=== PATIENT | male | born 1970 | race Caucasian/White ===

== ENCOUNTER 2021-12-22 16:58 | Inpatient (IN) ==
[2021-12-22] MEDS ORDERED: NS 1,000 ML IV 1,000 ML ONE (19:04)
--- NOTE | 2021-12-22 19:04 | DR.GENAD ---
HPI Time Seen Time Seen by Provider: 12/22/21 18:56 PCP Primary Care Physician: DIONNE RAMOS HPI Comment HPI Comment: PATIENT IS 51YR OLD MALE WITH BELOW HISTORY. Complaint/Symptoms Chief Complaint Doctors Comments: IV DRUG USE WEDNESDAY IN LEFT FOREARM. ON WEDNESDAY, REDNESS, SWELLING AND PAIN LEFT HAND AND FOREARM. LOW GRADE FEVER. SEEN AT [facility] [[email or web address] TO DAY AND REFER TO ER. OBVIOUD NEEDLE TRACT NOTED BOTH UPPER EXTREMITIES. Chief Complaint:: PT INJECTED "BAD HEROIN" INTO VEINS ON WEDNESDAY AND HE WOKE UP WEDNESDAY AND LEFT ARM WAS SWOLLEN, RED AND PAINFUL TO TOUCH. PT STATES HE WAS RUNNING FEVER AT HOME, TOOK TYLENOL AT HOME. 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 Improves:: KEEPING HAND STILL. Associated Signs and Symptoms Associated Signs and Symptoms: MUSCLE PAIN. Other History Other History: DM, HTN, IV DRUG USE. PMH PMH Past Medical History: Yes Past Medical History: COPD, Diabetes and Hypertension Past Medical History Comment: IV DRUG USER, DIVERTICULITIS Past Surgical History: Yes Surgical History: Other Past Surgical History Comment: MRSA Family History History of Family Medical Conditions: Yes Family Medical History: Cancer and [place] Social History Does any household member use tobacco: No Alcohol Use: None Do you use any recreational Drugs:: Yes (HEROIN,METH) Lives With: Dad Lives Where: Home Travel Risk Coronavirus risk:travel/contact w/high risk person: No Has patient experienced Coronavirus symptoms: Yes Coronavirus symptoms experienced: Fever Infectious screening In the last 2 months have you had wt loss of >10#?: NO Have you had fever, night sweats or hemotysis?: No Have you traveled outside the country in the last 6 months?: No Isolation: Standard ROS Review of Systems Constitutional: See HPI and Fever; negative Weakness and Fatigue Eyes: No Symptoms Reported and See HPI ENTM: No Symptoms Reported and See HPI; negative Nose Discharge and Nose Congestion Respiratoy: No Symptoms Reported and See HPI; negative Moist Cough, Short of Breath and Wheezing Cardiovascular: No Symptoms Reported and See HPI; negative Chest Pain and Edema Gastrointestinal/Abdominal: No Symptoms Reported and See HPI; negative Abdominal Pain, Diarrhea and Vomiting Genitourinary: No Symptoms Reported and See HPI; negative Dysuria, Frequency and Hematuria Neurological: No Symptoms Reported and See HPI; negative Headache, Weakness and Dizziness Musculoskeletal: No Symptoms Reported, See HPI, Forearm (LEFT FOREARM PAIN, REDNESS AND SWELLING.) and Hand (LEFT HAND SWOLLEN AND RED.); negative Back Pain Integumentary: See HPI and Change in Color; negative Rash and Juandice Hematologic/Lymphatic: No Symptoms Reported and See HPI Endocrine: No Symptoms Reported and See HPI Psychiatric: No Symptoms Reported and See HPI All Other Systems: Reviewed and Negative PE Vital Signs Vitals: Temperature 99.5 F Pulse Rate 102 Respiratory Rate 20 Blood Pressure 130/77 O2 Sat by Pulse Oximetry 100 General Limitations: No Limitations General Appearance: Alert and In No Apparent Distress Head Head Exam: Normal Inspection Eyes Eye exam: Normal Appearance; negative Scleral Icterus and Conjunctival Injection ENT ENT Exam: Normal Exam, Normal Oropharynx, Normal External Ear Exam and TM's Normal Bilaterally External Ear Exam: Normal External Inspection; negative Mastoid Tenderness TM/Canal Exam: Bilateral: Normal Nose Exam: Normal Nose Exam Mouth Exam: Normal Inspection; negative Lip Swelling and Tongue Swelling Throat Exam: Normal Inspection; negative Tonsillar Erythema, Tonsillomegaly and Tonsillar Exudate Neck Neck Exam: Normal Inspection and Trachea Midline; negative Tenderness Chest Chest Inspection: Normal Inspection and Symmetric Chest Wall Rise; negative Tenderness Respiratory Respiratory Exam: Normal Lung Sounds Bilat; negative Accessory Muscle Use, Chest Wall Tenderness and Respiratory Distress Respiratory Exam: Bilateral: Clear to Auscultation Cardiovascular Cardiovascular Exam: Regular Rate, Normal Rhythm and Normal Heart Sounds; negative Systolic Murmur and Diastolic Murmur Abdominal Exam Abdominal Exam: Normal Inspection, Normal Bowel Sounds and Soft; negative Tenderness Extremities Extremities Exam: Tenderness (TENDERNESS LEFT HAND AND FOREARM WITH REDNESS AND SWELLING.) Back Back Exam: Normal Inspection Neurologic Neurological Exam: Alert and Oriented X3; negative Motor Sensory Deficit Psychiatric Psychiatric Exam: Normal Affect and Normal Mood Skin Skin Exam: Erythema (REDNESS, SWELLING AND TENDERNESS LT FOREARM AND HAND.) MDM Differential Diagnosis Differential Diagnosis: CELLULITIS LEFT FOREARM AND HAND. IV DRUG USE. COURSE Treatment Treatment: SEE ORDERS DONE WHILE PATIENT WAS IN ER. NS 1L IV BOLUS, TORADOL 30MG IV, MORPHIN 4MBG IV, INVANC 1GM IVPB, VANCOMYCIN 1GM IVPB WAS GIVEN PATIENT WHILE IN ER. LABS AND XRAY REPORT DISCUSSED WITH PATIENT. [facility]. Consultation Consultation Comments: DISCUSSED PATIENT WITH DR. IRELAND. HE WILL ADMIT PATIENT. Education/Counseling Education/Counseling: Patient Educated On: Diagnosis ROR Labs Reviewed Laboratory Results Reviewed?: Yes Result Diagrams: 12/25/21 06:20 12/25/21 06:20 Laboratory: 12/22/21 19:52 Blood Blood Culture - Preliminary 12/22/21 19:38 Blood Blood Culture - Preliminary WBC 10.2 X10^3/uL (3.6-10.0) H 12/22/21 19:38 RBC 4.30 X10^6/uL (4.7-6.0) L 12/22/21 19:38 Hgb 12.4 g/dL (13.5-18.0) L 12/22/21 19:38 Hct 35.6 % (42.0-54.0) L 12/22/21 19:38 MCV 82.9 fL (80.0-100.0) 12/22/21 19:38 MCH 28.8 pg (27.0-34.0) 12/22/21 19:38 MCHC 34.7 g/dL (33.0-35.0) 12/22/21 19:38 RDW 14.4 % (11.6-16.5) 12/22/21 19:38 Plt Count 122 X10^3/uL (150.0-450.0) L 12/22/21 19:38 MPV 8.7 fL (7.4-11.0) 12/22/21 19:38 Neut % (Auto) 74.0 % (42.0-75.0) 12/22/21 19:38 Lymph % (Auto) 12.4 % (21.0-51.0) L 12/22/21 19:38 [place] % (Auto) 12.9 % (0.0-13.0) 12/22/21 19:38 Eos % (Auto) 0.3 % (0.9-2.9) L 12/22/21 19:38 Baso % (Auto) 0.4 % (0.2-1.0) 12/22/21 19:38 Neut # (Auto) 7.5 x10^3/uL (2.2-4.8) H 12/22/21 19:38 Lymph # (Auto) 1.3 X10^3/uL (1.3-2.9) 12/22/21 19:38 [place] # (Auto) 1.3 x10^3/uL (0.3-0.8) H 12/22/21 19:38 Eos # (Auto) 0.0 x10^3/uL (0.0-0.2) 12/22/21 19:38 Baso # (Auto) 0.0 X10^3/uL (0.0-0.1) 12/22/21 19:38 Absolute Nucleated RBC 0.1 /100WBC 12/22/21 19:38 ESR 58 MM/HOUR (0-15) H 12/22/21 19:38 Sodium 125 mmol/L (136-145) L* 12/22/21 19:38 Corrected Sodium 130 mmol/L (136-145) L 12/22/21 19:38 Potassium 4.1 mmol/L (3.5-5.1) 12/22/21 19:38 Chloride 91 mmol/L (98-107) L 12/22/21 19:38 Carbon Dioxide 28.2 mmol/L (21-32) 12/22/21 19:38 BUN 6 mg/dL (7-18) L 12/22/21 19:38 Creatinine 0.57 mg/dL (0.70-1.30) L 12/22/21 19:38 Est GFR (MDRD) Af Amer > 60 (>60) 12/22/21 19:38 Est GFR (MDRD) Non-Af > 60 (>60) 12/22/21 19:38 Glucose 308 mg/dL (65-99) H 12/22/21 19:38 Calcium 8.5 mg/dL (8.5-10.1) 12/22/21 19:38 Corrected Calcium 9.3 mg/dL (8.5-10.1) 12/22/21 19:38 Total Bilirubin 0.30 mg/dL (0.2-1.0) 12/22/21 19:38 AST 17 Units/L (15-37) 12/22/21 19:38 ALT 26 Units/L (12-78) 12/22/21 19:38 Alkaline Phosphatase 147 Units/L (46-116) H 12/22/21 19:38 C-Reactive Protein 126.60 mg/L (0-3.0) H 12/22/21 19:38 Total Protein 7.2 g/dL (6.4-8.2) 12/22/21 19:38 Albumin 3.0 g/dL (3.4-5.0) L 12/22/21 19:38 Globulin 4.2 g/dL (2.5-4.5) 12/22/21 19:38 Albumin/Globulin Ratio 0.7 Ratio (1.1-2.1) L 12/22/21 19:38 Specimen Type Random urine 12/22/21 21:01 Urine Color Yellow (YELLOW) 12/22/21 21: Urine Appearance Clear (CLEAR) 12/22/21 21: Urine pH 8.0 (5.0 - 8.0) 12/22/21 21: Ur Specific [place] 1.015 (1.000-1.030) 12/22/21 21: Urine Protein Negative (NEGATIVE) 12/22/21 21: Urine Glucose (UA) 4+ (NEGATIVE) 12/22/21 21: Urine Ketones 1+ (NEGATIVE) 12/22/21 21:01 Urine Blood Negative (NEGATIVE) 12/22/21 21: Urine Nitrite Negative (NEGATIVE) 12/22/21 21: Urine Bilirubin Negative (NEGATIVE) 12/22/21 21: Urine Urobilinogen Normal (NORMAL) 12/22/21 21: Ur Leukocyte Esterase Negative (NEGATIVE) 12/22/21 21: Urine Opiates Screen Positive (NEG=<300) 12/22/21 21: Urine Methadone Screen Negative (NEG=<300) 12/22/21 21: Ur Barbiturates Screen Negative (NEG=<200) 12/22/21 21: Ur Phencyclidine Scrn Negative (NEG=<25) 12/22/21 21: Ur Amphetamines Screen Negative (NEG=<1000) 12/22/21 21: U Benzodiazepines Scrn Negative (NEG=<200) 12/22/21 21:01 Urine Cocaine Screen Negative (NEG=<300) 12/22/21 21:01 U Marijuana (THC) Screen Negative (NEG=<50) 12/22/21 21:01 XRAY XRAY Interpreted by: Radiologist (REPORT NOTED.) and Self Opioid Opioid Risk Tool Age (Shay box if 16-45): No History of Preadolescent Sexual Abuse: No Total: 0 Total Score Risk Category: Low Risk Copyright: Luca NEELY predicting aberrant behaviors Diagnosis Discharge Problem: Cellulitis of forearm, left, Cellulitis of left hand Instructions Forms: Precautions for COVID19 [facility] Social Distancing
[2021-12-22] MEDS: NS 1,000 ML IV 1,000 ML IV SCH (19:54)
[2021-12-22 20:01] LABS: BASOPHILS % (AUTO) 0.4 % (0.2-1.0); EOSINOPHILS % (AUTO) 0.3 % (0.9-2.9); HEMATOCRIT 35.6 % (42.0-54.0); HEMOGLOBIN 12.4 g/dL (13.5-18.0); LYMPHOCYTES # (AUTO) 1.3 X10^3/uL (1.3-2.9); LYMPHOCYTES % (AUTO) 12.4 % (21.0-51.0); MEAN CORPUSCULAR HEMOGLOBIN 28.8 pg (27.0-34.0); MEAN CORPUSCULAR HGB CONC 34.7 g/dL (33.0-35.0); MEAN CORPUSCULAR VOLUME 82.9 fL (80.0-100.0); MEAN PLATELET VOLUME 8.7 fL (7.4-11.0); MONOCYTES # (AUTO) 1.3 x10^3/uL (0.3-0.8); MONOCYTES % (AUTO) 12.9 % (0.0-13.0); NEUTROPHILS # (AUTO) 7.5 x10^3/uL (2.2-4.8); RED CELL DISTRIBUTION WIDTH 14.4 % (11.6-16.5); WHITE BLOOD COUNT 10.2 X10^3/uL (3.6-10.0)
[2021-12-22 20:12] LABS: ALANINE AMINOTRANSFERASE 26 Units/L (12-78); ALKALINE PHOSPHATASE 147 Units/L (46-116); ASPARTATE AMINO TRANSFERASE 17 Units/L (15-37); BLOOD UREA NITROGEN 6 mg/dL (7-18); CALCIUM 8.5 mg/dL (8.5-10.1); CARBON DIOXIDE 28.2 mmol/L (21-32); CHLORIDE 91 mmol/L (98-107); COR CA(FOR HYPOALB) 9.3 mg/dL (8.5-10.1); COR NA(FOR HYPERGLY) 130 mmol/L (136-145); CREATININE 0.57 mg/dL (0.70-1.30); TOTAL PROTEIN 7.2 g/dL (6.4-8.2); eGFR NON BLACK RACES > 60 (>60)
[2021-12-22 20:19] LABS: SODIUM 125 mmol/L (136-145)
[2021-12-22 21:21] LABS: BILIRUBIN,URINE NEGATIVE (NEGATIVE); BLOOD/HEMOGLOBIN,URINE NEGATIVE (NEGATIVE); GLUCOSE, URINE 4+ (NEGATIVE); KETONES,URINE 1+ (NEGATIVE); LEUKOCYTE ESTERASE ,URINE NEGATIVE (NEGATIVE); NITRITES,URINE NEGATIVE (NEGATIVE); PROTEIN,URINE NEGATIVE (NEGATIVE); UROBILINOGEN,URINE NORMAL (NORMAL)
[2021-12-22 21:24] LABS: APPEARANCE,URINE CLEAR (CLEAR); COLOR,URINE YELLOW (YELLOW)
[2021-12-22] MEDS ORDERED: TORADOL 30 MG VIAL IVP ONE (21:28)
[2021-12-22] MEDS ORDERED: TORADOL 30 MG VIAL ONE (21:30)
[2021-12-22] MEDS ORDERED: ZOFRAN INJ 4 MG VIAL IVP ONE (22:23)
[2021-12-22] MEDS ORDERED: MORPHINE SULFATE INJ 4 MG IVP ONE (22:23)
[2021-12-22] MEDS ORDERED: ZOFRAN INJ 4 MG VIAL ONE (22:24)
[2021-12-22] MEDS ORDERED: MORPHINE SULFATE INJ 4 MG ONE (22:24)
--- NOTE | 2021-12-22 23:38 | RAD ---
EXAM: LEFT HAND X-RAY SERIESHISTORY: Hand pain and tenderness.TECHNIQUE: 2 viewsCOMPARISON: None available.FINDINGS:There is no acute bony fracture, or joint subluxation or dislocation seen. No focal bone erosion or sclerosis is seen. No evidence for inflammatory or degenerative arthritis is seen. No soft tissue emphysema, radiodense soft tissue abnormality or foreign body is seen.IMPRESSION:1. No acute bony fracture, or joint subluxation or dislocation seen.2. No soft tissue emphysema, radiodense soft tissue abnormality or foreign body seen.3. Consider follow-up evaluation with MRI as clinically warranted or if symptoms persist or worsen.Electronically signed by: Carolina Rodríguez (Dec 22, 2021 23:38:10)
--- NOTE | 2021-12-22 23:48 | RAD ---
EXAM: LEFT FOREARM X-RAY SERIESHISTORY: Arm pain and swelling. Injected "bad heroin" on Wednesday.TECHNIQUE: 2 viewsCOMPARISON: None available.FINDINGS:There is no acute bony fracture, or joint subluxation or dislocation seen. No focal bone erosion or sclerosis is seen. No evidence for inflammatory or degenerative arthritis is seen. No soft tissue emphysema, radiodense soft tissue abnormality or foreign body is seen.IMPRESSION:1. No acute bony fracture, or joint subluxation or dislocation seen.2. No soft tissue emphysema, radiodense soft tissue abnormality or foreign body seen.Electronically signed by: Carolina Rodríguez (Dec 22, 2021 23:47:14)
[2021-12-23] MEDS ORDERED: INVanz INJ 1 GRAM VIAL 1 G in NS 100 ML IV 100 ML IV SCH (00:06)
[2021-12-23] MEDS ORDERED: INVanz INJ 1 GRAM VIAL ONE (00:29)
[2021-12-23] MEDS ORDERED: NS 100 ML IV 100 ML ONE (00:29)
[2021-12-23] MEDS ORDERED: ZOFRAN TAB 4 MG PO PRN (00:38)
[2021-12-23] MEDS ORDERED: MOTRIN TAB 600 MG PO PRN (00:38)
[2021-12-23] MEDS ORDERED: NS 1,000 ML IV 1,000 ML IV SCH (01:00)
[2021-12-23 01:47] VITALS: BMI 21.3
[2021-12-23] MEDS: PHARMACY CONSULT - VANCOMYCIN XX SCH (01:51)
[2021-12-23] MEDS: MORPHINE SULFATE INJ 2 MG INJ IVP PRN ×5 (02:39→21:08)
[2021-12-23] MEDS: NS 1,000 ML IV 1,000 ML IV SCH ×4 (03:10→19:49)
[2021-12-23 04:36] LABS: BASOPHILS # (AUTO) 0.1 X10^3/uL (0.0-0.1); BASOPHILS % (AUTO) 0.7 % (0.2-1.0); EOSINOPHILS # (AUTO) 0.1 x10^3/uL (0.0-0.2); EOSINOPHILS % (AUTO) 0.6 % (0.9-2.9); HEMATOCRIT 34.1 % (42.0-54.0); HEMOGLOBIN 11.7 g/dL (13.5-18.0); LYMPHOCYTES # (AUTO) 1.1 X10^3/uL (1.3-2.9); LYMPHOCYTES % (AUTO) 12.1 % (21.0-51.0); MEAN CORPUSCULAR HEMOGLOBIN 28.6 pg (27.0-34.0); MEAN CORPUSCULAR HGB CONC 34.4 g/dL (33.0-35.0); MEAN PLATELET VOLUME 8.8 fL (7.4-11.0); MONOCYTES % (AUTO) 10.3 % (0.0-13.0); NEUTROPHILS # (AUTO) 7.1 x10^3/uL (2.2-4.8); NEUTROPHILS % (AUTO) 76.3 % (42.0-75.0); RED BLOOD COUNT 4.11 X10^6/uL (4.7-6.0); RED CELL DISTRIBUTION WIDTH 14.2 % (11.6-16.5); WHITE BLOOD COUNT 9.3 X10^3/uL (3.6-10.0)
[2021-12-23 05:11] LABS: ALANINE AMINOTRANSFERASE 21 Units/L (12-78); ALBUMIN 2.6 g/dL (3.4-5.0); ALKALINE PHOSPHATASE 139 Units/L (46-116); ASPARTATE AMINO TRANSFERASE 16 Units/L (15-37); BLOOD UREA NITROGEN 8 mg/dL (7-18); CHLORIDE 95 mmol/L (98-107); COR CA(FOR HYPOALB) 9.1 mg/dL (8.5-10.1); COR NA(FOR HYPERGLY) 134 mmol/L (136-145); CREATININE 0.68 mg/dL (0.70-1.30); SODIUM 128 mmol/L (136-145); TOTAL PROTEIN 6.6 g/dL (6.4-8.2); eGFR NON BLACK RACES > 60 (>60)
[2021-12-23] MEDS: VANCOMYCIN IV *PREMIX 1 G/200 ML BAG 1 G/200 ML PIGGYBACK IV SCH ×2 (08:09→21:07)
[2021-12-23] MEDS: VSL#3 PO SCH (08:10)
[2021-12-23] MEDS: LOVENOX INJ 40 MG SYR SC SCH (08:29)
[2021-12-23] MEDS: TORADOL 30 MG VIAL IVP PRN ×2 (12:25→17:29)
[2021-12-23] MEDS ORDERED: HumaLOG SC PRN (12:26)
[2021-12-23] MEDS: PERCOCET TAB 5/325 MG PO PRN ×2 (13:18→19:15)
[2021-12-23] MEDS: NovoLIN R (or HumuLIN R) SC PRN ×2 (17:30→21:00)
--- NOTE | 2021-12-23 20:55 | DR.H&P ---
H&P - History & Physical for Day of: H&P Date: 12/22/21 - Chief Complaint Chief Complaint: Left arm pain and sweling. - History of Present Illness History of Present Illness: Patient is a 51 year old white male who is being admitted due to cellulitis left arm from IV drug use. 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 Patient has had cellulitis in the past due to IV drug use. History of MRSA. Patient reports severe pain to arm with swelling and fever. 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 PMH COPD, DM, HTN. Patient states he plans to get back on suboxone once discharged. - Past Medical History Past Medical History: Hypertension, Diabetes, COPD - Past Surgical History Surgical History: Other (Chest surgery due to cellulitis from IV drug use. ) - Family History Family Medical History: Diabetes Mellitus - Social History Does patient currently use any type of tobacco product: Yes Have you used tobacco products in the last 12 months: Yes Type of Tobacco Use: Cigarettes Does any household member use tobacco: No Alcohol Use: None Drug Use: Prescription Drugs, Cocaine, Methamphetamine, Marijuana - Medications Home Medications: Penicillins Allergy (Verified 12/22/21 17:12) CONTINUE taking the following medications alogliptin-metformin [Kazano] 1 tab PO BID 12/22/21 [History] dulaglutide [Trulicity] 0.75 mg SUBCUT QWEEK 12/22/21 [History] lisinopril 5 mg PO DAILY 12/22/21 [History] propranolol 2.5 mg PO BID 12/22/21 [History] - Review of Systems Constitutional: See HPI Eyes: See HPI ENT: See HPI Respiratory: See HPI Cardiovascular: See HPI Gastrointestinal: See HPI Genitourinary: See HPI Musculoskeletal: See HPI Skin: See HPI Neurological: See HPI - Physical Exam Vital Signs: Temperature 97.9 F Pulse Rate [Brachial] 78 Pulse Rate [Right Brachial] 88 Pulse Rate 102 Respiratory Rate 16 Blood Pressure [Left Arm] 108/58 Blood Pressure [Right Arm] 129/66 Blood Pressure 130/77 O2 Sat by Pulse Oximetry 100 Oriented: Normal, Time, Person, Place Eyes: Normal Ear: Normal Nose: Normal Throat: Normal Respiratory: Clear Throughout Cardiovascular: Normal : Normal Auscultation: Bowel Sounds: Normal Palpation: Normal Tenderness: Normal Skin: Red, Tender, Hot, Other (Left upper arm extensive cellulitis) Musculoskeletal: Normal Psychiatric: Anxiety Mood Description: Anxious Affect: Anxious Speech Pattern: Clear, Appropriate - Assessment/Plan (1) Cellulitis of left hand Status: Acute (2) Cellulitis of forearm, left Status: Acute Plan: Admit. IV antibiotics. Pain control. Repeat labs in am. Cultures pending (3) Left arm pain Status: Acute (4) Hypertension Status: Chronic (5) Diabetes Qualifiers: Diabetes mellitus type: type 2 Status: Chronic (6) COPD (chronic obstructive pulmonary disease) Status: Chronic - Allergies Allergies/Adverse Reactions: Allergies Allergy/AdvReac Type Severity Reaction Status Date / Time Penicillins Allergy Verified 12/22/21 17:12
--- NOTE | 2021-12-23 21:00 | PCM.PROG ---
Progress Note - Subjective Subjective: Patient is a 51 year old male who was admitted as per HPI. Patient continues to report pain. Minimal improvement in cellulitis of left arm. No new concerns or issues. - Past Medical Family Social History Past Med/Fam/Surg Hx: No changes since H&P Allergies: Allergies Penicillins Allergy (Verified 12/22/21 17:12) - Review of Systems ROS: No change since H&P - Vital Signs and I&O's Vital Signs: Temperature 97.9 F Pulse Rate [Brachial] 78 Pulse Rate [Right Brachial] 88 Pulse Rate 102 Respiratory Rate 16 Blood Pressure [Left Arm] 108/58 Blood Pressure [Right Arm] 129/66 Blood Pressure 130/77 O2 Sat by Pulse Oximetry 100 Intake and Output: Intake & Output 12/20/21 12/21/21 12/22/21 12/23/21 23:59 23:59 23:59 23:59 Intake Total 2957 / 2957 Output Total 2300 / 2300 Balance 657 / 657 - Physical Exam Oriented: Normal, Time, Person, Place Eyes: Normal Ear: Normal Nose: Normal Throat: Normal Respiratory: Normal Cardiovascular: Normal : Normal Auscultation: Bowel Sounds: Normal Palpation: Normal Tenderness: Normal Skin: Red, Tender, Hot, Other (Left upper arm extensive cellulitis) Musculoskeletal: Normal Psychiatric: Anxiety Mood Description: Anxious Affect: Anxious Speech Pattern: Clear, Appropriate - Laboratory and Diagnostics Result Diagrams: 12/23/21 03:50 12/23/21 03:50 Labs: Laboratory WBC 9.3 X10^3/uL (3.6-10.0) 12/23/21 03:50 RBC 4.11 X10^6/uL (4.7-6.0) L 12/23/21 03:50 Hgb 11.7 g/dL (13.5-18.0) L 12/23/21 03:50 Hct 34.1 % (42.0-54.0) L 12/23/21 03:50 MCV 83.0 fL (80.0-100.0) 12/23/21 03:50 MCH 28.6 pg (27.0-34.0) 12/23/21 03:50 MCHC 34.4 g/dL (33.0-35.0) 12/23/21 03:50 RDW 14.2 % (11.6-16.5) 12/23/21 03:50 Plt Count 133 X10^3/uL (150.0-450.0) L 12/23/21 03:50 MPV 8.8 fL (7.4-11.0) 12/23/21 03:50 Neut % (Auto) 76.3 % (42.0-75.0) H 12/23/21 03:50 Lymph % (Auto) 12.1 % (21.0-51.0) L 12/23/21 03:50 [place] % (Auto) 10.3 % (0.0-13.0) 12/23/21 03:50 Eos % (Auto) 0.6 % (0.9-2.9) L 12/23/21 03:50 Baso % (Auto) 0.7 % (0.2-1.0) 12/23/21 03:50 Neut # (Auto) 7.1 x10^3/uL (2.2-4.8) H 12/23/21 03:50 Lymph # (Auto) 1.1 X10^3/uL (1.3-2.9) L 12/23/21 03:50 [place] # (Auto) 1.0 x10^3/uL (0.3-0.8) H 12/23/21 03:50 Eos # (Auto) 0.1 x10^3/uL (0.0-0.2) 12/23/21 03:50 Baso # (Auto) 0.1 X10^3/uL (0.0-0.1) 12/23/21 03:50 Absolute Nucleated RBC 0.0 /100WBC 12/23/21 03:50 ESR 58 MM/HOUR (0-15) H 12/22/21 19:38 Sodium 128 mmol/L (136-145) L 12/23/21 03:50 Corrected Sodium 134 mmol/L (136-145) L 12/23/21 03:50 Potassium 3.5 mmol/L (3.5-5.1) 12/23/21 03:50 Chloride 95 mmol/L (98-107) L 12/23/21 03:50 Carbon Dioxide 25.0 mmol/L (21-32) 12/23/21 03:50 BUN 8 mg/dL (7-18) 12/23/21 03:50 Creatinine 0.68 mg/dL (0.70-1.30) L 12/23/21 03:50 Est GFR (MDRD) Af Amer > 60 (>60) 12/23/21 03:50 Est GFR (MDRD) Non-Af > 60 (>60) 12/23/21 03:50 Glucose 341 mg/dL (65-99) H 12/23/21 03:50 Calcium 8.0 mg/dL (8.5-10.1) L 12/23/21 03:50 Corrected Calcium 9.1 mg/dL (8.5-10.1) 12/23/21 03:50 Total Bilirubin 0.30 mg/dL (0.2-1.0) 12/23/21 03:50 AST 16 Units/L (15-37) 12/23/21 03:50 ALT 21 Units/L (12-78) 12/23/21 03:50 Alkaline Phosphatase 139 Units/L (46-116) H 12/23/21 03:50 C-Reactive Protein 126.60 mg/L (0-3.0) H 12/22/21 19:38 Total Protein 6.6 g/dL (6.4-8.2) 12/23/21 03:50 Albumin 2.6 g/dL (3.4-5.0) L 12/23/21 03:50 Globulin 4.0 g/dL (2.5-4.5) 12/23/21 03:50 Albumin/Globulin Ratio 0.7 Ratio (1.1-2.1) L 12/23/21 03:50 Specimen Type Random urine 12/22/21 21:01 Urine Color Yellow (YELLOW) 12/22/21 21:01 Urine Appearance Clear (CLEAR) 12/22/21 21:01 Urine pH 8.0 (5.0 - 8.0) 12/22/21 21:01 Ur Specific [place] 1.015 (1.000-1.030) 12/22/21 21:01 Urine Protein Negative (NEGATIVE) 12/22/21 21:01 Urine Glucose (UA) 4+ (NEGATIVE) 12/22/21 21: Urine Ketones 1+ (NEGATIVE) 12/22/21 21:01 Urine Blood Negative (NEGATIVE) 12/22/21 21: Urine Nitrite Negative (NEGATIVE) 12/22/21 21: Urine Bilirubin Negative (NEGATIVE) 12/22/21 21: Urine Urobilinogen Normal (NORMAL) 12/22/21 21: Ur Leukocyte Esterase Negative (NEGATIVE) 12/22/21 21: Urine Opiates Screen Positive (NEG=<300) 12/22/21 21: Urine Methadone Screen Negative (NEG=<300) 12/22/21 21: Ur Barbiturates Screen Negative (NEG=<200) 12/22/21 21: Ur Phencyclidine Scrn Negative (NEG=<25) 12/22/21 21: Ur Amphetamines Screen Negative (NEG=<1000) 12/22/21 21: U Benzodiazepines Scrn Negative (NEG=<200) 12/22/21 21: Urine Cocaine Screen Negative (NEG=<300) 12/22/21 21: U Marijuana (THC) Screen Negative (NEG=<50) 12/22/21 21:01 - Plan (1) Cellulitis of left hand Status: Acute (2) Cellulitis of forearm, left Status: Acute Plan: Admit. IV antibiotics. Pain control. Repeat labs in am. Cultures pending (3) Left arm pain Status: Acute (4) Hypertension Status: Chronic (5) Diabetes Status: Chronic Qualifiers: Diabetes mellitus type: type 2 (6) COPD (chronic obstructive pulmonary disease) Status: Chronic
[2021-12-23] MEDS: INVanz INJ 1 GRAM VIAL 1 G in NS 100 ML IV 100 ML IV SCH (21:06)
[2021-12-23] MEDS: INDERAL TAB 10 MG PO SCH (21:37)
[2021-12-23] MEDS: [UNRECOGNIZED DRUG - OTHER] PO SCH (21:38)
[2021-12-24] MEDS: PERCOCET TAB 5/325 MG PO PRN ×3 (02:21→15:47)
[2021-12-24] MEDS: NS 1,000 ML IV 1,000 ML IV SCH ×4 (04:18→21:04)
[2021-12-24] MEDS: MORPHINE SULFATE INJ 2 MG INJ IVP PRN ×6 (04:19→21:05)
[2021-12-24 04:37] LABS: BASOPHILS % (AUTO) 0.4 % (0.2-1.0); EOSINOPHILS # (AUTO) 0.1 x10^3/uL (0.0-0.2); EOSINOPHILS % (AUTO) 1.5 % (0.9-2.9); HEMATOCRIT 36.9 % (42.0-54.0); HEMOGLOBIN 12.8 g/dL (13.5-18.0); LYMPHOCYTES # (AUTO) 1.5 X10^3/uL (1.3-2.9); LYMPHOCYTES % (AUTO) 19.9 % (21.0-51.0); MEAN CORPUSCULAR HEMOGLOBIN 28.6 pg (27.0-34.0); MEAN CORPUSCULAR HGB CONC 34.6 g/dL (33.0-35.0); MEAN CORPUSCULAR VOLUME 82.5 fL (80.0-100.0); MEAN PLATELET VOLUME 8.2 fL (7.4-11.0); MONOCYTES # (AUTO) 0.6 x10^3/uL (0.3-0.8); MONOCYTES % (AUTO) 8.7 % (0.0-13.0); NEUTROPHILS # (AUTO) 5.1 x10^3/uL (2.2-4.8); NEUTROPHILS % (AUTO) 69.5 % (42.0-75.0); RED BLOOD COUNT 4.48 X10^6/uL (4.7-6.0); RED CELL DISTRIBUTION WIDTH 14.3 % (11.6-16.5); WHITE BLOOD COUNT 7.4 X10^3/uL (3.6-10.0)
[2021-12-24 04:44] LABS: ALANINE AMINOTRANSFERASE 20 Units/L (12-78); ALBUMIN 2.7 g/dL (3.4-5.0); ALKALINE PHOSPHATASE 128 Units/L (46-116); ASPARTATE AMINO TRANSFERASE 14 Units/L (15-37); BLOOD UREA NITROGEN 9 mg/dL (7-18); CALCIUM 8.6 mg/dL (8.5-10.1); CARBON DIOXIDE 27.2 mmol/L (21-32); CHLORIDE 98 mmol/L (98-107); COR CA(FOR HYPOALB) 9.6 mg/dL (8.5-10.1); COR NA(FOR HYPERGLY) 134 mmol/L (136-145); CREATININE 0.52 mg/dL (0.70-1.30); MAGNESIUM 1.6 mg/dL (1.7-2.9); SODIUM 132 mmol/L (136-145); TOTAL PROTEIN 6.8 g/dL (6.4-8.2); eGFR NON BLACK RACES > 60 (>60)
[2021-12-24] MEDS: PHARMACY CONSULT - VANCOMYCIN XX SCH (05:15)
[2021-12-24] MEDS: TORADOL 30 MG VIAL IVP PRN ×2 (07:35→13:50)
[2021-12-24] MEDS: VANCOMYCIN IV *PREMIX 1 G/200 ML BAG 1 G/200 ML PIGGYBACK IV SCH ×2 (09:00→22:17)
[2021-12-24] MEDS: VSL#3 PO SCH (09:00)
[2021-12-24] MEDS ORDERED: DULAGLUTIDE 0.75 MG/0.5 ML SUBCUT SCH (09:00)
[2021-12-24] MEDS: [UNRECOGNIZED DRUG - OTHER] PO SCH ×2 (09:25→21:03)
[2021-12-24] MEDS: ZESTRIL TAB 5 MG PO SCH (09:26)
[2021-12-24] MEDS: INDERAL TAB 10 MG PO SCH ×2 (09:26→21:03)
[2021-12-24] MEDS: LOVENOX INJ 40 MG SYR SC SCH (09:48)
[2021-12-24] MEDS: NovoLIN R (or HumuLIN R) SC PRN ×2 (12:20→21:13)
[2021-12-24] MEDS ORDERED: POTASSIUM CHLORIDE LIQ 20 MEQ UDC PO PRN (15:18)
[2021-12-24] MEDS ORDERED: KLOR-CON PO PRN (15:18)
[2021-12-24] MEDS ORDERED: MICRO K EXTEN CAP 10 MEQ PO PRN (15:18)
[2021-12-24] MEDS ORDERED: POTASSIUM CHL 40 MEQ/NS 0.45% 500 ML IV PRN (15:18)
[2021-12-24] MEDS ORDERED: POTASSIUM CHL 60 MEQ/NS 0.45% 500 ML IV PRN (15:18)
[2021-12-24] MEDS ORDERED: K-DUR TAB 20 MEQ PO PRN (15:18)
[2021-12-24] MEDS ORDERED: K-RIDER 10 MEQ/NS 100 ML 10 MEQ/100 ML BAG IV PRN (15:18)
[2021-12-24] MEDS: MAGNESIUM SULFATE 1 GRAM/100 mL PREMIX 1 G/100 ML BAG IV PRN ×2 (15:46→17:41)
[2021-12-24] MEDS ORDERED: PHARMACY COMMENT IV NR (20:30)
[2021-12-24 21:02] LABS: CREATININE 0.45 mg/dL (0.70-1.30); VANCOMYCIN,TROUGH 4.5 ug/mL (15-20)
[2021-12-24] MEDS: INVanz INJ 1 GRAM VIAL 1 G in NS 100 ML IV 100 ML IV SCH (21:02)
[2021-12-25] MEDS: MORPHINE SULFATE INJ 2 MG INJ IVP PRN ×4 (01:15→19:42)
[2021-12-25] MEDS: PERCOCET TAB 5/325 MG PO PRN ×4 (02:55→21:55)
[2021-12-25] MEDS: NS 1,000 ML IV 1,000 ML IV SCH ×3 (03:12→19:04)
[2021-12-25] MEDS: TORADOL 30 MG VIAL IVP PRN ×3 (05:10→18:12)
[2021-12-25 06:30] LABS: BASOPHILS # (AUTO) 0.1 X10^3/uL (0.0-0.1); BASOPHILS % (AUTO) 0.7 % (0.2-1.0); EOSINOPHILS # (AUTO) 0.2 x10^3/uL (0.0-0.2); EOSINOPHILS % (AUTO) 2.1 % (0.9-2.9); HEMATOCRIT 35.4 % (42.0-54.0); HEMOGLOBIN 12.3 g/dL (13.5-18.0); LYMPHOCYTES # (AUTO) 1.8 X10^3/uL (1.3-2.9); LYMPHOCYTES % (AUTO) 21.8 % (21.0-51.0); MEAN CORPUSCULAR HEMOGLOBIN 28.5 pg (27.0-34.0); MEAN CORPUSCULAR HGB CONC 34.9 g/dL (33.0-35.0); MEAN CORPUSCULAR VOLUME 81.7 fL (80.0-100.0); MEAN PLATELET VOLUME 7.2 fL (7.4-11.0); MONOCYTES # (AUTO) 0.9 x10^3/uL (0.3-0.8); MONOCYTES % (AUTO) 10.7 % (0.0-13.0); NEUTROPHILS # (AUTO) 5.2 x10^3/uL (2.2-4.8); NEUTROPHILS % (AUTO) 64.7 % (42.0-75.0); RED BLOOD COUNT 4.33 X10^6/uL (4.7-6.0); RED CELL DISTRIBUTION WIDTH 14.8 % (11.6-16.5); WHITE BLOOD COUNT 8.1 X10^3/uL (3.6-10.0)
[2021-12-25 06:44] LABS: ALANINE AMINOTRANSFERASE 14 Units/L (12-78); ALBUMIN 2.3 g/dL (3.4-5.0); ALKALINE PHOSPHATASE 107 Units/L (46-116); ASPARTATE AMINO TRANSFERASE 12 Units/L (15-37); BLOOD UREA NITROGEN 7 mg/dL (7-18); CALCIUM 8.2 mg/dL (8.5-10.1); CARBON DIOXIDE 24.8 mmol/L (21-32); CHLORIDE 101 mmol/L (98-107); COR CA(FOR HYPOALB) 9.6 mg/dL (8.5-10.1); COR NA(FOR HYPERGLY) 133 mmol/L (136-145); MAGNESIUM 1.8 mg/dL (1.7-2.9); SODIUM 131 mmol/L (136-145); eGFR NON BLACK RACES > 60 (>60)
[2021-12-25] MEDS: NovoLIN R (or HumuLIN R) SC PRN ×3 (06:54→21:13)
[2021-12-25] MEDS: VANCOMYCIN IV *PREMIX 1 G/200 ML BAG 1 G/200 ML PIGGYBACK IV SCH ×3 (09:00→21:53)
[2021-12-25] MEDS: [UNRECOGNIZED DRUG - OTHER] PO SCH (09:31)
[2021-12-25] MEDS: ZESTRIL TAB 5 MG PO SCH (10:00)
[2021-12-25] MEDS: VSL#3 PO SCH (10:00)
[2021-12-25] MEDS: LOVENOX INJ 40 MG SYR SC SCH (10:00)
[2021-12-25] MEDS: INDERAL TAB 10 MG PO SCH ×2 (10:28→21:53)
[2021-12-25] MEDS: INVanz INJ 1 GRAM VIAL 1 G in NS 100 ML IV 100 ML IV SCH (19:56)
[2021-12-26] MEDS: MORPHINE SULFATE INJ 2 MG INJ IVP PRN ×2 (00:12→09:40)
[2021-12-26] MEDS: TORADOL 30 MG VIAL IVP PRN ×2 (02:19→11:31)
[2021-12-26] MEDS: NS 1,000 ML IV 1,000 ML IV SCH ×2 (03:00→11:11)
[2021-12-26] MEDS ORDERED: PHARMACY COMMENT IV ONE (05:30)
[2021-12-26 06:21] LABS: BASOPHILS # (AUTO) 0.1 X10^3/uL (0.0-0.1); EOSINOPHILS # (AUTO) 0.2 x10^3/uL (0.0-0.2); HEMATOCRIT 34.6 % (42.0-54.0); HEMOGLOBIN 12.2 g/dL (13.5-18.0); LYMPHOCYTES % (AUTO) 21.6 % (21.0-51.0); MEAN CORPUSCULAR HEMOGLOBIN 28.9 pg (27.0-34.0); MEAN CORPUSCULAR HGB CONC 35.2 g/dL (33.0-35.0); MEAN CORPUSCULAR VOLUME 82.1 fL (80.0-100.0); MEAN PLATELET VOLUME 7.3 fL (7.4-11.0); MONOCYTES % (AUTO) 10.3 % (0.0-13.0); NEUTROPHILS # (AUTO) 6.1 x10^3/uL (2.2-4.8); NEUTROPHILS % (AUTO) 65.1 % (42.0-75.0); RED BLOOD COUNT 4.22 X10^6/uL (4.7-6.0); WHITE BLOOD COUNT 9.4 X10^3/uL (3.6-10.0)
[2021-12-26 06:30] LABS: ALANINE AMINOTRANSFERASE 19 Units/L (12-78); ALBUMIN 2.4 g/dL (3.4-5.0); ALKALINE PHOSPHATASE 113 Units/L (46-116); ASPARTATE AMINO TRANSFERASE 17 Units/L (15-37); BLOOD UREA NITROGEN 9 mg/dL (7-18); CALCIUM 8.2 mg/dL (8.5-10.1); CARBON DIOXIDE 24.7 mmol/L (21-32); CHLORIDE 102 mmol/L (98-107); COR CA(FOR HYPOALB) 9.5 mg/dL (8.5-10.1); COR NA(FOR HYPERGLY) 134 mmol/L (136-145); CREATININE 0.49 mg/dL (0.70-1.30); SODIUM 132 mmol/L (136-145); TOTAL PROTEIN 6.2 g/dL (6.4-8.2); eGFR NON BLACK RACES > 60 (>60)
[2021-12-26 06:38] LABS: CREATININE 0.49 mg/dL (0.70-1.30); VANCOMYCIN,TROUGH 10.1 ug/mL (15-20)
[2021-12-26] MEDS: PERCOCET TAB 5/325 MG PO PRN (06:39)
[2021-12-26] MEDS: VANCOMYCIN IV *PREMIX 1 G/200 ML BAG 1 G/200 ML PIGGYBACK IV SCH (07:00)
[2021-12-26] MEDS: VSL#3 PO SCH (09:39)
[2021-12-26] MEDS: INDERAL TAB 10 MG PO SCH (09:39)
[2021-12-26] MEDS: LOVENOX INJ 40 MG SYR SC SCH (09:40)
[2021-12-26] MEDS: ZESTRIL TAB 5 MG PO SCH (09:40)
[2021-12-26] MEDS: NovoLIN R (or HumuLIN R) SC PRN (11:51)
[2021-12-26 12:34] VITALS: BP 130/80
--- NOTE | 2022-02-04 22:13 | PCM.DCPLAN ---
Discharge Plan - Discharge Plan Hospital Course: Admit date 12/22/21 Discharge date 12/26/21 DOS 12/26/21 Admit diagnosis(1) Cellulitis of left hand (2) Cellulitis of forearm, left (3) Left arm pain (4) Hypertension (5) Diabetes (6) COPD (chronic obstructive pulmonary disease) Discharge diagnosis Same Hospital Course Patient is a 51 year old white male who was admitted due to cellulitis left forearm from IV drug use. 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 Patient states he is a retirement IV drug user. Patient has had cellulitis in the past due to IV drug use. History of MRSA. Patient reports severe pain to arm with swelling and fever. 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 PMH COPD, DM, HTN. Patient states he plans to get back on suboxone once discharged. Patient was treated with IV abx. Area improved as well as patient symptoms over the course of hospitalization. Blood cultures were negative. Patient was discharged home on po antibiotics and instructed to follow up with pcp in 1 week.See imaging and labs, and EMAR for details. Discharge time spent >35 mins. Disposition: 01 HOME, SELF-CARE Condition: Stable Health Concerns: Post Hospitalization: new medications and changes needed to prevent readmission or further decline. Pt educated and given instructions on all concerns. Care Plan Goals: Problem: Infection Goal: Temperature within normal limits. Resolved infection. Instructions: Follow provided instructions. Follow up with primary physician as directed. Contact primary care physician or report to the closest Emergency Room if condition worsens. Plan of Treatment: Continue with present treatment and follow up plan. Pt is to keep follow up appointment as instructed and take medications as ordered. Prescriptions: Continued alogliptin-metformin [Kazano] 12.5-500 mg Tablet 1 tab PO BID lisinopril 5 mg Tablet 5 mg PO DAILY propranolol 10 mg Tablet 2.5 mg PO BID Trulicity 0.75 mg/0.5 mL Pen Injector 0.75 mg SUBCUT QWEEK - Follow ups/Referrals Follow ups/Referrals: Sandra Vines [Primary Care Provider] - 1 WEEK - Instructions Instructions: Chronic Obstructive Pulmonary Disease, Feed-qe-Roal, Type 2 Diabetes Mellitus, Self-Care, Adult, [id number], Cellulitis, Adult, [id number], Hypertension, Adult, [id number], Hyponatremia, [id number], Finding Treatment for Addiction Forms: Precautions for COVID19, [facility], Patient Portal, Social Distancing Print Language: ARGENTINE
--- NOTE | 2022-02-04 22:20 | PCM.PROG ---
Progress Note - Progress Note for Day of Date of Exam: 12/24/21 - Subjective Subjective: Patient is a 51 year old male who was admitted as per HPI. Patient continues to report pain to forearm. Minimal improvement in cellulitis of left arm. No open areas, no drainage. Erythema, warmth, and swelling noted. No new concerns or issues. - Past Medical Family Social History Past Med/Fam/Surg Hx: No changes since H&P Allergies: Allergies Penicillins Allergy (Verified 12/22/21 17:12) - Review of Systems ROS: No change since H&P - Vital Signs and I&O's Vital Signs: Temperature 98.5 F Pulse Rate [Brachial] 77 Pulse Rate [Right Brachial] 88 Pulse Rate 102 Respiratory Rate 20 Blood Pressure [Left Arm] 130/80 Blood Pressure [Right Arm] 133/78 Blood Pressure 130/77 O2 Sat by Pulse Oximetry 98 - Physical Exam Oriented: Normal, Time, Person, Place Eyes: Normal Ear: Normal Nose: Normal Throat: Normal Respiratory: Normal Cardiovascular: Normal : Normal Auscultation: Bowel Sounds: Normal Palpation: Normal Tenderness: Normal Skin: Red, Tender, Hot, Other (Left upper arm extensive cellulitis) Musculoskeletal: Normal Psychiatric: Anxiety Mood Description: Anxious Affect: Anxious Speech Pattern: Clear, Appropriate - Laboratory and Diagnostics Result Diagrams: 12/26/21 05:42 12/26/21 05:42 Labs: 12/22/21 19:52 Blood Blood Culture - Final 12/22/21 19:38 Blood Blood Culture - Final Laboratory WBC 9.4 X10^3/uL (3.6-10.0) 12/26/21 05:42 RBC 4.22 X10^6/uL (4.7-6.0) L 12/26/21 05:42 Hgb 12.2 g/dL (13.5-18.0) L 12/26/21 05:42 Hct 34.6 % (42.0-54.0) L 12/26/21 05:42 MCV 82.1 fL (80.0-100.0) 12/26/21 05:42 MCH 28.9 pg (27.0-34.0) 12/26/21 05:42 MCHC 35.2 g/dL (33.0-35.0) H 12/26/21 05:42 RDW 15.0 % (11.6-16.5) 12/26/21 05:42 Plt Count 331 X10^3/uL (150.0-450.0) 12/26/21 05:42 MPV 7.3 fL (7.4-11.0) L 12/26/21 05:42 Neut % (Auto) 65.1 % (42.0-75.0) 12/26/21 05:42 Lymph % (Auto) 21.6 % (21.0-51.0) 12/26/21 05:42 [place] % (Auto) 10.3 % (0.0-13.0) 12/26/21 05:42 Eos % (Auto) 2.0 % (0.9-2.9) 12/26/21 05:42 Baso % (Auto) 1.0 % (0.2-1.0) 12/26/21 05:42 Neut # (Auto) 6.1 x10^3/uL (2.2-4.8) H 12/26/21 05:42 Lymph # (Auto) 2.0 X10^3/uL (1.3-2.9) 12/26/21 05:42 [place] # (Auto) 1.0 x10^3/uL (0.3-0.8) H 12/26/21 05:42 Eos # (Auto) 0.2 x10^3/uL (0.0-0.2) 12/26/21 05:42 Baso # (Auto) 0.1 X10^3/uL (0.0-0.1) 12/26/21 05:42 Absolute Nucleated RBC 0.0 /100WBC 12/26/21 05:42 ESR 58 MM/HOUR (0-15) H 12/22/21 19:38 Sodium 132 mmol/L (136-145) L 12/26/21 05:42 Corrected Sodium 134 mmol/L (136-145) L 12/26/21 05:42 Potassium 3.7 mmol/L (3.5-5.1) 12/26/21 05:42 Chloride 102 mmol/L (98-107) 12/26/21 05:42 Carbon Dioxide 24.7 mmol/L (21-32) 12/26/21 05:42 BUN 9 mg/dL (7-18) 12/26/21 05:42 Creatinine 0.49 mg/dL (0.70-1.30) L 12/26/21 05:42 Creatinine 0.49 mg/dL (0.70-1.30) L 12/26/21 05:42 Est GFR (MDRD) Af Amer > 60 (>60) 12/26/21 05:42 Est GFR (MDRD) Non-Af > 60 (>60) 12/26/21 05:42 Glucose 170 mg/dL (65-99) H 12/26/21 05:42 Calcium 8.2 mg/dL (8.5-10.1) L 12/26/21 05:42 Corrected Calcium 9.5 mg/dL (8.5-10.1) 12/26/21 05:42 Magnesium 1.8 mg/dL (1.7-2.9) 12/25/21 06:20 Total Bilirubin 0.20 mg/dL (0.2-1.0) 12/26/21 05:42 AST 17 Units/L (15-37) 12/26/21 05:42 ALT 19 Units/L (12-78) 12/26/21 05:42 Alkaline Phosphatase 113 Units/L (46-116) 12/26/21 05:42 C-Reactive Protein 126.60 mg/L (0-3.0) H 12/22/21 19:38 Total Protein 6.2 g/dL (6.4-8.2) L 12/26/21 05:42 Albumin 2.4 g/dL (3.4-5.0) L 12/26/21 05:42 Globulin 3.8 g/dL (2.5-4.5) 12/26/21 05:42 Albumin/Globulin Ratio 0.6 Ratio (1.1-2.1) L 12/26/21 05:42 Specimen Type Random urine 12/22/21 21:01 Urine Color Yellow (YELLOW) 12/22/21 21:01 Urine Appearance Clear (CLEAR) 12/22/21 21:01 Urine pH 8.0 (5.0 - 8.0) 12/22/21 21:01 Ur Specific [place] 1.015 (1.000-1.030) 12/22/21 21:01 Urine Protein Negative (NEGATIVE) 12/22/21 21:01 Urine Glucose (UA) 4+ (NEGATIVE) 12/22/21 21: Urine Ketones 1+ (NEGATIVE) 12/22/21 21: Urine Blood Negative (NEGATIVE) 12/22/21 21: Urine Nitrite Negative (NEGATIVE) 12/22/21 21: Urine Bilirubin Negative (NEGATIVE) 12/22/21 21:01 Urine Urobilinogen Normal (NORMAL) 12/22/21 21:01 Ur Leukocyte Esterase Negative (NEGATIVE) 12/22/21 21: Vancomycin Trough 10.1 ug/mL (15-20) L 12/26/21 05:42 Urine Opiates Screen Positive (NEG=<300) 12/22/21 21: Urine Methadone Screen Negative (NEG=<300) 12/22/21 21: Ur Barbiturates Screen Negative (NEG=<200) 12/22/21 21:01 Ur Phencyclidine Scrn Negative (NEG=<25) 12/22/21 21: Ur Amphetamines Screen Negative (NEG=<1000) 12/22/21 21: U Benzodiazepines Scrn Negative (NEG=<200) 12/22/21 21: Urine Cocaine Screen Negative (NEG=<300) 12/22/21 21: U Marijuana (THC) Screen Negative (NEG=<50) 12/22/21 21:01 - Plan (1) Cellulitis of left hand Status: Acute (2) Cellulitis of forearm, left Status: Acute Plan: IV antibiotics. Pain control. Repeat labs in am. Cultures pending (3) Left arm pain Status: Acute (4) Hypertension Status: Chronic (5) Diabetes Status: Chronic Qualifiers: Diabetes mellitus type: type 2 (6) COPD (chronic obstructive pulmonary disease) Status: Chronic
== END 2021-12-26 13:30 | disposition home or self-care (01) | DRG 603 ==
LOC: ER 16:58 → MED/SURG 16:58 → OBSVTOIN 12-23 00:13 → MED/SURG 12-23 00:45
PROVIDERS: ADMIT Internal Medicine; ATTEND Internal Medicine

== ENCOUNTER 2021-12-27 18:49 | Inpatient (IN) ==
--- NOTE | 2021-12-27 19:21 | DR.EXTPAIN ---
HPI Time seen Time Seen by Provider: 12/27/21 19:19 PCP Primary Care Physician: JUN Complaint/Symptoms Chief Complaint Doctor Comments: 51 y/o male, presents with left arm cellulitis. Was d/c'd from the hospital yesterday. Now having worsening swelling, redness of the left arm today. Running low grade temp, had some chills. Denies recent injury. No nausea, vomiting or diarrhea. Went to fill antibiotic today, pharmacist told him to return to the ER. Pain is constant, dull, does not radiate. Worse with movement, palpation. Nothing makes it better. Chief Complaint:: PT AMBULATORY IN ED WITH C/O CELLULITIS TO LEFT ARM. PT DISCHARGED FROM HOSPITAL YESTERDAY ON PO ANTIBIOTICS. PT STATES ARM WAS BETTER WHEN HE WAS DISCHARGED BUT HAS GOTTEN WORSE SINCE THEN. COVID-19 Coronavirus risk:travel/contact w/high risk person: No Has patient experienced Coronavirus symptoms: No Nurses notes reviewed Nurses Notes Review: Yes Source History Provided: Patient Mode of arrival Mode of Arrival: Ambulatory Timing Onset of Chief Complaint: 12/21/21 PMH PMH Past Medical History: Yes Past Medical History: COPD, Diabetes and Hypertension Past Medical History Comment: IV DRUG USER Past Surgical History: Yes Surgical History: Other Past Surgical History Comment: MRSA Family History History of Family Medical Conditions: Yes Family Medical History: Diabetes Mellitus Social History Have you used tobacco products in the last 12 months: Yes Type of Tobacco Use: Cigarettes Does any household member use tobacco: No Alcohol Use: None Do you use any recreational Drugs:: Yes (HEROIN AND METH) Lives With: Dad Lives Where: Home Travel Risk Coronavirus risk:travel/contact w/high risk person: No Has patient experienced Coronavirus symptoms: No Infectious screening In the last 2 months have you had wt loss of >10#?: NO Have you had fever, night sweats or hemotysis?: No Have you traveled outside the country in the last 6 months?: No Isolation: Standard ROS Review of Systems Constitutional: Chills, Fever and Weakness Eyes: No Symptoms Reported ENTM: No Symptoms Reported Respiratoy: No Symptoms Reported Cardiovascular: No Symptoms Reported Gastrointestinal/Abdominal: No Symptoms Reported Genitourinary: No Symptoms Reported Neurological: No Symptoms Reported Musculoskeletal: Left and Forearm Integumentary: Rash (left forearm erythema) Hematologic/Lymphatic: No Symptoms Reported Psychiatric: No Symptoms Reported All Other Systems: Reviewed and Negative PE Vital Signs Vitals: Temperature 99.0 F Pulse Rate 112 Respiratory Rate 20 Blood Pressure [Left Arm] 130/80 Blood Pressure 139/86 O2 Sat by Pulse Oximetry 100 General Limitations: No Limitations General Appearance: Alert and In No Apparent Distress Eyes Eye exam: PERRL and EOMI ENT ENT Exam: Normal Exam and Mucous Membranes Moist Neck Neck Exam: Normal Inspection and Full ROM Chest Chest Inspection: Normal Inspection Respiratory Respiratory Exam: Normal Lung Sounds Bilat; negative Accessory Muscle Use and Respiratory Distress Respiratory Exam: Bilateral: Clear to Auscultation Cardiovascular Cardiovascular Exam: Regular Rate, Normal Rhythm, Tachycardia and Normal Heart Sounds Abdominal Exam Abdominal Exam: Normal Inspection and Soft; negative Tenderness Upper Extremities Forearm Exam: Swelling (left forearm, with erythema, tenderness, induration. Distal NV intact. ) Neurological Neurological Exam: Alert, Oriented X3 and CN II-XII Intact; negative Motor Sensory Deficit Psychiatric Psychiatric Exam: Normal Affect Skin Skin Exam: Warm and Dry MDM Differential Diagnosis Differential Diagnosis: Other (cellulitis, abscess) COURSE Treatment Treatment: 51 y/o male, d/c'd form [facility] yesterday, presents with worsening left forearm cellulitis. W/u initiated. Given IV fluids, IV clindamycin and oral doxycycline. 2104 - labs show elevated glucose, 456. Pt given regular insulin, 8 U IV x 1. No gas formation on x-ray. Will re admit pt for IV/PO antibiotic treatment of his worsening left forearm cellulitis. Discussed with covering MD, Dr Lozada, accepts the admission. ROR Labs Reviewed Laboratory Results Reviewed?: Yes Result Diagrams: 12/27/21 19:48 12/27/21 19:48 Laboratory: WBC 12.9 X10^3/uL (3.6-10.0) H 12/27/21 19:48 RBC 4.45 X10^6/uL (4.7-6.0) L 12/27/21 19:48 Hgb 12.8 g/dL (13.5-18.0) L 12/27/21 19:48 Hct 37.7 % (42.0-54.0) L 12/27/21 19:48 MCV 84.8 fL (80.0-100.0) 12/27/21 19:48 MCH 28.8 pg (27.0-34.0) 12/27/21 19:48 MCHC 33.9 g/dL (33.0-35.0) 12/27/21 19:48 RDW 14.8 % (11.6-16.5) 12/27/21 19:48 Plt Count 411 X10^3/uL (150.0-450.0) 12/27/21 19:48 MPV 7.0 fL (7.4-11.0) L 12/27/21 19:48 Neut % (Auto) 82.3 % (42.0-75.0) H 12/27/21 19:48 Lymph % (Auto) 7.8 % (21.0-51.0) L 12/27/21 19:48 [place] % (Auto) 6.2 % (0.0-13.0) 12/27/21 19:48 Eos % (Auto) 0.6 % (0.9-2.9) L 12/27/21 19:48 Baso % (Auto) 3.1 % (0.2-1.0) H 12/27/21 19:48 Neut # (Auto) 10.6 x10^3/uL (2.2-4.8) H 12/27/21 19:48 Lymph # (Auto) 1.0 X10^3/uL (1.3-2.9) L 12/27/21 19:48 [place] # (Auto) 0.8 x10^3/uL (0.3-0.8) 12/27/21 19:48 Eos # (Auto) 0.1 x10^3/uL (0.0-0.2) 12/27/21 19:48 Baso # (Auto) 0.4 X10^3/uL (0.0-0.1) H 12/27/21 19:48 Absolute Nucleated RBC 0.0 /100WBC 12/27/21 19:48 Sodium 124 mmol/L (136-145) L* 12/27/21 19:48 Corrected Sodium 133 mmol/L (136-145) L 12/27/21 19:48 Potassium 4.1 mmol/L (3.5-5.1) 12/27/21 19:48 Chloride 91 mmol/L (98-107) L 12/27/21 19:48 Carbon Dioxide 26.7 mmol/L (21-32) 12/27/21 19:48 BUN 14 mg/dL (7-18) 12/27/21 19:48 Creatinine 0.81 mg/dL (0.70-1.30) 12/27/21 19:48 Est GFR (MDRD) Af Amer > 60 (>60) 12/27/21 19:48 Est GFR (MDRD) Non-Af > 60 (>60) 12/27/21 19:48 Glucose 456 mg/dL (65-99) H 12/27/21 19:48 Lactic Acid 2.3 mmol/L (0.4-2.0) H 12/27/21 19:48 Calcium 9.2 mg/dL (8.5-10.1) 12/27/21 19:48 Corrected Calcium 10.1 mg/dL (8.5-10.1) 12/27/21 19:48 Total Bilirubin 0.30 mg/dL (0.2-1.0) 12/27/21 19:48 AST 14 Units/L (15-37) L 12/27/21 19:48 ALT 21 Units/L (12-78) 12/27/21 19:48 Alkaline Phosphatase 142 Units/L (46-116) H 12/27/21 19:48 Total Protein 7.5 g/dL (6.4-8.2) 12/27/21 19:48 Albumin 2.9 g/dL (3.4-5.0) L 12/27/21 19:48 Globulin 4.6 g/dL (2.5-4.5) H 12/27/21 19:48 Albumin/Globulin Ratio 0.6 Ratio (1.1-2.1) L 12/27/21 19:48 Specimen Type Random urine 12/27/21 20:33 Urine Color Pale yellow (YELLOW) 12/27/21 20:33 Urine Appearance Clear (CLEAR) 12/27/21 20:33 Urine pH 6.0 (5.0 - 8.0) 12/27/21 20:33 Ur Specific [place] 1.015 (1.000-1.030) 12/27/21 20:33 Urine Protein Negative (NEGATIVE) 12/27/21 20:33 Urine Glucose (UA) 4+ (NEGATIVE) 12/27/21 20:33 Urine Ketones Negative (NEGATIVE) 12/27/21 20:33 Urine Blood Negative (NEGATIVE) 12/27/21 20:33 Urine Nitrite Negative (NEGATIVE) 12/27/21 20: Urine Bilirubin Negative (NEGATIVE) 12/27/21 20:33 Urine Urobilinogen Normal (NORMAL) 12/27/21 20:33 Ur Leukocyte Esterase Negative (NEGATIVE) 12/27/21 20:33 Urine Opiates Screen Positive (NEG=<300) 12/27/21 20: Urine Methadone Screen Negative (NEG=<300) 12/27/21 20:33 Ur Barbiturates Screen Negative (NEG=<200) 12/27/21 20: Ur Phencyclidine Scrn Negative (NEG=<25) 12/27/21 20: Ur Amphetamines Screen Negative (NEG=<1000) 12/27/21 20: U Benzodiazepines Scrn Negative (NEG=<200) 12/27/21 20: Urine Cocaine Screen Negative (NEG=<300) 12/27/21 20: U Marijuana (THC) Screen Negative (NEG=<50) 12/27/21 20:33 Other Results Comments: Elevated glucose, with compensatory low sodium XRAY XRAY Interpreted by: Self X-ray Results: Forearm - no gas formation, no obvious FB. Opioid Opioid Risk Tool Age (Shay box if 16-45): No History of Preadolescent Sexual Abuse: No Total: 0 Total Score Risk Category: Low Risk Copyright: Luca NEELY predicting aberrant behaviors Diagnosis Discharge Problem: Cellulitis of forearm, left
[2021-12-27] MEDS ORDERED: NS 1,000 ML IV 1,000 ML IV ONE (19:24)
[2021-12-27] MEDS ORDERED: CLEOCIN 600 MG IV PREMIX 600 MG/50 ML BAG IV ONE ×2 (19:30→19:51)
[2021-12-27] MEDS ORDERED: VIBRAMYCIN PO ONE ×2 (19:30→19:51)
[2021-12-27] MEDS ORDERED: NS 1,000 ML IV 1,000 ML ONE (19:51)
[2021-12-27 20:25] LABS: BASOPHILS # (AUTO) 0.4 X10^3/uL (0.0-0.1); BASOPHILS % (AUTO) 3.1 % (0.2-1.0); EOSINOPHILS # (AUTO) 0.1 x10^3/uL (0.0-0.2); EOSINOPHILS % (AUTO) 0.6 % (0.9-2.9); HEMATOCRIT 37.7 % (42.0-54.0); HEMOGLOBIN 12.8 g/dL (13.5-18.0); LYMPHOCYTES % (AUTO) 7.8 % (21.0-51.0); MEAN CORPUSCULAR HEMOGLOBIN 28.8 pg (27.0-34.0); MEAN CORPUSCULAR HGB CONC 33.9 g/dL (33.0-35.0); MEAN CORPUSCULAR VOLUME 84.8 fL (80.0-100.0); MONOCYTES # (AUTO) 0.8 x10^3/uL (0.3-0.8); MONOCYTES % (AUTO) 6.2 % (0.0-13.0); NEUTROPHILS # (AUTO) 10.6 x10^3/uL (2.2-4.8); NEUTROPHILS % (AUTO) 82.3 % (42.0-75.0); RED BLOOD COUNT 4.45 X10^6/uL (4.7-6.0); RED CELL DISTRIBUTION WIDTH 14.8 % (11.6-16.5); WHITE BLOOD COUNT 12.9 X10^3/uL (3.6-10.0)
[2021-12-27 20:34] LABS: ALANINE AMINOTRANSFERASE 21 Units/L (12-78); ALBUMIN 2.9 g/dL (3.4-5.0); ALKALINE PHOSPHATASE 142 Units/L (46-116); ASPARTATE AMINO TRANSFERASE 14 Units/L (15-37); BLOOD UREA NITROGEN 14 mg/dL (7-18); CALCIUM 9.2 mg/dL (8.5-10.1); CARBON DIOXIDE 26.7 mmol/L (21-32); CHLORIDE 91 mmol/L (98-107); COR CA(FOR HYPOALB) 10.1 mg/dL (8.5-10.1); COR NA(FOR HYPERGLY) 133 mmol/L (136-145); CREATININE 0.81 mg/dL (0.70-1.30); TOTAL PROTEIN 7.5 g/dL (6.4-8.2); eGFR NON BLACK RACES > 60 (>60)
[2021-12-27 20:36] LABS: SODIUM 124 mmol/L (136-145)
[2021-12-27] MEDS ORDERED: NovoLIN R (or HumuLIN R) IV ONE (20:38)
[2021-12-27 20:41] LABS: LACTIC ACID 2.3 mmol/L (0.4-2.0)
[2021-12-27 20:47] LABS: BILIRUBIN,URINE NEGATIVE (NEGATIVE); BLOOD/HEMOGLOBIN,URINE NEGATIVE (NEGATIVE); GLUCOSE, URINE 4+ (NEGATIVE); KETONES,URINE NEGATIVE (NEGATIVE); LEUKOCYTE ESTERASE ,URINE NEGATIVE (NEGATIVE); NITRITES,URINE NEGATIVE (NEGATIVE); PROTEIN,URINE NEGATIVE (NEGATIVE); UROBILINOGEN,URINE NORMAL (NORMAL)
[2021-12-27] MEDS ORDERED: NovoLIN R (or HumuLIN R) ONE (21:00)
[2021-12-27 21:01] LABS: APPEARANCE,URINE CLEAR (CLEAR); COLOR,URINE PALE YELLOW (YELLOW)
--- NOTE | 2021-12-27 21:28 | RAD ---
STUDY: FOREARM, LEFTCOMPARISON: NoneHISTORY: + CELLULITIS, R/O GAS FORMATIONFINDINGS:There is no evidence of fracture or joint dislocation.There is no evidence of an embedded radiopaque foreign body.IMPRESSION:There is no evidence of fracture or joint dislocation.Electronically signed by: Travis Allen (Dec 27, 2021 21:28:02)
[2021-12-27 22:01] VITALS: BMI 22.8
[2021-12-27] MEDS: NS 1,000 ML IV 1,000 ML IV SCH (23:14)
[2021-12-27] MEDS: MORPHINE SULFATE INJ 4 MG IVP PRN (23:14)
[2021-12-27] MEDS: CLEOCIN 600 MG IV PREMIX 600 MG/50 ML BAG IV SCH (23:44)
[2021-12-28] MEDS: TORADOL 30 MG VIAL IVP PRN ×4 (01:19→23:06)
[2021-12-28] MEDS: NS 1,000 ML IV 1,000 ML IV SCH ×5 (05:37→20:59)
[2021-12-28] MEDS: CLEOCIN 600 MG IV PREMIX 600 MG/50 ML BAG IV SCH ×3 (05:54→20:59)
[2021-12-28] MEDS: NovoLIN R (or HumuLIN R) SC PRN ×4 (05:55→20:47)
[2021-12-28] MEDS: MORPHINE SULFATE INJ 4 MG IVP PRN ×5 (05:56→23:45)
[2021-12-28 06:50] LABS: ALANINE AMINOTRANSFERASE 21 Units/L (12-78); ALBUMIN 2.4 g/dL (3.4-5.0); ALKALINE PHOSPHATASE 104 Units/L (46-116); ASPARTATE AMINO TRANSFERASE 25 Units/L (15-37); BLOOD UREA NITROGEN 11 mg/dL (7-18); CALCIUM 8.4 mg/dL (8.5-10.1); CARBON DIOXIDE 22.6 mmol/L (21-32); CHLORIDE 98 mmol/L (98-107); COR CA(FOR HYPOALB) 9.7 mg/dL (8.5-10.1); COR NA(FOR HYPERGLY) 134 mmol/L (136-145); CREATININE 0.53 mg/dL (0.70-1.30); SODIUM 130 mmol/L (136-145); TOTAL PROTEIN 6.5 g/dL (6.4-8.2); eGFR NON BLACK RACES > 60 (>60)
[2021-12-28 06:52] LABS: BASOPHILS # (AUTO) 0.2 X10^3/uL (0.0-0.1); BASOPHILS % (AUTO) 1.3 % (0.2-1.0); EOSINOPHILS # (AUTO) 0.1 x10^3/uL (0.0-0.2); EOSINOPHILS % (AUTO) 1.2 % (0.9-2.9); HEMATOCRIT 34.4 % (42.0-54.0); HEMOGLOBIN 11.8 g/dL (13.5-18.0); LYMPHOCYTES # (AUTO) 2.2 X10^3/uL (1.3-2.9); LYMPHOCYTES % (AUTO) 18.2 % (21.0-51.0); MEAN CORPUSCULAR HEMOGLOBIN 28.8 pg (27.0-34.0); MEAN CORPUSCULAR HGB CONC 34.4 g/dL (33.0-35.0); MEAN CORPUSCULAR VOLUME 83.7 fL (80.0-100.0); MONOCYTES # (AUTO) 1.4 x10^3/uL (0.3-0.8); MONOCYTES % (AUTO) 11.4 % (0.0-13.0); NEUTROPHILS # (AUTO) 8.3 x10^3/uL (2.2-4.8); NEUTROPHILS % (AUTO) 67.9 % (42.0-75.0); RED BLOOD COUNT 4.12 X10^6/uL (4.7-6.0); WHITE BLOOD COUNT 12.2 X10^3/uL (3.6-10.0)
[2021-12-28] MEDS: INDERAL TAB 10 MG PO SCH ×2 (09:31→20:57)
[2021-12-28] MEDS: VIBRAMYCIN PO SCH ×2 (09:31→20:58)
[2021-12-28] MEDS: ZESTRIL TAB 5 MG PO SCH (09:31)
[2021-12-28] MEDS ORDERED: ZOFRAN INJ 4 MG VIAL IVP PRN (10:22)
[2021-12-28] MEDS ORDERED: XYLOCAINE 1 % (PLAIN) ONE (10:41)
[2021-12-28] MEDS: SNACK - Diabetic Appropriate PO SCH (20:46)
--- NOTE | 2021-12-28 21:25 | DR.H&P ---
H&P History & Physical for Day of: H&P Date: 12/28/21 Chief Complaint Chief Complaint: Left distal forearm swelling, pain and infection. Allergies Allergies Allergy/AdvReac Type Severity Reaction Status Date / Time Penicillins Allergy Verified 12/22/21 17:12 History of Present Illness History of Present Illness: This is a 51-year-old white male who presented to [facility] emergency department one day after being discharged from the hospital for inpatient treatment of left distal forearm cellulitis. He went to [facility] his antibiotics on Wednesday but the pharmacist told him the way it looked he needed to come back to the emergency department for further medical treatment. He reports that he is pain is worse with moving his wrist and arm. He reports having some fever and elevated blood sugars as well. The infection started some time last week. Past Medical History Past Medical History: COPD, Diabetes and Hypertension Past Surgical History Surgical History: Other Family History Family Medical History: Diabetes Mellitus, Cancer, [place] and Hypertension Social History Does patient currently use any type of tobacco product: Yes Have you used tobacco products in the last 12 months: Yes Type of Tobacco Use: Cigarettes How many years tobacco product used: 30 Does any household member use tobacco: No Alcohol Use: None Drug Use: Other Medications Home Medications: Penicillins Allergy (Verified 12/22/21 17:12) Labs Result Diagrams: 12/28/21 05:49 12/28/21 05:49 Labs: 12/28/21 10:59 Arm - Abscess Wound Gram Stain - Final Laboratory WBC 12.2 X10^3/uL (3.6-10.0) H 12/28/21 05:49 RBC 4.12 X10^6/uL (4.7-6.0) L 12/28/21 05:49 Hgb 11.8 g/dL (13.5-18.0) L 12/28/21 05:49 Hct 34.4 % (42.0-54.0) L 12/28/21 05:49 MCV 83.7 fL (80.0-100.0) 12/28/21 05:49 MCH 28.8 pg (27.0-34.0) 12/28/21 05:49 MCHC 34.4 g/dL (33.0-35.0) 12/28/21 05:49 RDW 15.0 % (11.6-16.5) 12/28/21 05:49 Plt Count 226 X10^3/uL (150.0-450.0) 12/28/21 05:49 MPV 8.0 fL (7.4-11.0) 12/28/21 05:49 Neut % (Auto) 67.9 % (42.0-75.0) 12/28/21 05:49 Lymph % (Auto) 18.2 % (21.0-51.0) L 12/28/21 05:49 [place] % (Auto) 11.4 % (0.0-13.0) 12/28/21 05:49 Eos % (Auto) 1.2 % (0.9-2.9) 12/28/21 05:49 Baso % (Auto) 1.3 % (0.2-1.0) H 12/28/21 05:49 Neut # (Auto) 8.3 x10^3/uL (2.2-4.8) H 12/28/21 05:49 Lymph # (Auto) 2.2 X10^3/uL (1.3-2.9) 12/28/21 05:49 [place] # (Auto) 1.4 x10^3/uL (0.3-0.8) H 12/28/21 05:49 Eos # (Auto) 0.1 x10^3/uL (0.0-0.2) 12/28/21 05:49 Baso # (Auto) 0.2 X10^3/uL (0.0-0.1) H 12/28/21 05:49 Absolute Nucleated RBC 0.0 /100WBC 12/28/21 05:49 Sodium 130 mmol/L (136-145) L 12/28/21 05:49 Corrected Sodium 134 mmol/L (136-145) L 12/28/21 05:49 Potassium 4.2 mmol/L (3.5-5.1) 12/28/21 05:49 Chloride 98 mmol/L (98-107) 12/28/21 05:49 Carbon Dioxide 22.6 mmol/L (21-32) 12/28/21 05:49 BUN 11 mg/dL (7-18) 12/28/21 05:49 Creatinine 0.53 mg/dL (0.70-1.30) L 12/28/21 05:49 Est GFR (MDRD) Af Amer > 60 (>60) 12/28/21 05:49 Est GFR (MDRD) Non-Af > 60 (>60) 12/28/21 05:49 Glucose 286 mg/dL (65-99) H 12/28/21 05:49 Lactic Acid 2.3 mmol/L (0.4-2.0) H 12/27/21 19:48 Calcium 8.4 mg/dL (8.5-10.1) L 12/28/21 05:49 Corrected Calcium 9.7 mg/dL (8.5-10.1) 12/28/21 05:49 Total Bilirubin 0.50 mg/dL (0.2-1.0) 12/28/21 05:49 AST 25 Units/L (15-37) 12/28/21 05:49 ALT 21 Units/L (12-78) 12/28/21 05:49 Alkaline Phosphatase 104 Units/L (46-116) 12/28/21 05:49 Total Protein 6.5 g/dL (6.4-8.2) 12/28/21 05:49 Albumin 2.4 g/dL (3.4-5.0) L 12/28/21 05:49 Globulin 4.1 g/dL (2.5-4.5) 12/28/21 05:49 Albumin/Globulin Ratio 0.6 Ratio (1.1-2.1) L 12/28/21 05:49 Specimen Type Random urine 12/27/21 20:33 Urine Color Pale yellow (YELLOW) 12/27/21 20:33 Urine Appearance Clear (CLEAR) 12/27/21 20:33 Urine pH 6.0 (5.0 - 8.0) 12/27/21 20:33 Ur Specific [place] 1.015 (1.000-1.030) 12/27/21 20:33 Urine Protein Negative (NEGATIVE) 12/27/21 20:33 Urine Glucose (UA) 4+ (NEGATIVE) 12/27/21 20:33 Urine Ketones Negative (NEGATIVE) 12/27/21 20:33 Urine Blood Negative (NEGATIVE) 12/27/21 20: Urine Nitrite Negative (NEGATIVE) 12/27/21 20:33 Urine Bilirubin Negative (NEGATIVE) 12/27/21 20:33 Urine Urobilinogen Normal (NORMAL) 12/27/21 20:33 Ur Leukocyte Esterase Negative (NEGATIVE) 12/27/21 20:33 Urine Opiates Screen Positive (NEG=<300) 12/27/21 20:33 Urine Methadone Screen Negative (NEG=<300) 12/27/21 20:33 Ur Barbiturates Screen Negative (NEG=<200) 12/27/21 20:33 Ur Phencyclidine Scrn Negative (NEG=<25) 12/27/21 20:33 Ur Amphetamines Screen Negative (NEG=<1000) 12/27/21 20:33 U Benzodiazepines Scrn Negative (NEG=<200) 12/27/21 20:33 Urine Cocaine Screen Negative (NEG=<300) 12/27/21 20:33 U Marijuana (THC) Screen Negative (NEG=<50) 12/27/21 20:33 SARS-CoV-2 (PCR) Negative (NEGATIVE) 12/27/21 20:57 Review of Systems Constitutional: Fever Eyes: No Symptoms Reported ENT: No Symptoms Reported Respiratory: No Symptoms Reported Cardiovascular: No Symptoms Reported Gastrointestinal: No Symptoms Reported Genitourinary: No Symptoms Reported Musculoskeletal: Arm Pain Skin: Wound Neurological: No Symptoms Reported Physical Exam Vital Signs: Temperature 98.5 F Pulse Rate [Right Brachial] 99 Pulse Rate 112 Respiratory Rate 20 Blood Pressure [Right Arm] 126/65 Blood Pressure [Left Arm] 122/67 Blood Pressure 139/86 O2 Sat by Pulse Oximetry 97 Oriented: Normal, Person and Place Eyes: Normal Ear: Normal Nose: Normal Throat: Normal Respiratory: Clear Throughout Cardiovascular: Normal : Normal Auscultation: Bowel Sounds: Normal Palpation: Normal Tenderness: Normal Skin: Hot and Other (Swelling of the left distal forearm which is warm to touch and tender on palpation. There is a small it is fluctuant on the distal left lateral side of the swelling.) Musculoskeletal: Left and Forearm Psychiatric: Normal Mood Description: Calm Affect: Normal Speech Pattern: Clear and Appropriate Assessment/Plan (1) Cellulitis of forearm, left: Status: Acute Plan: IV clindamycin at 600 mg IV every 6 hours. I will also put in a consult for general surgery Dr. Winn to see if he can I&D the lesion on his left distal forearm and hand. (2) Cellulitis of left hand: Status: Acute Plan: IV clindamycin at 600 mg IV every 6 hours (3) Left arm pain: Status: Acute Plan: Patient has morphine sulfate ordered for pain control. (4) Hypertension: Status: Chronic Plan: Resume home blood pressure medications and monitor blood pressure. (5) Diabetes: Qualifiers: Diabetes mellitus type: type 2 Status: Chronic Plan: Cover the patient with a sliding scale regular insulin. (6) Hyponatremia: Status: Acute Plan: Saline IV fluid hydration. Review H&P Reviewed: Yes Patient was examined?: Yes
[2021-12-29] MEDS: NS 1,000 ML IV 1,000 ML IV SCH ×2 (03:22→05:02)
[2021-12-29] MEDS: MORPHINE SULFATE INJ 4 MG IVP PRN ×5 (03:46→21:51)
[2021-12-29] MEDS: TORADOL 30 MG VIAL IVP PRN ×3 (05:11→20:50)
[2021-12-29] MEDS: CLEOCIN 600 MG IV PREMIX 600 MG/50 ML BAG IV SCH ×3 (05:58→22:56)
[2021-12-29 06:21] LABS: BASOPHILS # (AUTO) 0.1 X10^3/uL (0.0-0.1); BASOPHILS % (AUTO) 0.7 % (0.2-1.0); EOSINOPHILS # (AUTO) 0.2 x10^3/uL (0.0-0.2); EOSINOPHILS % (AUTO) 2.3 % (0.9-2.9); HEMATOCRIT 32.4 % (42.0-54.0); HEMOGLOBIN 11.1 g/dL (13.5-18.0); LYMPHOCYTES % (AUTO) 26.8 % (21.0-51.0); MEAN CORPUSCULAR HEMOGLOBIN 28.7 pg (27.0-34.0); MEAN CORPUSCULAR HGB CONC 34.2 g/dL (33.0-35.0); MEAN PLATELET VOLUME 6.8 fL (7.4-11.0); MONOCYTES # (AUTO) 0.7 x10^3/uL (0.3-0.8); MONOCYTES % (AUTO) 9.1 % (0.0-13.0); NEUTROPHILS # (AUTO) 4.6 x10^3/uL (2.2-4.8); NEUTROPHILS % (AUTO) 61.1 % (42.0-75.0); RED BLOOD COUNT 3.86 X10^6/uL (4.7-6.0); RED CELL DISTRIBUTION WIDTH 14.9 % (11.6-16.5); WHITE BLOOD COUNT 7.6 X10^3/uL (3.6-10.0)
[2021-12-29 06:34] LABS: ALANINE AMINOTRANSFERASE 19 Units/L (12-78); ALBUMIN 2.3 g/dL (3.4-5.0); ALKALINE PHOSPHATASE 123 Units/L (46-116); ASPARTATE AMINO TRANSFERASE 12 Units/L (15-37); BLOOD UREA NITROGEN 11 mg/dL (7-18); CALCIUM 8.1 mg/dL (8.5-10.1); CARBON DIOXIDE 25.8 mmol/L (21-32); CHLORIDE 102 mmol/L (98-107); COR CA(FOR HYPOALB) 9.5 mg/dL (8.5-10.1); COR NA(FOR HYPERGLY) 140 mmol/L (136-145); CREATININE 0.51 mg/dL (0.70-1.30); SODIUM 135 mmol/L (136-145); TOTAL PROTEIN 6.3 g/dL (6.4-8.2); eGFR NON BLACK RACES > 60 (>60)
[2021-12-29] MEDS: NovoLIN R (or HumuLIN R) SC PRN ×4 (06:42→21:47)
[2021-12-29] MEDS: INDERAL TAB 10 MG PO SCH ×2 (08:07→20:50)
[2021-12-29] MEDS: VIBRAMYCIN PO SCH ×2 (08:07→20:50)
[2021-12-29] MEDS: ZESTRIL TAB 5 MG PO SCH (08:07)
[2021-12-29] MEDS: SNACK - Diabetic Appropriate PO SCH (20:55)
[2021-12-30] MEDS: MORPHINE SULFATE INJ 4 MG IVP PRN ×2 (04:12→09:30)
[2021-12-30 05:54] LABS: ALANINE AMINOTRANSFERASE 15 Units/L (12-78); ALBUMIN 2.3 g/dL (3.4-5.0); ALKALINE PHOSPHATASE 97 Units/L (46-116); ASPARTATE AMINO TRANSFERASE 20 Units/L (15-37); BLOOD UREA NITROGEN 14 mg/dL (7-18); CALCIUM 8.5 mg/dL (8.5-10.1); CARBON DIOXIDE 25.1 mmol/L (21-32); CHLORIDE 101 mmol/L (98-107); COR CA(FOR HYPOALB) 9.9 mg/dL (8.5-10.1); COR NA(FOR HYPERGLY) 138 mmol/L (136-145); CREATININE 0.47 mg/dL (0.70-1.30); SODIUM 134 mmol/L (136-145); TOTAL PROTEIN 6.5 g/dL (6.4-8.2); eGFR NON BLACK RACES > 60 (>60)
[2021-12-30] MEDS: CLEOCIN 600 MG IV PREMIX 600 MG/50 ML BAG IV SCH (05:58)
[2021-12-30] MEDS: NovoLIN R (or HumuLIN R) SC PRN ×2 (06:03→12:10)
[2021-12-30] MEDS: TORADOL 30 MG VIAL IVP PRN (06:14)
[2021-12-30 06:33] LABS: BASOPHILS # (AUTO) 0.1 X10^3/uL (0.0-0.1); BASOPHILS % (AUTO) 1.2 % (0.2-1.0); EOSINOPHILS # (AUTO) 0.2 x10^3/uL (0.0-0.2); EOSINOPHILS % (AUTO) 2.8 % (0.9-2.9); HEMOGLOBIN 11.5 g/dL (13.5-18.0); LYMPHOCYTES # (AUTO) 1.9 X10^3/uL (1.3-2.9); LYMPHOCYTES % (AUTO) 31.4 % (21.0-51.0); MEAN CORPUSCULAR HGB CONC 33.8 g/dL (33.0-35.0); MEAN CORPUSCULAR VOLUME 82.9 fL (80.0-100.0); MEAN PLATELET VOLUME 6.7 fL (7.4-11.0); MONOCYTES # (AUTO) 0.5 x10^3/uL (0.3-0.8); MONOCYTES % (AUTO) 7.6 % (0.0-13.0); NEUTROPHILS # (AUTO) 3.5 x10^3/uL (2.2-4.8); RED CELL DISTRIBUTION WIDTH 14.8 % (11.6-16.5); WHITE BLOOD COUNT 6.1 X10^3/uL (3.6-10.0)
[2021-12-30] MEDS: ZESTRIL TAB 5 MG PO SCH (09:28)
[2021-12-30] MEDS: VIBRAMYCIN PO SCH (09:28)
[2021-12-30] MEDS: INDERAL TAB 10 MG PO SCH (09:28)
[2021-12-30 12:14] VITALS: BP 121/73
--- NOTE | 2022-02-05 12:05 | PCM.DCPLAN ---
Discharge Plan - Discharge Plan Hospital Course: Admit date 12/27/21 Discharge date 12/30/21 DOS 12/30/21 Admit diagnosis(1) Cellulitis of left hand (2) Cellulitis of forearm, left; with abscess formation (3) Left arm pain (4) Hypertension (5) Diabetes (6) Hyponatremia Discharge diagnosis Same Hospital Course Patient is a 51 year old white male who was admitted due to cellulitis left forearm from IV drug use. 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 Patient states he is a [facility]ci IV drug user. Patient has had cellulitis in the past due to IV drug use. History of MRSA. Patient reports severe pain to arm with swelling and fever. 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 PMH COPD, DM, HTN. Patient states he plans to get back on suboxone once discharged. Patient was admitted and treated with IV abx recently and discharged home with po abx. Area improved as well as patient symptoms over the course of hospitalization. Blood cultures were negative. Patient was discharged home on po antibiotics and instructed to follow up with pcp in 1 week. See imaging and labs, and EMAR for details Patient was re- admitted and taken to OR by Dr. Laws and underwent debridement. Patient was discharged home on po antibiotics and instructed to follow up with general surgery and pcp in as instructed. Discharge time spent >35 mins. Disposition: 01 HOME, SELF-CARE Condition: Stable Health Concerns: Post Hospitalization: new medications and changes needed to prevent readmission or further decline. Pt educated and given instructions on all concerns. Care Plan Goals: Problem: Infection Goal: Temperature within normal limits. Resolved infection. Instructions: Follow provided instructions. Follow up with primary physician as directed. Contact primary care physician or report to the closest Emergency Room if condition worsens. Plan of Treatment: Continue with present treatment and follow up plan. Pt is to keep follow up appointment as instructed and take medications as ordered. Prescriptions: Continued alogliptin-metformin [Kazano] 12.5-500 mg Tablet 1 tab PO BID lisinopril 5 mg Tablet 5 mg PO DAILY propranolol 10 mg Tablet 2.5 mg PO BID Trulicity 0.75 mg/0.5 mL Pen Injector 0.75 mg SUBCUT QWEEK Discontinued clindamycin HCl [Cleocin HCl] 150 mg Capsule 150 mg PO QID 7 Days Qty: 28 RF: 0 - Follow ups/Referrals Follow ups/Referrals: ESTELLA WALDEN [STAFF PHYSICIAN] - 01/08/22 1:00 pm - Instructions Instructions: Incision and Drainage, Care After, Steps to Quit Smoking, [id number], Type 2 Diabetes Mellitus, Self-Care, Adult, [id number], Cellulitis, Adult, [id number], Hypertension, Adult, [id number], Hyponatremia, [id number], Incision Care, Adult, [id number] Forms: Precautions for COVID19, [facility], Patient Portal, Social Distancing Print Language: FRENCH
--- NOTE | 2022-02-05 12:27 | PCM.PROG ---
Progress Note - Progress Note for Day of Date of Exam: 12/29/21 - Subjective Subjective: Patient is a 51 year old male who was admitted as per HPI. Patient continues to report pain to forearm. Patient underwent I and D of left forearm by Dr. Cobb Plan for dc in am. No new concerns or issues. - Past Medical Family Social History Past Med/Fam/Surg Hx: No changes since H&P Allergies: Allergies Penicillins Allergy (Verified 12/22/21 17:12) - Review of Systems ROS: No change since H&P - Vital Signs and I&O's Vital Signs: Temperature 98.2 F Pulse Rate [Right Brachial] 71 Pulse Rate 112 Respiratory Rate 20 Blood Pressure [Right Arm] 121/73 Blood Pressure [Left Arm] 119/70 Blood Pressure 139/86 O2 Sat by Pulse Oximetry 96 - Physical Exam Oriented: Normal, Person, Place Eyes: Normal Ear: Normal Nose: Normal Throat: Normal Respiratory: Normal Cardiovascular: Normal : Normal Auscultation: Bowel Sounds: Normal Palpation: Normal Tenderness: Normal Skin: Hot, Other (Swelling of the left distal forearm which is warm to touch and tender on palpation. There is a small it is fluctuant on the distal left lateral side of the swelling.) Musculoskeletal: Left, Forearm Psychiatric: Normal Mood Description: Calm Affect: Normal Speech Pattern: Clear, Appropriate - Laboratory and Diagnostics Result Diagrams: 12/30/21 06:20 12/30/21 06:20 Labs: 12/28/21 10:59 Arm - Abscess Wound Gram Stain - Final 12/28/21 10:59 Arm - Abscess Wound Culture - Final 12/27/21 19:48 Blood Blood Culture - Final 12/27/21 20:06 Blood Blood Culture - Final Laboratory WBC 6.1 X10^3/uL (3.6-10.0) 12/30/21 06:20 RBC 4.10 X10^6/uL (4.7-6.0) L 12/30/21 06:20 Hgb 11.5 g/dL (13.5-18.0) L 12/30/21 06:20 Hct 34.0 % (42.0-54.0) L 12/30/21 06:20 MCV 82.9 fL (80.0-100.0) 12/30/21 06:20 MCH 28.0 pg (27.0-34.0) 12/30/21 06:20 MCHC 33.8 g/dL (33.0-35.0) 12/30/21 06:20 RDW 14.8 % (11.6-16.5) 12/30/21 06:20 Plt Count 435 X10^3/uL (150.0-450.0) 12/30/21 06:20 MPV 6.7 fL (7.4-11.0) L 12/30/21 06:20 Neut % (Auto) 57.0 % (42.0-75.0) 12/30/21 06:20 Lymph % (Auto) 31.4 % (21.0-51.0) 12/30/21 06:20 [place] % (Auto) 7.6 % (0.0-13.0) 12/30/21 06:20 Eos % (Auto) 2.8 % (0.9-2.9) 12/30/21 06:20 Baso % (Auto) 1.2 % (0.2-1.0) H 12/30/21 06:20 Neut # (Auto) 3.5 x10^3/uL (2.2-4.8) 12/30/21 06:20 Lymph # (Auto) 1.9 X10^3/uL (1.3-2.9) 12/30/21 06:20 [place] # (Auto) 0.5 x10^3/uL (0.3-0.8) 12/30/21 06:20 Eos # (Auto) 0.2 x10^3/uL (0.0-0.2) 12/30/21 06:20 Baso # (Auto) 0.1 X10^3/uL (0.0-0.1) 12/30/21 06:20 Absolute Nucleated RBC 0.1 /100WBC 12/30/21 06:20 Sodium 134 mmol/L (136-145) L 12/30/21 06:20 Corrected Sodium 138 mmol/L (136-145) 12/30/21 06:20 Potassium 4.6 mmol/L (3.5-5.1) 12/30/21 06:20 Chloride 101 mmol/L (98-107) 12/30/21 06:20 Carbon Dioxide 25.1 mmol/L (21-32) 12/30/21 06:20 BUN 14 mg/dL (7-18) 12/30/21 06:20 Creatinine 0.47 mg/dL (0.70-1.30) L 12/30/21 06:20 Est GFR (MDRD) Af Amer > 60 (>60) 12/30/21 06:20 Est GFR (MDRD) Non-Af > 60 (>60) 12/30/21 06:20 Glucose 259 mg/dL (65-99) H 12/30/21 06:20 Lactic Acid 2.3 mmol/L (0.4-2.0) H 12/27/21 19:48 Calcium 8.5 mg/dL (8.5-10.1) 12/30/21 06:20 Corrected Calcium 9.9 mg/dL (8.5-10.1) 12/30/21 06:20 Total Bilirubin 0.40 mg/dL (0.2-1.0) 12/30/21 06:20 AST 20 Units/L (15-37) 12/30/21 06:20 ALT 15 Units/L (12-78) 12/30/21 06:20 Alkaline Phosphatase 97 Units/L (46-116) 12/30/21 06:20 Total Protein 6.5 g/dL (6.4-8.2) 12/30/21 06:20 Albumin 2.3 g/dL (3.4-5.0) L 12/30/21 06:20 Globulin 4.2 g/dL (2.5-4.5) 12/30/21 06:20 Albumin/Globulin Ratio 0.5 Ratio (1.1-2.1) L 12/30/21 06:20 Specimen Type Random urine 12/27/21 20:33 Urine Color Pale yellow (YELLOW) 12/27/21 20:33 Urine Appearance Clear (CLEAR) 12/27/21 20:33 Urine pH 6.0 (5.0 - 8.0) 12/27/21 20:33 Ur Specific [place] 1.015 (1.000-1.030) 12/27/21 20:33 Urine Protein Negative (NEGATIVE) 12/27/21 20:33 Urine Glucose (UA) 4+ (NEGATIVE) 12/27/21 20:33 Urine Ketones Negative (NEGATIVE) 12/27/21 20:33 Urine Blood Negative (NEGATIVE) 12/27/21 20:33 Urine Nitrite Negative (NEGATIVE) 12/27/21 20:33 Urine Bilirubin Negative (NEGATIVE) 12/27/21 20:33 Urine Urobilinogen Normal (NORMAL) 12/27/21 20:33 Ur Leukocyte Esterase Negative (NEGATIVE) 12/27/21 20:33 Urine Opiates Screen Positive (NEG=<300) 12/27/21 20:33 Urine Methadone Screen Negative (NEG=<300) 12/27/21 20:33 Ur Barbiturates Screen Negative (NEG=<200) 12/27/21 20:33 Ur Phencyclidine Scrn Negative (NEG=<25) 12/27/21 20:33 Ur Amphetamines Screen Negative (NEG=<1000) 12/27/21 20:33 U Benzodiazepines Scrn Negative (NEG=<200) 12/27/21 20:33 Urine Cocaine Screen Negative (NEG=<300) 12/27/21 20:33 U Marijuana (THC) Screen Negative (NEG=<50) 12/27/21 20:33 SARS-CoV-2 (PCR) Negative (NEGATIVE) 12/27/21 20:57 - Plan (1) Cellulitis of forearm, left Status: Acute Plan: IV abx. S/P I and D. Cultures pending (2) Hyponatremia Status: Acute Plan: Saline IV fluid hydration. (3) Left arm pain Status: Acute Plan: Patient has morphine sulfate ordered for pain control. (4) Diabetes Status: Chronic Qualifiers: Diabetes mellitus type: type 2 Plan: Cover the patient with a sliding scale regular insulin. (5) Hypertension Status: Chronic Plan: Resume home blood pressure medications and monitor blood pressure.
== END 2021-12-30 13:54 | disposition home or self-care (01) | DRG 603 ==
LOC: ER 18:49 → MED/SURG 21:11
PROVIDERS: ADMIT Family Medicine; ATTEND Internal Medicine
DX: L02.414 Cutaneous abscess of left upper limb; E11.65 Type 2 diabetes mellitus with hyperglycemia; L03.114 Cellulitis of left upper limb; B96.89 Other specified bacterial agents as the cause of diseases classified elsewhere; J44.9 Chronic obstructive pulmonary disease, unspecified; M79.602 Pain in left arm; F19.20 Other psychoactive substance dependence, uncomplicated; E87.1 Hypo-osmolality and hyponatremia; Z86.14 Personal history of Methicillin resistant Staphylococcus aureus infection; I10 Essential (primary) hypertension

== ENCOUNTER 2023-02-02 16:41 | Inpatient (IN) ==
--- NOTE | 2023-02-02 17:14 | DR.EXTPAIN ---
HPI Time seen Time Seen by Provider: 02/02/23 17:12 PCP Primary Care Physician: Chanelle Medical Complaint/Symptoms Chief Complaint Doctor Comments: 52 y/o male presents for evaluation. Fell in his house 5 days ago, suffered a small cut of the palm, does not know from what. Left hand started swelling the next day, has steadily worsened. Having pain, swelling, erythema of the left hand, spreading to the left wrist, forearm. + constant pain, worse with palpation or movement. Nothing makes it better. Denies fever, chills, URI symptoms, bowel or bladder issues. Has a lot of cats in his house. Started taking left over doxycycline, cipro, without good effect. Chief Complaint:: fell a couple of days ago with an intial small abrasion left palm and now has severe edema to hand wrist and arm. Self Treatment fo Chief Complaint: Took left over Cipro 500 mg BID from another Rx COVID-19 Coronavirus risk:travel/contact w/high risk person: No Has patient experienced Coronavirus symptoms: No Nurses notes reviewed Nurses Notes Review: Yes Source History Provided: Patient Mode of arrival Mode of Arrival: Ambulatory Timing Onset of Chief Complaint: 01/29/23 PMH PMH Past Medical History: Yes Past Medical History: Arthritis, COPD, Diabetes and Hypertension Past Surgical History: Yes Surgical History: Other Family History History of Family Medical Conditions: Yes Family Medical History: Diabetes Mellitus, Cancer, MD and Hypertension Social History Does patient currently use any type of tobacco product: No Have you used tobacco products in the last 12 months: No Type of Tobacco Use: None Does any household member use tobacco: No Alcohol Use: None Do you use any recreational Drugs:: No Lives With: Dad Lives Where: Home Travel Risk Coronavirus risk:travel/contact w/high risk person: No Has patient experienced Coronavirus symptoms: No Infectious screening In the last 2 months have you had wt loss of >10#?: NO Have you had fever, night sweats or hemotysis?: No Have you traveled outside the country in the last 6 months?: No Isolation: Standard ROS Review of Systems Constitutional: No Symptoms Reported Eyes: No Symptoms Reported ENTM: No Symptoms Reported Respiratoy: No Symptoms Reported Cardiovascular: No Symptoms Reported Gastrointestinal/Abdominal: No Symptoms Reported Genitourinary: No Symptoms Reported Neurological: No Symptoms Reported Musculoskeletal: See HPI Integumentary: No Symptoms Reported All Other Systems: Reviewed and Negative PE Vital Signs Vitals: Temperature 99.4 F Pulse Rate 120 Respiratory Rate 20 Blood Pressure [Right Arm] 121/73 Blood Pressure 142/73 O2 Sat by Pulse Oximetry 96 General General Appearance: Alert and In No Apparent Distress Eyes Eye exam: PERRL and EOMI ENT ENT Exam: Normal Exam and Mucous Membranes Moist Neck Neck Exam: Normal Inspection Respiratory Respiratory Exam: Normal Lung Sounds Bilat; negative Accessory Muscle Use or Respiratory Distress Cardiovascular Cardiovascular Exam: Regular Rate, Normal Rhythm and Normal Heart Sounds Abdominal Exam Abdominal Exam: Normal Bowel Sounds and Soft; negative Tenderness Neurological Neurological Exam: Alert, Oriented X3 and CN II-XII Intact; negative Motor Sensory Deficit Skin Skin Exam: Warm and Dry Other Exam Other Exam: L hand - closed puncture wound of palm. + marked diffuse swelling, erythema of the left hand, with dorsal erythema. + tenderness to light palpation. + decreased ROM of fingers due to swelling, can flex. + distal sensation intact. COURSE Treatment Treatment: 52 y/o male with rapidly worsening left hand cellulitis. W/u initiated. Pt given IV fluids. 1925 -Xrays do not show obvious FB, osteo, or gas formation, + significant soft tissue edema. WBC elevated to 16K, glucose up to 548. Is compliant with his DM meds. Given IV regular insulin here, 8 U. UDS + for amphetamine, denies usage/denies injecting. Discussed with Dr Lozada, covering, will admit. Will treat with IV clindamycin/cipro. ROR Labs Reviewed Laboratory Results Reviewed?: Yes Result Diagrams: 02/02/23 17:30 02/02/23 17:37 Laboratory: WBC 16.4 X10^3/uL (3.6-10.0) H 02/02/23 17:30 RBC 3.93 X10^6/uL (4.7-6.0) L 02/02/23 17:30 Hgb 10.9 g/dL (13.5-18.0) L 02/02/23 17:30 Hct 32.5 % (42.0-54.0) L 02/02/23 17:30 MCV 82.7 fL (80.0-100.0) 02/02/23 17:30 MCH 27.8 pg (27.0-34.0) 02/02/23 17:30 MCHC 33.6 g/dL (33.0-35.0) 02/02/23 17:30 RDW 14.5 % (11.6-16.5) 02/02/23 17:30 Plt Count 319 X10^3/uL (150.0-450.0) 02/02/23 17:30 MPV 7.5 fL (7.4-11.0) 02/02/23 17:30 Neut % (Auto) 83.9 % (42.0-75.0) H 02/02/23 17:30 Lymph % (Auto) 8.4 % (21.0-51.0) L 02/02/23 17:30 [place] % (Auto) 6.9 % (0.0-13.0) 02/02/23 17:30 Eos % (Auto) 0.4 % (0.9-2.9) L 02/02/23 17:30 Baso % (Auto) 0.4 % (0.2-1.0) 02/02/23 17:30 Neut # (Auto) 13.7 x10^3/uL (2.2-4.8) H 02/02/23 17:30 Lymph # (Auto) 1.4 X10^3/uL (1.3-2.9) 02/02/23 17:30 [place] # (Auto) 1.1 x10^3/uL (0.3-0.8) H 02/02/23 17:30 Eos # (Auto) 0.1 x10^3/uL (0.0-0.2) 02/02/23 17:30 Baso # (Auto) 0.1 X10^3/uL (0.0-0.1) 02/02/23 17:30 Absolute Nucleated RBC 0.0 /100WBC 02/02/23 17:30 Sodium 129 mmol/L (136-145) L 02/02/23 17:37 Corrected Sodium 140 mmol/L (136-145) 02/02/23 17:37 Potassium 3.5 mmol/L (3.5-5.1) 02/02/23 17:37 Chloride 93 mmol/L (98-107) L 02/02/23 17:37 Carbon Dioxide 28.2 mmol/L (21-32) 02/02/23 17:37 BUN 11 mg/dL (7-18) 02/02/23 17:37 Creatinine 0.82 mg/dL (0.70-1.30) 02/02/23 17:37 Est GFR (MDRD) Af Amer > 60 (>60) 02/02/23 17:37 Est GFR (MDRD) Non-Af > 60 (>60) 02/02/23 17:37 Glucose 548 mg/dL (65-99) H* 02/02/23 17:37 Lactic Acid 1.2 mmol/L (0.4-2.0) 02/02/23 17:37 Calcium 8.4 mg/dL (8.5-10.1) L 02/02/23 17:37 Corrected Calcium 9.6 mg/dL (8.5-10.1) 02/02/23 17:37 Total Bilirubin 0.30 mg/dL (0.2-1.0) 02/02/23 17:37 AST 9 Units/L (15-37) L 02/02/23 17:37 ALT 15 Units/L (12-78) 02/02/23 17:37 Alkaline Phosphatase 114 Units/L (46-116) 02/02/23 17:37 Total Protein 7.1 g/dL (6.4-8.2) 02/02/23 17:37 Albumin 2.5 g/dL (3.4-5.0) L 02/02/23 17:37 Globulin 4.6 g/dL (2.5-4.5) H 02/02/23 17:37 Albumin/Globulin Ratio 0.5 Ratio (1.1-2.1) L 02/02/23 17:37 Specimen Type Clean catch urine 02/02/23 18:20 Urine Color Straw (YELLOW) 02/02/23 18:20 Urine Appearance Clear (CLEAR) 02/02/23 18:20 Urine pH 6.0 (5.0 - 8.0) 02/02/23 18:20 Ur Specific [place] 1.010 (1.000-1.030) 02/02/23 18:20 Urine Protein Negative (NEGATIVE) 02/02/23 18:20 Urine Glucose (UA) 4+ (NEGATIVE) 02/02/23 18:20 Urine Ketones Negative (NEGATIVE) 02/02/23 18:20 Urine Blood Negative (NEGATIVE) 02/02/23 18:20 Urine Nitrite Negative (NEGATIVE) 02/02/23 18:20 Urine Bilirubin Negative (NEGATIVE) 02/02/23 18:20 Urine Urobilinogen Normal (NORMAL) 02/02/23 18:20 Ur Leukocyte Esterase Negative (NEGATIVE) 02/02/23 18:20 Urine Opiates Screen Negative (NEG=<300) 02/02/23 18:20 Urine Methadone Screen Negative (NEG=<300) 02/02/23 18:20 Ur Barbiturates Screen Negative (NEG=<200) 02/02/23 18:20 Ur Phencyclidine Scrn Negative (NEG=<25) 02/02/23 18:20 Ur Amphetamines Screen Positive (NEG=<1000) 02/02/23 18:20 U Benzodiazepines Scrn Negative (NEG=<200) 02/02/23 18:20 Urine Cocaine Screen Negative (NEG=<300) 02/02/23 18:20 U Marijuana (THC) Screen Negative (NEG=<50) 02/02/23 18:20 see comments under "Course" XRAY XRAY Interpreted by: Self X-ray Results: + soft tissue swelling, no obvious FB, no significant gas formation. Opioid Opioid Risk Tool Age (Shay box if 16-45): No History of Preadolescent Sexual Abuse: No Total: 0 Total Score Risk Category: Low Risk Copyright: Luca NEELY predicting aberrant behaviors Discharge Plan Diagnosis Discharge Problem: Cellulitis of hand, left Discharge Plan Patient Disposition: 09 ADMITTED INPATIENT Condition: Stable Orders to Discharge Patient Discharge Orders: Transfer (Routine); Ordered 02/02/23 Ordered By: Chris Galvan
[2023-02-02] MEDS ORDERED: NS 1,000 ML IV 1,000 ML IV ONE (17:22)
[2023-02-02] MEDS ORDERED: NS 1,000 ML IV 1,000 ML ONE (17:32)
[2023-02-02 17:55] LABS: BASOPHILS # (AUTO) 0.1 X10^3/uL (0.0-0.1); BASOPHILS % (AUTO) 0.4 % (0.2-1.0); EOSINOPHILS # (AUTO) 0.1 x10^3/uL (0.0-0.2); EOSINOPHILS % (AUTO) 0.4 % (0.9-2.9); HEMATOCRIT 32.5 % (42.0-54.0); HEMOGLOBIN 10.9 g/dL (13.5-18.0); LYMPHOCYTES # (AUTO) 1.4 X10^3/uL (1.3-2.9); LYMPHOCYTES % (AUTO) 8.4 % (21.0-51.0); MEAN CORPUSCULAR HEMOGLOBIN 27.8 pg (27.0-34.0); MEAN CORPUSCULAR HGB CONC 33.6 g/dL (33.0-35.0); MEAN CORPUSCULAR VOLUME 82.7 fL (80.0-100.0); MEAN PLATELET VOLUME 7.5 fL (7.4-11.0); MONOCYTES # (AUTO) 1.1 x10^3/uL (0.3-0.8); MONOCYTES % (AUTO) 6.9 % (0.0-13.0); NEUTROPHILS # (AUTO) 13.7 x10^3/uL (2.2-4.8); NEUTROPHILS % (AUTO) 83.9 % (42.0-75.0); PLATELET COUNT 319 X10^3/uL (150.0-450.0); RED BLOOD COUNT 3.93 X10^6/uL (4.7-6.0); RED CELL DISTRIBUTION WIDTH 14.5 % (11.6-16.5); WHITE BLOOD COUNT 16.4 X10^3/uL (3.6-10.0)
[2023-02-02 18:07] LABS: ALANINE AMINOTRANSFERASE 15 Units/L (12-78); ALBUMIN 2.5 g/dL (3.4-5.0); ALKALINE PHOSPHATASE 114 Units/L (46-116); ASPARTATE AMINO TRANSFERASE 9 Units/L (15-37); BLOOD UREA NITROGEN 11 mg/dL (7-18); CALCIUM 8.4 mg/dL (8.5-10.1); CARBON DIOXIDE 28.2 mmol/L (21-32); CHLORIDE 93 mmol/L (98-107); COR CA(FOR HYPOALB) 9.6 mg/dL (8.5-10.1); CREATININE 0.82 mg/dL (0.70-1.30); POTASSIUM 3.5 mmol/L (3.5-5.1); SODIUM 129 mmol/L (136-145); TOTAL PROTEIN 7.1 g/dL (6.4-8.2); eGFR NON BLACK RACES > 60 (>60)
[2023-02-02 18:11] LABS: LACTIC ACID 1.2 mmol/L (0.4-2.0)
[2023-02-02 18:20] LABS: COR NA(FOR HYPERGLY) 140 mmol/L (136-145)
[2023-02-02 18:21] LABS: GLUCOSE 548 mg/dL (65-99)
[2023-02-02] MEDS ORDERED: NovoLIN R (or HumuLIN R) IV ONE (18:24)
[2023-02-02 18:31] LABS: BILIRUBIN,URINE NEGATIVE (NEGATIVE); BLOOD/HEMOGLOBIN,URINE NEGATIVE (NEGATIVE); GLUCOSE, URINE 4+ (NEGATIVE); KETONES,URINE NEGATIVE (NEGATIVE); LEUKOCYTE ESTERASE ,URINE NEGATIVE (NEGATIVE); NITRITES,URINE NEGATIVE (NEGATIVE); PROTEIN,URINE NEGATIVE (NEGATIVE); UROBILINOGEN,URINE NORMAL (NORMAL)
[2023-02-02 18:37] LABS: APPEARANCE,URINE CLEAR (CLEAR); COLOR,URINE STRAW (YELLOW)
[2023-02-02] MEDS ORDERED: NovoLIN R (or HumuLIN R) ONE ×2 (18:39→18:44)
[2023-02-02] MEDS ORDERED: CIPRO IV 400 MG PREMIX* 400 MG/200 ML IV.SOLN. IV ONE (19:34)
[2023-02-02] MEDS: CIPRO IV 400 MG PREMIX* 400 MG/200 ML IV.SOLN. IV SCH ×2 (19:46→21:22)
[2023-02-02] MEDS ORDERED: ZOFRAN INJ 4 MG VIAL IVP PRN (20:45)
[2023-02-02] MEDS: INDERAL TAB 10 MG PO SCH (21:02)
[2023-02-02] MEDS: NEURONTIN CAP 400 MG PO SCH (21:02)
[2023-02-02] MEDS: SNACK - Diabetic Appropriate PO SCH (21:02)
[2023-02-02] MEDS: CLEOCIN 300 MG IV PREMIX 300 MG/50 ML BAG IV SCH ×2 (21:03→21:22)
[2023-02-02] MEDS: MORPHINE SULFATE INJ 4 MG IVP PRN (21:05)
[2023-02-02] MEDS: [UNRECOGNIZED DRUG - OTHER] PO SCH (21:51)
[2023-02-02] MEDS ORDERED: MICRO K EXTEN CAP 10 MEQ PO PRN (22:29)
[2023-02-03] MEDS: CLEOCIN 300 MG IV PREMIX 300 MG/50 ML BAG IV SCH ×3 (05:32→22:12)
[2023-02-03 05:35] LABS: BASOPHILS # (AUTO) 0.1 X10^3/uL (0.0-0.1); BASOPHILS % (AUTO) 0.8 % (0.2-1.0); EOSINOPHILS # (AUTO) 0.1 x10^3/uL (0.0-0.2); EOSINOPHILS % (AUTO) 0.7 % (0.9-2.9); HEMATOCRIT 33.3 % (42.0-54.0); HEMOGLOBIN 11.3 g/dL (13.5-18.0); LYMPHOCYTES # (AUTO) 1.9 X10^3/uL (1.3-2.9); LYMPHOCYTES % (AUTO) 12.2 % (21.0-51.0); MEAN CORPUSCULAR HEMOGLOBIN 27.8 pg (27.0-34.0); MEAN CORPUSCULAR VOLUME 81.7 fL (80.0-100.0); MEAN PLATELET VOLUME 7.7 fL (7.4-11.0); MONOCYTES # (AUTO) 1.1 x10^3/uL (0.3-0.8); NEUTROPHILS # (AUTO) 12.2 x10^3/uL (2.2-4.8); NEUTROPHILS % (AUTO) 79.3 % (42.0-75.0); PLATELET COUNT 301 X10^3/uL (150.0-450.0); RED BLOOD COUNT 4.08 X10^6/uL (4.7-6.0); RED CELL DISTRIBUTION WIDTH 14.5 % (11.6-16.5); WHITE BLOOD COUNT 15.4 X10^3/uL (3.6-10.0)
--- NOTE | 2023-02-03 05:43 | RAD ---
HISTORYfell a couple of days ago with an intial small abrasion left palm and now has severe edema to hand wrist and arm. Relevant Clinical InformationSTUDYHAND, LEFTCOMPARISONNoneFINDINGSNo acute cortical disruption or dislocation is identified. Soft tissue swelling overlying the dorsum of the hand.. No radiopaque foreign bodies. The carpal bones appear aligned without evidence for fracture.IMPRESSIONSoft tissue swelling dorsum of the hand.No acute bony abnormalityElectronically signed by: Jose Armando Mayorga (February 03, 2023 05:41:26)
[2023-02-03 05:52] LABS: ALANINE AMINOTRANSFERASE 14 Units/L (12-78); ALBUMIN 2.2 g/dL (3.4-5.0); ALKALINE PHOSPHATASE 93 Units/L (46-116); ASPARTATE AMINO TRANSFERASE 13 Units/L (15-37); BLOOD UREA NITROGEN 5 mg/dL (7-18); CALCIUM 8.3 mg/dL (8.5-10.1); CARBON DIOXIDE 28.3 mmol/L (21-32); CHLORIDE 95 mmol/L (98-107); COR CA(FOR HYPOALB) 9.7 mg/dL (8.5-10.1); COR NA(FOR HYPERGLY) 135 mmol/L (136-145); CREATININE 0.48 mg/dL (0.70-1.30); GLUCOSE 229 mg/dL (65-99); MAGNESIUM 1.5 mg/dL (2.0-2.9); POTASSIUM 3.2 mmol/L (3.5-5.1); SODIUM 132 mmol/L (136-145); TOTAL PROTEIN 6.7 g/dL (6.4-8.2); eGFR NON BLACK RACES > 60 (>60)
[2023-02-03] MEDS: K-DUR TAB 20 MEQ PO PRN ×2 (06:17→20:45)
[2023-02-03] MEDS: MAGNESIUM SULFATE 1 GRAM/100 mL PREMIX 1 G/100 ML BAG IV PRN ×2 (06:18→09:02)
[2023-02-03] MEDS: NovoLIN R (or HumuLIN R) SUBCUT PRN ×4 (06:18→20:55)
[2023-02-03] MEDS: ZESTRIL TAB 5 MG PO SCH (08:49)
[2023-02-03] MEDS: INDERAL TAB 10 MG PO SCH ×2 (08:49→20:44)
[2023-02-03] MEDS ORDERED: DULAGLUTIDE 0.75 MG/0.5 ML SUBCUT SCH (09:00)
[2023-02-03] MEDS: [UNRECOGNIZED DRUG - OTHER] PO SCH ×2 (09:02→21:24)
[2023-02-03] MEDS: MORPHINE SULFATE INJ 4 MG IVP PRN ×4 (09:02→20:11)
[2023-02-03] MEDS: CIPRO IV 400 MG PREMIX* 400 MG/200 ML IV.SOLN. IV SCH ×2 (09:15→20:45)
--- NOTE | 2023-02-03 09:32 | DR.H&P ---
H&P History & Physical for Day of: H&P Date: 02/03/23 Chief Complaint Chief Complaint: Infected left hand Allergies Allergies Allergy/AdvReac Type Severity Reaction Status Date / Time Penicillins Allergy Verified 12/22/21 17:12 History of Present Illness History of Present Illness: This is a pleasant 52-year-old white male well-known to me. He comes into the emergency department yesterday after falling 6 days ago and cutting his left palm. He does not know what he cut his palm on with the day after he cut it he had swollen up and started turning red. Infection progressed to his left wrist and left forearm over the next several days. He reports is hurting very bad and nothing he can do is helping that. He started taking some leftover doxycycline and ciprofloxacin that he had prior to coming to the emergency department. Work-up in the emergency department revealed he had a leukocytosis over 16,000. He was positive for amphetamines but does not have amphetamines on his home medications. He has a history of type 2 diabetes mellitus, diabetic peripheral neuropathy, hypertension and osteoarthritis. Patient does report that he has a lot of cats inside his home as well. Blood cultures x2 were drawn yesterday in the emergency department and they are already starting to see something grow out. Past Medical History Past Medical History: Arthritis, COPD, Diabetes and Hypertension Past Surgical History Surgical History: Other Family History Family Medical History: Diabetes Mellitus, Cancer and [place] Social History Does patient currently use any type of tobacco product: No Have you used tobacco products in the last 12 months: No Type of Tobacco Use: None Does any household member use tobacco: No Alcohol Use: None Drug Use: None Medications Home Medications: Home Medications Medication Instructions Recorded Confirmed Type alogliptin 12.5 mg-metformin 500 1 tab PO BID 12/22/21 02/02/23 History mg tablet (Kazano) dulaglutide 0.75 mg/0.5 mL 0.75 mg subcut QWEEK 12/22/21 02/02/23 History subcutaneous pen injector (Donnie) lisinopril 5 mg tablet 5 mg PO DAILY 12/22/21 02/02/23 History propranolol 10 mg tablet 2.5 mg PO BID 12/22/21 02/02/23 History diclofenac sodium 50 mg 1 tab PO PRN PRN 02/02/23 02/02/23 History tablet,delayed release gabapentin 800 mg tablet 800 mg PO HS 02/02/23 02/02/23 History (Neurontin) Labs Result Diagrams: 02/03/23 05:04 02/03/23 08:29 Labs: 02/02/23 17:37 Blood Blood Culture - Preliminary Laboratory WBC 15.4 X10^3/uL (3.6-10.0) H 02/03/23 05:04 RBC 4.08 X10^6/uL (4.7-6.0) L 02/03/23 05:04 Hgb 11.3 g/dL (13.5-18.0) L 02/03/23 05:04 Hct 33.3 % (42.0-54.0) L 02/03/23 05:04 MCV 81.7 fL (80.0-100.0) 02/03/23 05:04 MCH 27.8 pg (27.0-34.0) 02/03/23 05:04 MCHC 34.0 g/dL (33.0-35.0) 02/03/23 05:04 RDW 14.5 % (11.6-16.5) 02/03/23 05:04 Plt Count 301 X10^3/uL (150.0-450.0) 02/03/23 05:04 MPV 7.7 fL (7.4-11.0) 02/03/23 05:04 Neut % (Auto) 79.3 % (42.0-75.0) H 02/03/23 05:04 Lymph % (Auto) 12.2 % (21.0-51.0) L 02/03/23 05:04 [place] % (Auto) 7.0 % (0.0-13.0) 02/03/23 05:04 Eos % (Auto) 0.7 % (0.9-2.9) L 02/03/23 05:04 Baso % (Auto) 0.8 % (0.2-1.0) 02/03/23 05:04 Neut # (Auto) 12.2 x10^3/uL (2.2-4.8) H 02/03/23 05:04 Lymph # (Auto) 1.9 X10^3/uL (1.3-2.9) 02/03/23 05:04 [place] # (Auto) 1.1 x10^3/uL (0.3-0.8) H 02/03/23 05:04 Eos # (Auto) 0.1 x10^3/uL (0.0-0.2) 02/03/23 05:04 Baso # (Auto) 0.1 X10^3/uL (0.0-0.1) 02/03/23 05:04 Absolute Nucleated RBC 0.0 /100WBC 02/03/23 05:04 ESR 109 MM/HOUR (0-15) H 02/03/23 05:04 Sodium 132 mmol/L (136-145) L 02/03/23 05:04 Corrected Sodium 135 mmol/L (136-145) L 02/03/23 05:04 Potassium 3.8 mmol/L (3.5-5.1) 02/03/23 08:29 Chloride 95 mmol/L (98-107) L 02/03/23 05:04 Carbon Dioxide 28.3 mmol/L (21-32) 02/03/23 05:04 BUN 5 mg/dL (7-18) L 02/03/23 05:04 Creatinine 0.48 mg/dL (0.70-1.30) L 02/03/23 05:04 Est GFR (MDRD) Af Amer > 60 (>60) 02/03/23 05:04 Est GFR (MDRD) Non-Af > 60 (>60) 02/03/23 05:04 Glucose 229 mg/dL (65-99) H 02/03/23 05:04 POC Glucose (mg/dL) 272 mg/dL (65-99) H 02/03/23 05:29 Lactic Acid 1.2 mmol/L (0.4-2.0) 02/02/23 17:37 Calcium 8.3 mg/dL (8.5-10.1) L 02/03/23 05:04 Corrected Calcium 9.7 mg/dL (8.5-10.1) 02/03/23 05:04 Magnesium 1.5 mg/dL (2.0-2.9) L 02/03/23 05:04 Total Bilirubin 0.60 mg/dL (0.2-1.0) 02/03/23 05:04 AST 13 Units/L (15-37) L 02/03/23 05:04 ALT 14 Units/L (12-78) 02/03/23 05:04 Alkaline Phosphatase 93 Units/L (46-116) 02/03/23 05:04 C-Reactive Protein 210.70 mg/L (0-3.0) H 02/03/23 05:04 Total Protein 6.7 g/dL (6.4-8.2) 02/03/23 05:04 Albumin 2.2 g/dL (3.4-5.0) L 02/03/23 05:04 Globulin 4.5 g/dL (2.5-4.5) 02/03/23 05:04 Albumin/Globulin Ratio 0.5 Ratio (1.1-2.1) L 02/03/23 05:04 Specimen Type Clean catch urine 02/02/23 18:20 Urine Color Straw (YELLOW) 02/02/23 18:20 Urine Appearance Clear (CLEAR) 02/02/23 18:20 Urine pH 6.0 (5.0 - 8.0) 02/02/23 18:20 Ur Specific [place] 1.010 (1.000-1.030) 02/02/23 18:20 Urine Protein Negative (NEGATIVE) 02/02/23 18:20 Urine Glucose (UA) 4+ (NEGATIVE) 02/02/23 18:20 Urine Ketones Negative (NEGATIVE) 02/02/23 18:20 Urine Blood Negative (NEGATIVE) 02/02/23 18:20 Urine Nitrite Negative (NEGATIVE) 02/02/23 18:20 Urine Bilirubin Negative (NEGATIVE) 02/02/23 18:20 Urine Urobilinogen Normal (NORMAL) 02/02/23 18:20 Ur Leukocyte Esterase Negative (NEGATIVE) 02/02/23 18:20 Urine Opiates Screen Negative (NEG=<300) 02/02/23 18:20 Urine Methadone Screen Negative (NEG=<300) 02/02/23 18:20 Ur Barbiturates Screen Negative (NEG=<200) 02/02/23 18:20 Ur Phencyclidine Scrn Negative (NEG=<25) 02/02/23 18:20 Ur Amphetamines Screen Positive (NEG=<1000) 02/02/23 18:20 U Benzodiazepines Scrn Negative (NEG=<200) 02/02/23 18:20 Urine Cocaine Screen Negative (NEG=<300) 02/02/23 18:20 U Marijuana (THC) Screen Negative (NEG=<50) 02/02/23 18:20 Review of Systems Constitutional: Fever, Chills, Sweats and Malaise Eyes: No Symptoms Reported ENT: No Symptoms Reported Respiratory: No Symptoms Reported Cardiovascular: No Symptoms Reported Gastrointestinal: No Symptoms Reported Genitourinary: No Symptoms Reported Musculoskeletal: Arm Pain and Hand Pain Skin: No Symptoms Reported Neurological: No Symptoms Reported Physical Exam Vital Signs: Temperature 98.6 F Temperature 99.4 F Pulse Rate [Brachial] 103 Pulse Rate 120 Respiratory Rate 18 Respiratory Rate 20 Blood Pressure [Left Arm] 128/60 Blood Pressure [Right Arm] 121/73 Blood Pressure 142/73 O2 Sat by Pulse Oximetry 96 O2 Sat by Pulse Oximetry 96 Oriented: Normal, Time, Person and Place Eyes: Normal Ear: Normal Nose: Normal Throat: Normal Respiratory: Clear Throughout Cardiovascular: Normal Auscultation: Bowel Sounds: Normal Palpation: Normal Tenderness: Normal Skin: Red, Tender and Hot Musculoskeletal: Normal Psychiatric: Normal Mood Description: Calm Affect: Normal Speech Pattern: Clear and Appropriate Assessment/Plan (1) Cellulitis of hand, left: Status: Acute Plan: IV clindamycin and Bactrim. Check ESR and CRP today. There is no abscess seen to do I&D on this time. (2) Cellulitis of forearm, left: Status: Acute Plan: Continue IV clindamycin and Bactrim. (3) Left arm pain: Status: Acute Plan: Pain control. Check daily ESR and CRP's. (4) Hypertension: Status: Chronic Plan: Continue patient's lisinopril 5 mg daily and propanolol 2.5 mg twice daily. (5) COPD (chronic obstructive pulmonary disease): Status: Chronic Plan: I will discuss with patient with started him on treatment for this since he is not currently taking anything. (6) Type 2 diabetes mellitus: Status: Acute Plan: Sliding scale regular insulin per protocol. (7) Hypokalemia: Status: Acute Plan: Potassium/magnesium replacement protocol. (8) Hypomagnesemia: Status: Acute Plan: Potassium/magnesium replacement protocol. (9) Diabetic peripheral neuropathy associated with type 2 diabetes mellitus: Status: Acute Plan: Resume patient's gabapentin 800 mg at bedtime. Review H&P Reviewed: Yes Patient was examined?: Yes
[2023-02-03] MEDS ORDERED: NS 1,000 ML IV 1,000 ML ONE (13:36)
[2023-02-03] MEDS: SNACK - Diabetic Appropriate PO SCH (20:30)
[2023-02-03] MEDS: NEURONTIN CAP 400 MG PO SCH (20:44)
[2023-02-04] MEDS: TYLENOL 325 MG TAB PO PRN (00:10)
[2023-02-04] MEDS: MORPHINE SULFATE INJ 4 MG IVP PRN ×3 (01:36→09:03)
[2023-02-04] MEDS: CLEOCIN 300 MG IV PREMIX 300 MG/50 ML BAG IV SCH ×3 (05:37→22:36)
[2023-02-04 06:03] LABS: BASOPHILS # (AUTO) 0.1 X10^3/uL (0.0-0.1); BASOPHILS % (AUTO) 0.4 % (0.2-1.0); EOSINOPHILS # (AUTO) 0.1 x10^3/uL (0.0-0.2); EOSINOPHILS % (AUTO) 0.8 % (0.9-2.9); HEMATOCRIT 33.1 % (42.0-54.0); HEMOGLOBIN 11.3 g/dL (13.5-18.0); LYMPHOCYTES # (AUTO) 1.6 X10^3/uL (1.3-2.9); LYMPHOCYTES % (AUTO) 13.4 % (21.0-51.0); MEAN CORPUSCULAR HEMOGLOBIN 28.1 pg (27.0-34.0); MEAN CORPUSCULAR HGB CONC 34.2 g/dL (33.0-35.0); MEAN CORPUSCULAR VOLUME 81.9 fL (80.0-100.0); MEAN PLATELET VOLUME 7.6 fL (7.4-11.0); MONOCYTES # (AUTO) 0.9 x10^3/uL (0.3-0.8); MONOCYTES % (AUTO) 7.2 % (0.0-13.0); NEUTROPHILS # (AUTO) 9.4 x10^3/uL (2.2-4.8); NEUTROPHILS % (AUTO) 78.2 % (42.0-75.0); PLATELET COUNT 351 X10^3/uL (150.0-450.0); RED BLOOD COUNT 4.04 X10^6/uL (4.7-6.0); RED CELL DISTRIBUTION WIDTH 14.4 % (11.6-16.5)
[2023-02-04 06:07] LABS: ERYTHROCYTE SEDIMENTATION RATE 96 MM/HOUR (0-15)
[2023-02-04 06:21] LABS: ALANINE AMINOTRANSFERASE 17 Units/L (12-78); ALBUMIN 2.2 g/dL (3.4-5.0); ALKALINE PHOSPHATASE 97 Units/L (46-116); ASPARTATE AMINO TRANSFERASE 15 Units/L (15-37); BLOOD UREA NITROGEN 6 mg/dL (7-18); CALCIUM 8.4 mg/dL (8.5-10.1); CARBON DIOXIDE 27.4 mmol/L (21-32); CHLORIDE 97 mmol/L (98-107); COR CA(FOR HYPOALB) 9.8 mg/dL (8.5-10.1); COR NA(FOR HYPERGLY) 136 mmol/L (136-145); CREATININE 0.49 mg/dL (0.70-1.30); GLUCOSE 228 mg/dL (65-99); MAGNESIUM 1.8 mg/dL (2.0-2.9); POTASSIUM 3.5 mmol/L (3.5-5.1); SODIUM 133 mmol/L (136-145); TOTAL PROTEIN 6.9 g/dL (6.4-8.2); eGFR NON BLACK RACES > 60 (>60)
[2023-02-04] MEDS: NovoLIN R (or HumuLIN R) SUBCUT PRN ×3 (06:23→17:38)
[2023-02-04] MEDS: MAGNESIUM SULFATE 1 GRAM/100 mL PREMIX 1 G/100 ML BAG IV PRN ×2 (06:39→09:46)
[2023-02-04] MEDS: ZESTRIL TAB 5 MG PO SCH (09:44)
[2023-02-04] MEDS: K-DUR TAB 20 MEQ PO PRN (09:44)
[2023-02-04] MEDS: INDERAL TAB 10 MG PO SCH ×2 (09:45→20:11)
[2023-02-04] MEDS: CIPRO IV 400 MG PREMIX* 400 MG/200 ML IV.SOLN. IV SCH ×3 (09:47→21:29)
[2023-02-04] MEDS: LEVEMIR SC SCH ×2 (09:54→20:21)
[2023-02-04] MEDS: DILAUDID INJ IVP PRN ×5 (11:25→22:20)
--- NOTE | 2023-02-04 13:57 | PCM.PROG ---
Progress Note Progress Note for Day of Date of Exam: 02/04/23 Subjective Subjective: Patient is doing about the same this morning he says. His left hand and arm look less erythematous and I see that his ESR and CRP have trended down since yesterday. Last night the nurses found a syringe with needle on an old pair of socks that he had. When I asked him about it he said it was an old needle and syringe that he put there a long time ago. He reports that he is not taking any illegal medications however his urine drug screen did show that he was positive for amphetamines. I cautioned him about the risk of using needles he says he understands this and is currently not using any illegal substances. I did inform him that I will be getting a surgical consultation with Dr. Velarde today to see if there is anything he can do regarding the infection. The patient does have coagulase positive staph in both that were collected for blood cultures. He currently is receiving IV clindamycin and IV Bactrim. Past Medical Family Social History Allergies: Allergies Penicillins Allergy (Verified 12/22/21 17:12) Review of Systems ROS: No change since H&P Vital Signs and I&O's Vital Signs: Temperature 98.5 F Temperature 99.4 F Pulse Rate [Brachial] 82 Pulse Rate 120 Respiratory Rate 18 Respiratory Rate 20 Blood Pressure [Left Arm] 135/66 Blood Pressure [Right Arm] 121/59 Blood Pressure 142/73 O2 Sat by Pulse Oximetry 96 O2 Sat by Pulse Oximetry 96 Intake and Output: Intake & Output 02/02/23 02/03/23 02/04/23 02/05/23 11:59 11:59 11:59 11:59 Intake Total 2655 / 2655 3229 / 3229 Output Total 1400 / 1400 Balance 2655 / 2655 1829 / 1829 Physical Exam Oriented: Normal, Time, Person and Place Eyes: Normal Ear: Normal Nose: Normal Throat: Normal Respiratory: Normal Cardiovascular: Normal Auscultation: Bowel Sounds: Normal Tenderness: Normal Skin: Red, Tender and Hot Musculoskeletal: Normal Psychiatric: Normal Mood Description: Calm Affect: Normal Speech Pattern: Clear and Appropriate Laboratory and Diagnostics Result Diagrams: 02/04/23 05:23 02/04/23 12:00 Labs: 02/02/23 17:30 Blood Blood Culture - Preliminary 02/02/23 17:37 Blood Blood Culture - Preliminary Laboratory WBC 12.0 X10^3/uL (3.6-10.0) H 02/04/23 05:23 RBC 4.04 X10^6/uL (4.7-6.0) L 02/04/23 05:23 Hgb 11.3 g/dL (13.5-18.0) L 02/04/23 05:23 Hct 33.1 % (42.0-54.0) L 02/04/23 05:23 MCV 81.9 fL (80.0-100.0) 02/04/23 05:23 MCH 28.1 pg (27.0-34.0) 02/04/23 05:23 MCHC 34.2 g/dL (33.0-35.0) 02/04/23 05:23 RDW 14.4 % (11.6-16.5) 02/04/23 05:23 Plt Count 351 X10^3/uL (150.0-450.0) 02/04/23 05:23 MPV 7.6 fL (7.4-11.0) 02/04/23 05:23 Neut % (Auto) 78.2 % (42.0-75.0) H 02/04/23 05:23 Lymph % (Auto) 13.4 % (21.0-51.0) L 02/04/23 05:23 [place] % (Auto) 7.2 % (0.0-13.0) 02/04/23 05:23 Eos % (Auto) 0.8 % (0.9-2.9) L 02/04/23 05:23 Baso % (Auto) 0.4 % (0.2-1.0) 02/04/23 05:23 Neut # (Auto) 9.4 x10^3/uL (2.2-4.8) H 02/04/23 05:23 Lymph # (Auto) 1.6 X10^3/uL (1.3-2.9) 02/04/23 05:23 [place] # (Auto) 0.9 x10^3/uL (0.3-0.8) H 02/04/23 05:23 Eos # (Auto) 0.1 x10^3/uL (0.0-0.2) 02/04/23 05:23 Baso # (Auto) 0.1 X10^3/uL (0.0-0.1) 02/04/23 05:23 Absolute Nucleated RBC 0.0 /100WBC 02/04/23 05:23 ESR 96 MM/HOUR (0-15) H 02/04/23 05:23 Sodium 133 mmol/L (136-145) L 02/04/23 05:23 Corrected Sodium 136 mmol/L (136-145) 02/04/23 05:23 Potassium 3.6 mmol/L (3.5-5.1) 02/04/23 12:00 Chloride 97 mmol/L (98-107) L 02/04/23 05:23 Carbon Dioxide 27.4 mmol/L (21-32) 02/04/23 05:23 BUN 6 mg/dL (7-18) L 02/04/23 05:23 Creatinine 0.49 mg/dL (0.70-1.30) L 02/04/23 05:23 Est GFR (MDRD) Af Amer > 60 (>60) 02/04/23 05:23 Est GFR (MDRD) Non-Af > 60 (>60) 02/04/23 05:23 Glucose 228 mg/dL (65-99) H 02/04/23 05:23 POC Glucose (mg/dL) 227 mg/dL (65-99) H 02/04/23 11:15 Lactic Acid 1.2 mmol/L (0.4-2.0) 02/02/23 17:37 Calcium 8.4 mg/dL (8.5-10.1) L 02/04/23 05:23 Corrected Calcium 9.8 mg/dL (8.5-10.1) 02/04/23 05:23 Magnesium 1.8 mg/dL (2.0-2.9) L 02/04/23 05:23 Total Bilirubin 0.30 mg/dL (0.2-1.0) 02/04/23 05:23 AST 15 Units/L (15-37) 02/04/23 05:23 ALT 17 Units/L (12-78) 02/04/23 05:23 Alkaline Phosphatase 97 Units/L (46-116) 02/04/23 05:23 C-Reactive Protein 127.10 mg/L (0-3.0) H 02/04/23 05:23 Total Protein 6.9 g/dL (6.4-8.2) 02/04/23 05:23 Albumin 2.2 g/dL (3.4-5.0) L 02/04/23 05:23 Globulin 4.7 g/dL (2.5-4.5) H 02/04/23 05:23 Albumin/Globulin Ratio 0.5 Ratio (1.1-2.1) L 02/04/23 05:23 Specimen Type Clean catch urine 02/02/23 18:20 Urine Color Straw (YELLOW) 02/02/23 18:20 Urine Appearance Clear (CLEAR) 02/02/23 18:20 Urine pH 6.0 (5.0 - 8.0) 02/02/23 18:20 Ur Specific [place] 1.010 (1.000-1.030) 02/02/23 18:20 Urine Protein Negative (NEGATIVE) 02/02/23 18:20 Urine Glucose (UA) 4+ (NEGATIVE) 02/02/23 18:20 Urine Ketones Negative (NEGATIVE) 02/02/23 18:20 Urine Blood Negative (NEGATIVE) 02/02/23 18:20 Urine Nitrite Negative (NEGATIVE) 02/02/23 18:20 Urine Bilirubin Negative (NEGATIVE) 02/02/23 18:20 Urine Urobilinogen Normal (NORMAL) 02/02/23 18:20 Ur Leukocyte Esterase Negative (NEGATIVE) 02/02/23 18:20 Urine Opiates Screen Negative (NEG=<300) 02/02/23 18:20 Urine Methadone Screen Negative (NEG=<300) 02/02/23 18:20 Ur Barbiturates Screen Negative (NEG=<200) 02/02/23 18:20 Ur Phencyclidine Scrn Negative (NEG=<25) 02/02/23 18:20 Ur Amphetamines Screen Positive (NEG=<1000) 02/02/23 18:20 U Benzodiazepines Scrn Negative (NEG=<200) 02/02/23 18:20 Urine Cocaine Screen Negative (NEG=<300) 02/02/23 18:20 U Marijuana (THC) Screen Negative (NEG=<50) 02/02/23 18:20 Radiology Reviewed: Yes Plan (1) Cellulitis of hand, left: Status: Acute Plan: IV clindamycin and Bactrim. Check ESR and CRP today. There is no abscess seen to do I&D on this time. I will consult Dr. Velarde for surgical evaluation if needed. (2) Cellulitis of forearm, left: Status: Acute Plan: Continue IV clindamycin and Bactrim. (3) Left arm pain: Status: Acute Plan: Pain control. Patient's morphine was increased from 4 mg every 4 hours as needed yesterday to 5 mg every 3 hours as needed. (4) Hypertension: Status: Chronic Plan: Continue patient's lisinopril 5 mg daily and propanolol 2.5 mg twice daily. (5) COPD (chronic obstructive pulmonary disease): Status: Chronic Plan: I will discuss with patient with started him on treatment for this since he is not currently taking anything. (6) Type 2 diabetes mellitus: Status: Acute Plan: Sliding scale regular insulin per protocol. We do not have any Kazano nor Trulicity here in the hospital so we are holding those medications for the patient and I will cover him with Levemir 15 units subcutaneous every 12 hours for improved glycemic control. (7) Hypokalemia: Status: Acute Plan: Potassium/magnesium replacement protocol. (8) Hypomagnesemia: Status: Acute Plan: Potassium/magnesium replacement protocol. (9) Diabetic peripheral neuropathy associated with type 2 diabetes mellitus: Status: Acute Plan: Resume patient's gabapentin 800 mg at bedtime.
--- NOTE | 2023-02-04 15:44 | MRI ---
HISTORYLEFT HAND/FOREARM CELLULITISSTUDYEXT UPPER NON-JOINT W W/O CONCOMPARISONLeft hand radiograph from 02/02/2023TECHNIQUEMultiplanar multisequence MRI of the left upper extremity with and without contrast were obtained. Amount of contrast not recorded at the time of this dictation.[id number] is from the distal forearm through the majority of the hand on the coronal sequences and from the distal carpus to the proximal phalanges on most of the axial sequences. There is failure of fat saturation at the mid to distal phalanges on most fat saturated sequences.Failure of fat saturation on the axial T2 sequence limits evaluation. Lack of fat sat T1 precontrast sequence limits evaluation for true enhancement.There is a moderate amount of soft tissue edema about the hand that appears centered over the metacarpals. There is a moderate carpal joint effusion, partially imaged on image 1 axial STIR. There is a moderate amount of fluid about the thumb extensor pollicis longus tendon seen on image 1 axial STIR. No discernible acute fracture, malalignment, or aggressive osseous lesion. There are small joint effusions at the 2nd and 3rd MCP joints. There is bone marrow edema pattern involving portions of the capitate, trapezoid, hamate, scaphoid, and trapezium image 10 through image 15 coronal PD fat-sat.Various degrees of motion artifact limit evaluation. This exam is not optimized for evaluation of internal derangement of joints.There is heterogeneous T2 signal throughout the 3rd metacarpal. Image 10 coronal PD fat sat. The T1 signal is patchy low signal in this region.IMPRESSIONSignificantly limited study as above.Suspect moderate cellulitis although I cannot properly evaluate for enhancement. Joint effusions at the 2nd and 3rd MCP joints may be reactive but septic joint is not completely excluded. Moderate tenosynovitis at the extensor pollicis longus tendon could be infective or mechanical. Moderate carpal joint effusion.Abnormal PD/STIR bright signal at the 3rd metacarpal may be reactive or due to early osteomyelitis.Bone marrow edema pattern in the carpus is nonspecific and may be degenerative.Electronically signed by: Acosta Shirley (Feb 04, 2023 15:43:05)
[2023-02-04] MEDS ORDERED: BETADINE SOLN ONE (18:07)
[2023-02-04] MEDS ORDERED: MARCAINE/EPINEPHRINE ONE (18:36)
[2023-02-04] MEDS ORDERED: VERSED ONE (18:36)
[2023-02-04] MEDS ORDERED: DIPRIVAN VIAL 20 ML ONE (18:37)
[2023-02-04] MEDS ORDERED: FENTANYL VIAL INJ 100 mcg ONE ×2 (18:37→18:58)
--- NOTE | 2023-02-04 19:10 | OR.IMMED ---
IMMEDIATE POST-OP NOTE Immediate Post-Op Note Pre-Op Diagnosis: cellulitis/abscess dorsum left hand Post-Op Diagnosis: same, " dish water " type drainage with I and D. Procedure: Incise and drain and pack left dorsal hand Description of Procedure: see operative summary Surgeon/Safety And Health Manager: Prachi Findings: as above , cultures obtained Estimated Blood Loss: minimal Complications: none Progress Notes: Return to floor, resume diet, continue Iv antibiotics.
[2023-02-04] MEDS: NEURONTIN CAP 400 MG PO SCH (20:11)
[2023-02-04] MEDS: SNACK - Diabetic Appropriate PO SCH (20:17)
[2023-02-04] MEDS ORDERED: BENADRYL INJ 50 MG VIAL IVP ONE (21:51)
--- NOTE | 2023-02-04 23:58 | DR.CONSULT ---
CONSULT Consultation for Day of: Date: 02/04/23 Chief Complaint Chief Complaint: 51 year old male with history of diabetes who has had multiple abscesses of the skin drained in the past. Presented now after a fall with an abrasion /cut to the left hypothenar eminence. Presented with fever and swollen [place] [id number]. Already has positive blood cultures for coagulase positive staphylococcus . Allergies Allergies Allergy/AdvReac Type Severity Reaction Status Date / Time Penicillins Allergy Verified 12/22/21 17:12 History of Present Illness History of Present Illness: as above Past Medical History Past Medical History: Arthritis, COPD, Diabetes and Hypertension Past Surgical History Surgical History: Other (multiple abscesses drained) Family History Family Medical History: Diabetes Mellitus, Cancer and [place] Social History Does patient currently use any type of tobacco product: No Have you used tobacco products in the last 12 months: No Type of Tobacco Use: None Does any household member use tobacco: No Alcohol Use: None Drug Use: None Medications Home Medications: Penicillins Allergy (Verified 12/22/21 17:12) CONTINUE taking the following medications diclofenac sodium 50 mg tablet,delayed release 1 tab PO PRN PRN 02/02/23 [History] gabapentin 800 mg tablet (Neurontin) 800 mg PO HS 02/02/23 [History] Review of Systems Constitutional: See HPI Eyes: No Symptoms Reported ENT: No Symptoms Reported Respiratory: No Symptoms Reported Cardiovascular: No Symptoms Reported Gastrointestinal: No Symptoms Reported Genitourinary: No Symptoms Reported Musculoskeletal: See HPI Skin: See HPI Neurological: No Symptoms Reported Physical Exam Vital Signs: Temperature 98.9 F Temperature 99.4 F Pulse Rate [Brachial] 96 Pulse Rate 89 Pulse Rate 120 Respiratory Rate 20 Respiratory Rate 20 Blood Pressure [Left Arm] 135/66 Blood Pressure [Right Arm] 155/77 Blood Pressure 151/82 Blood Pressure 142/73 O2 Sat by Pulse Oximetry 98 O2 Sat by Pulse Oximetry 96 MRI shows diffuse swelling dorsal left hand, no obvious abscess, multiple suspicious areas of joint inflammation,no obviou osteomyelitis . Oriented: Normal, Time, Person and Place Eyes: Normal Ear: Normal Nose: Normal Throat: Normal Respiratory: Clear Throughout Cardiovascular: Normal : Normal Auscultation: Bowel Sounds: Normal Palpation: Normal Tenderness: Normal Skin: Other (Significant swelling and redness to the dorsum of the left hand .Area of old injury to the left hypothenar eminence is not red or swollen ) Musculoskeletal: Normal Psychiatric: Normal Mood Description: Calm Affect: Normal Speech Pattern: Clear Plan (1) Cellulitis of hand, left: Status: Acute Narrative Support Text: Will plan incision drainage of the dorsum of the left hand today (2) Cellulitis of forearm, left: Status: Acute (3) Left arm pain: Status: Acute (4) Hypertension: Status: Chronic Plan: home medications (5) COPD (chronic obstructive pulmonary disease): Status: Chronic Plan: home medications (6) Type 2 diabetes mellitus: Status: Acute Plan: home medications (7) Hypokalemia: Status: Acute Plan: replace (8) Hypomagnesemia: Status: Acute Plan: replace (9) Diabetic peripheral neuropathy associated with type 2 diabetes mellitus: Status: Acute
[2023-02-05] MEDS: DILAUDID INJ IVP PRN ×6 (00:45→17:17)
[2023-02-05] MEDS: TYLENOL 325 MG TAB PO PRN (00:46)
[2023-02-05] MEDS: CLEOCIN 300 MG IV PREMIX 300 MG/50 ML BAG IV SCH ×2 (05:08→13:01)
[2023-02-05] MEDS: NovoLIN R (or HumuLIN R) SUBCUT PRN ×3 (06:16→17:17)
[2023-02-05 06:36] LABS: BASOPHILS # (AUTO) 0.1 X10^3/uL (0.0-0.1); BASOPHILS % (AUTO) 0.5 % (0.2-1.0); EOSINOPHILS # (AUTO) 0.1 x10^3/uL (0.0-0.2); EOSINOPHILS % (AUTO) 0.5 % (0.9-2.9); HEMATOCRIT 36.8 % (42.0-54.0); HEMOGLOBIN 12.8 g/dL (13.5-18.0); LYMPHOCYTES # (AUTO) 1.6 X10^3/uL (1.3-2.9); LYMPHOCYTES % (AUTO) 13.1 % (21.0-51.0); MEAN CORPUSCULAR HEMOGLOBIN 28.3 pg (27.0-34.0); MEAN CORPUSCULAR HGB CONC 34.7 g/dL (33.0-35.0); MEAN CORPUSCULAR VOLUME 81.5 fL (80.0-100.0); MEAN PLATELET VOLUME 7.4 fL (7.4-11.0); MONOCYTES # (AUTO) 1.1 x10^3/uL (0.3-0.8); MONOCYTES % (AUTO) 9.4 % (0.0-13.0); NEUTROPHILS # (AUTO) 9.1 x10^3/uL (2.2-4.8); NEUTROPHILS % (AUTO) 76.5 % (42.0-75.0); PLATELET COUNT 371 X10^3/uL (150.0-450.0); RED BLOOD COUNT 4.52 X10^6/uL (4.7-6.0); RED CELL DISTRIBUTION WIDTH 14.7 % (11.6-16.5); WHITE BLOOD COUNT 11.9 X10^3/uL (3.6-10.0)
[2023-02-05] MEDS: K-DUR TAB 20 MEQ PO PRN (08:11)
[2023-02-05] MEDS ORDERED: NORCO 10/325 TAB PO PRN (08:11)
[2023-02-05] MEDS: ZESTRIL TAB 5 MG PO SCH (08:11)
[2023-02-05] MEDS: INDERAL TAB 10 MG PO SCH ×2 (08:11→20:38)
[2023-02-05] MEDS: LEVEMIR SC SCH ×2 (08:14→20:49)
[2023-02-05] MEDS: CIPRO IV 400 MG PREMIX* 400 MG/200 ML IV.SOLN. IV SCH (08:14)
[2023-02-05 08:42] LABS: ALANINE AMINOTRANSFERASE 22 Units/L (12-78); ALBUMIN 2.3 g/dL (3.4-5.0); ALKALINE PHOSPHATASE 98 Units/L (46-116); ASPARTATE AMINO TRANSFERASE 18 Units/L (15-37); BLOOD UREA NITROGEN 8 mg/dL (7-18); CALCIUM 8.5 mg/dL (8.5-10.1); CARBON DIOXIDE 25.8 mmol/L (21-32); CHLORIDE 96 mmol/L (98-107); COR CA(FOR HYPOALB) 9.9 mg/dL (8.5-10.1); COR NA(FOR HYPERGLY) 135 mmol/L (136-145); CREATININE 0.58 mg/dL (0.70-1.30); GLUCOSE 242 mg/dL (65-99); POTASSIUM 3.9 mmol/L (3.5-5.1); SODIUM 132 mmol/L (136-145); TOTAL PROTEIN 7.3 g/dL (6.4-8.2); eGFR NON BLACK RACES > 60 (>60)
[2023-02-05] MEDS: NORCO 10/325 TAB PO PRN ×3 (09:57→19:31)
[2023-02-05] MEDS: MAGNESIUM SULFATE 1 GRAM/100 mL PREMIX 1 G/100 ML BAG IV PRN ×2 (09:57→11:05)
[2023-02-05] MEDS: LOMOTIL PO PRN ×2 (09:57→20:39)
[2023-02-05] MEDS ORDERED: NS 500 ML IV 500 ML IV ONE (10:48)
[2023-02-05] MEDS ORDERED: DILAUDID INJ IVP ONE (13:22)
--- NOTE | 2023-02-05 14:05 | PCM.PROG ---
Progress Note Progress Note for Day of Date of Exam: 02/05/23 Subjective Subjective: Patient is lying in bed this morning. He had an I&D yesterday by Dr. Velarde. They did culture the fluid and he is complaining of fairly significant pain this morning in his hand from the I&D and from the infection. He still currently receiving IV ciprofloxacin and clindamycin. I will adjust his pain medicine this morning and plan on keeping him through the weekend so we can continue to treat the cellulitis with IV antibiotics and follow-up with the wound culture. His ESR has gone slightly up this morning since yesterday could be secondary to the surgery. CRP is not back and is still pending at this time. Past Medical Family Social History Allergies: Allergies Penicillins Allergy (Verified 12/22/21 17:12) Review of Systems ROS: No change since H&P Vital Signs and I&O's Vital Signs: Temperature 98.6 F Temperature 99.4 F Pulse Rate [Brachial] 93 Pulse Rate 89 Pulse Rate 120 Respiratory Rate 22 Respiratory Rate 20 Blood Pressure [Left Arm] 135/66 Blood Pressure [Right Arm] 135/73 Blood Pressure 151/82 Blood Pressure 142/73 O2 Sat by Pulse Oximetry 98 O2 Sat by Pulse Oximetry 96 Intake and Output: Intake & Output 02/03/23 02/04/23 02/05/23 02/06/23 11:59 11:59 11:59 11:59 Intake Total 2655 / 2655 3229 / 3229 2170 / 2170 Output Total 1400 / 1400 3200 / 3200 Balance 2655 / 2655 1829 / 1829 -1030 / -1030 Physical Exam Oriented: Normal, Time, Person and Place Eyes: Normal Ear: Normal Nose: Normal Throat: Normal Respiratory: Normal Cardiovascular: Normal : Normal Auscultation: Bowel Sounds: Normal Tenderness: Normal Skin: Other (Significant swelling and redness to the dorsum of the left hand .Area of old injury to the left hypothenar eminence is not red or swollen ) Musculoskeletal: Normal Psychiatric: Normal Mood Description: Calm Affect: Normal Speech Pattern: Clear and Appropriate Laboratory and Diagnostics Result Diagrams: 02/05/23 05:56 02/05/23 05:56 Labs: 02/02/23 17:37 Blood Blood Culture - Final Staphylococcus Aureus 02/02/23 17:30 Blood Blood Culture - Final Staphylococcus Aureus 02/04/23 18:58 Hand - Left Wound Gram Stain - Final Laboratory WBC 11.9 X10^3/uL (3.6-10.0) H 02/05/23 05:56 RBC 4.52 X10^6/uL (4.7-6.0) L 02/05/23 05:56 Hgb 12.8 g/dL (13.5-18.0) L 02/05/23 05:56 Hct 36.8 % (42.0-54.0) L 02/05/23 05:56 MCV 81.5 fL (80.0-100.0) 02/05/23 05:56 MCH 28.3 pg (27.0-34.0) 02/05/23 05:56 MCHC 34.7 g/dL (33.0-35.0) 02/05/23 05:56 RDW 14.7 % (11.6-16.5) 02/05/23 05:56 Plt Count 371 X10^3/uL (150.0-450.0) 02/05/23 05:56 MPV 7.4 fL (7.4-11.0) 02/05/23 05:56 Neut % (Auto) 76.5 % (42.0-75.0) H 02/05/23 05:56 Lymph % (Auto) 13.1 % (21.0-51.0) L 02/05/23 05:56 [place] % (Auto) 9.4 % (0.0-13.0) 02/05/23 05:56 Eos % (Auto) 0.5 % (0.9-2.9) L 02/05/23 05:56 Baso % (Auto) 0.5 % (0.2-1.0) 02/05/23 05:56 Neut # (Auto) 9.1 x10^3/uL (2.2-4.8) H 02/05/23 05:56 Lymph # (Auto) 1.6 X10^3/uL (1.3-2.9) 02/05/23 05:56 [place] # (Auto) 1.1 x10^3/uL (0.3-0.8) H 02/05/23 05:56 Eos # (Auto) 0.1 x10^3/uL (0.0-0.2) 02/05/23 05:56 Baso # (Auto) 0.1 X10^3/uL (0.0-0.1) 02/05/23 05:56 Absolute Nucleated RBC 0.0 /100WBC 02/05/23 05:56 ESR 104 MM/HOUR (0-15) H 02/05/23 05:56 Sodium 132 mmol/L (136-145) L 02/05/23 05:56 Corrected Sodium 135 mmol/L (136-145) L 02/05/23 05:56 Potassium 3.9 mmol/L (3.5-5.1) 02/05/23 05:56 Chloride 96 mmol/L (98-107) L 02/05/23 05:56 Carbon Dioxide 25.8 mmol/L (21-32) 02/05/23 05:56 BUN 8 mg/dL (7-18) 02/05/23 05:56 Creatinine 0.58 mg/dL (0.70-1.30) L 02/05/23 05:56 Est GFR (MDRD) Af Amer > 60 (>60) 02/05/23 05:56 Est GFR (MDRD) Non-Af > 60 (>60) 02/05/23 05:56 Glucose 242 mg/dL (65-99) H 02/05/23 05:56 POC Glucose (mg/dL) 255 mg/dL (65-99) H 02/05/23 11:18 Lactic Acid 1.2 mmol/L (0.4-2.0) 02/02/23 17:37 Calcium 8.5 mg/dL (8.5-10.1) 02/05/23 05:56 Corrected Calcium 9.9 mg/dL (8.5-10.1) 02/05/23 05:56 Magnesium 1.8 mg/dL (2.0-2.9) L 02/05/23 05:56 Total Bilirubin 0.30 mg/dL (0.2-1.0) 02/05/23 05:56 AST 18 Units/L (15-37) 02/05/23 05:56 ALT 22 Units/L (12-78) 02/05/23 05:56 Alkaline Phosphatase 98 Units/L (46-116) 02/05/23 05:56 C-Reactive Protein 127.10 mg/L (0-3.0) H 02/04/23 05:23 Total Protein 7.3 g/dL (6.4-8.2) 02/05/23 05:56 Albumin 2.3 g/dL (3.4-5.0) L 02/05/23 05:56 Globulin 5.0 g/dL (2.5-4.5) H 02/05/23 05:56 Albumin/Globulin Ratio 0.5 Ratio (1.1-2.1) L 02/05/23 05:56 Specimen Type Clean catch urine 02/02/23 18:20 Urine Color Straw (YELLOW) 02/02/23 18:20 Urine Appearance Clear (CLEAR) 02/02/23 18:20 Urine pH 6.0 (5.0 - 8.0) 02/02/23 18:20 Ur Specific [place] 1.010 (1.000-1.030) 02/02/23 18:20 Urine Protein Negative (NEGATIVE) 02/02/23 18:20 Urine Glucose (UA) 4+ (NEGATIVE) 02/02/23 18:20 Urine Ketones Negative (NEGATIVE) 02/02/23 18:20 Urine Blood Negative (NEGATIVE) 02/02/23 18:20 Urine Nitrite Negative (NEGATIVE) 02/02/23 18:20 Urine Bilirubin Negative (NEGATIVE) 02/02/23 18:20 Urine Urobilinogen Normal (NORMAL) 02/02/23 18:20 Ur Leukocyte Esterase Negative (NEGATIVE) 02/02/23 18:20 Urine Opiates Screen Negative (NEG=<300) 02/02/23 18:20 Urine Methadone Screen Negative (NEG=<300) 02/02/23 18:20 Ur Barbiturates Screen Negative (NEG=<200) 02/02/23 18:20 Ur Phencyclidine Scrn Negative (NEG=<25) 02/02/23 18:20 Ur Amphetamines Screen Positive (NEG=<1000) 02/02/23 18:20 U Benzodiazepines Scrn Negative (NEG=<200) 02/02/23 18:20 Urine Cocaine Screen Negative (NEG=<300) 02/02/23 18:20 U Marijuana (THC) Screen Negative (NEG=<50) 02/02/23 18:20 Radiology Reviewed: Yes Plan (1) Cellulitis of hand, left: Status: Acute Plan: IV clindamycin and Cipro. Check ESR and CRP today and again in the morning. Patient is postop day 1 for I&D of the abscess on the left hand. (2) Cellulitis of forearm, left: Status: Acute Plan: Continue IV clindamycin and Cipro. (3) Left arm pain: Status: Acute Plan: I will add hydrocodone/acetaminophen 10/325 1 to 2 tablets every 4 hours for pain. He has IV Dilaudid to take for as needed pain as well. (4) Hypertension: Status: Chronic Plan: Continue patient's lisinopril 5 mg daily and propanolol 2.5 mg twice daily. (5) COPD (chronic obstructive pulmonary disease): Status: Chronic Plan: I will discuss with patient with started him on treatment for this since he is not currently taking anything. (6) Type 2 diabetes mellitus: Status: Acute Plan: Sliding scale regular insulin per protocol. I will increase his Levemir to 20 units twice daily for increased blood sugar control. (7) Hypokalemia: Status: Acute Plan: Potassium/magnesium replacement protocol. (8) Hypomagnesemia: Status: Acute Plan: Potassium/magnesium replacement protocol. (9) Diabetic peripheral neuropathy associated with type 2 diabetes mellitus: Status: Acute Plan: Resume patient's gabapentin 800 mg at bedtime.
[2023-02-05] MEDS ORDERED: PHARMACY CONSULT - VANCOMYCIN XX SCH (20:00)
[2023-02-05] MEDS: VANCOMYCIN IV *PREMIX 1 G/200 ML BAG 1 G/200 ML PIGGYBACK IV SCH (20:39)
[2023-02-05] MEDS: NEURONTIN CAP 400 MG PO SCH (20:39)
[2023-02-05] MEDS: SNACK - Diabetic Appropriate PO SCH (20:49)
[2023-02-05] MEDS ORDERED: VANCOMYCIN IV *PREMIX 1 G/200 ML BAG 1 G/200 ML PIGGYBACK IV SCH (21:00)
--- NOTE | 2023-02-06 00:37 | NOTE.SOAP ---
Soap Note Note for Day of Date of Exam: 02/05/23 Subjective Data Subjective Data: Did well after drainage of abscess dorsal right hand. Objective Data Temperature: 98.2 F Pulse Rate: 102 Respiratory Rate: 20 Blood Pressure: 110/66 O2 Sat by Pulse Oximetry: 98 Objective Data: Redness not much improved of the right hand. Cultures of blood growin Staphylococcus aureus , not sesitive to antibiotics he is on. Assessment Assessment: Abscess right hand , + blood cultures, s/p incision and drainage of dorsum right hand Plan Plan: Continue dressing changes. Begin IV Vancomycin.
[2023-02-06 05:43] LABS: BASOPHILS % (AUTO) 0.4 % (0.2-1.0); EOSINOPHILS # (AUTO) 0.1 x10^3/uL (0.0-0.2); EOSINOPHILS % (AUTO) 1.4 % (0.9-2.9); HEMATOCRIT 34.3 % (42.0-54.0); HEMOGLOBIN 11.8 g/dL (13.5-18.0); LYMPHOCYTES % (AUTO) 20.2 % (21.0-51.0); MEAN CORPUSCULAR HEMOGLOBIN 27.9 pg (27.0-34.0); MEAN CORPUSCULAR HGB CONC 34.4 g/dL (33.0-35.0); MEAN CORPUSCULAR VOLUME 81.2 fL (80.0-100.0); MEAN PLATELET VOLUME 7.2 fL (7.4-11.0); MONOCYTES # (AUTO) 1.2 x10^3/uL (0.3-0.8); MONOCYTES % (AUTO) 11.5 % (0.0-13.0); NEUTROPHILS # (AUTO) 6.8 x10^3/uL (2.2-4.8); NEUTROPHILS % (AUTO) 66.5 % (42.0-75.0); PLATELET COUNT 453 X10^3/uL (150.0-450.0); RED BLOOD COUNT 4.23 X10^6/uL (4.7-6.0); RED CELL DISTRIBUTION WIDTH 14.8 % (11.6-16.5); WHITE BLOOD COUNT 10.1 X10^3/uL (3.6-10.0)
[2023-02-06 05:49] LABS: ERYTHROCYTE SEDIMENTATION RATE 109 MM/HOUR (0-15)
[2023-02-06 05:53] LABS: ALANINE AMINOTRANSFERASE 21 Units/L (12-78); ALBUMIN 2.2 g/dL (3.4-5.0); ALKALINE PHOSPHATASE 85 Units/L (46-116); ASPARTATE AMINO TRANSFERASE 14 Units/L (15-37); BLOOD UREA NITROGEN 11 mg/dL (7-18); CALCIUM 8.6 mg/dL (8.5-10.1); CARBON DIOXIDE 26.7 mmol/L (21-32); CHLORIDE 100 mmol/L (98-107); COR NA(FOR HYPERGLY) 136 mmol/L (136-145); CREATININE 0.46 mg/dL (0.70-1.30); GLUCOSE 141 mg/dL (65-99); POTASSIUM 3.8 mmol/L (3.5-5.1); SODIUM 135 mmol/L (136-145); TOTAL PROTEIN 7.1 g/dL (6.4-8.2); eGFR NON BLACK RACES > 60 (>60)
[2023-02-06] MEDS: K-DUR TAB 20 MEQ PO PRN (08:58)
[2023-02-06] MEDS: INDERAL TAB 10 MG PO SCH ×2 (08:58→20:32)
[2023-02-06] MEDS: ZESTRIL TAB 5 MG PO SCH (08:58)
[2023-02-06] MEDS: VANCOMYCIN IV *PREMIX 1 G/200 ML BAG 1 G/200 ML PIGGYBACK IV SCH ×2 (08:59→20:33)
[2023-02-06] MEDS: LEVEMIR SC SCH ×2 (08:59→20:34)
[2023-02-06] MEDS: NORCO 10/325 TAB PO PRN ×4 (08:59→20:33)
[2023-02-06] MEDS: DILAUDID INJ IVP PRN ×4 (10:53→23:12)
[2023-02-06] MEDS: NovoLIN R (or HumuLIN R) SUBCUT PRN ×2 (12:00→17:11)
--- NOTE | 2023-02-06 15:31 | PCM.PROG ---
Progress Note - Progress Note for Day of Date of Exam: 02/06/23 - Subjective Subjective: IS A 52 YEAR OLD PATIENT OF . HE IS CURRENTLY INPATIENT STATUS FOR [facility] OF LEFT HAND AND FOREARM CELLULITIS, BACTEREMIA, HYPOKALEMIA, HYPOMAGNESEMIA. HE IS STATUS POST I&D BY . HE HAS A PMH OF HTN, COPD, DM II, AND DIABETID PERIPHERAL NEUROPATHY. HIS BLOOD CULTURES ARE POSITIVE FOR GROWTH OF STAPHYLOCOCCUS AUREUS. HE COMPLAINS OF LEFT HAND PAIN THIS MORNING. UPON EXAMINATION, PATIENT IS ALERT AND ORIENTED, LYING IN BED. HEART IS REGULAR IN RATE AND RHYTHM. BILATERAL LUNGS ARE CLEAR TO AUSCULTATION. ABDOMEN IS ROUND, SOFT, AND NON-TENDER WITH NORMAL BOWEL SOUNDS NOTED IN ALL QUADRANTS. LEFT HAND IS NOTED WITH SIGNIFICANT SWELLING AND REDNESS TO THE DORSU M AOF THE LEFT HAND. GOOD MOVEMENT TO LOWER EXTREMITIES WITH NO SWELLING NOTED. HIS VITALS THIS MORNING ARE: 99.6-100-18-98%-124/67. LABS WERE OBTAINED. WBC 10.1, RBC 4.23, HGB 11.8, HCT 34.3, PLT COUNT 453, SODIUM 135, POTASSIUM 3.8, CHLORIDE 100, BUN 11, CREATININE 0.46, GLUCOSE 141, CALCIUM 8.6, MAGNESIUM 2.0, AST 14, ALT 21, ALK PHOS 85, TOTAL PROTEIN 7.1, ALBUMIN 2.2. HE IS CURRENTLY RECEIVING VANCOMYCIN 1G IV Q12H, OTBS ACHS, HUMULIN R SLIDING SCALE, DILAUDID 2MG IV Q2H PRN, LOMOTIL QID PRN, NORCO 10/325MG Q4H PRN, LEVEMIR 15 UNITS SC BID, ZOFRAN 4MG IV Q6H PRN. HIS HOME MEDICATIONS OF NEURONTIN, ZESTRIL, AND INDERAL WERE RESUMED. WE WILL CONTINUE WITH CURRENT PLAN OF CARE TODAY. OTHE RWISE, WE PLAN TO FOLLOW-UP WITH AM LABS AND CONTINUE TO MONITOR. TIME SPENT ON CLINICAL ASSESSMENT, REVIEWING LABS AND IMAGING, DECISION MAKING, AND DOCUMENTATION GREATER THAN 45 MINUTES. - Past Medical Family Social History Allergies: Allergies Penicillins Allergy (Verified 12/22/21 17:12) - Review of Systems ROS: No change since H&P - Vital Signs and I&O's Vital Signs: Temperature 99.1 F Temperature 98.2 F Pulse Rate [Brachial] 94 Pulse Rate 102 Respiratory Rate 22 Respiratory Rate 20 Blood Pressure [Left Arm] 135/66 Blood Pressure [Right Arm] 123/67 Blood Pressure 110/66 O2 Sat by Pulse Oximetry 98 O2 Sat by Pulse Oximetry 98 Intake and Output: Intake & Output 02/04/23 02/05/23 02/06/23 02/07/23 11:59 11:59 11:59 11:59 Intake Total 3229 / 3229 2170 / 2170 2750 / 2750 240 / 240 Output Total 1400 / 1400 3200 / 3200 2200 / 2200 Balance 1829 / 1829 -1030 / -1030 550 / 550 240 / 240 - Physical Exam Oriented: Normal, Time, Person, Place Eyes: Normal Ear: Normal Nose: Normal Throat: Normal Respiratory: Normal Cardiovascular: Normal : Normal Auscultation: Bowel Sounds: Normal Palpation: Normal Tenderness: Normal Skin: Other (Significant swelling and redness to the dorsum of the left hand .Area of old injury to the left hypothenar eminence is not red or swollen) Musculoskeletal: Normal Psychiatric: Normal Mood Description: Calm Affect: Normal Speech Pattern: Clear, Appropriate - Laboratory and Diagnostics Result Diagrams: 02/06/23 04:43 02/06/23 04:43 Labs: 02/02/23 17:37 Blood Blood Culture - Final Staphylococcus Aureus 02/02/23 17:30 Blood Blood Culture - Final Staphylococcus Aureus 02/04/23 18:58 Hand - Left Wound Gram Stain - Final Laboratory WBC 10.1 X10^3/uL (3.6-10.0) H 02/06/23 04:43 RBC 4.23 X10^6/uL (4.7-6.0) L 02/06/23 04:43 Hgb 11.8 g/dL (13.5-18.0) L 02/06/23 04:43 Hct 34.3 % (42.0-54.0) L 02/06/23 04:43 MCV 81.2 fL (80.0-100.0) 02/06/23 04:43 MCH 27.9 pg (27.0-34.0) 02/06/23 04:43 MCHC 34.4 g/dL (33.0-35.0) 02/06/23 04:43 RDW 14.8 % (11.6-16.5) 02/06/23 04:43 Plt Count 453 X10^3/uL (150.0-450.0) H 02/06/23 04:43 MPV 7.2 fL (7.4-11.0) L 02/06/23 04:43 Neut % (Auto) 66.5 % (42.0-75.0) 02/06/23 04:43 Lymph % (Auto) 20.2 % (21.0-51.0) L 02/06/23 04:43 [place] % (Auto) 11.5 % (0.0-13.0) 02/06/23 04:43 Eos % (Auto) 1.4 % (0.9-2.9) 02/06/23 04:43 Baso % (Auto) 0.4 % (0.2-1.0) 02/06/23 04:43 Neut # (Auto) 6.8 x10^3/uL (2.2-4.8) H 02/06/23 04:43 Lymph # (Auto) 2.0 X10^3/uL (1.3-2.9) 02/06/23 04:43 [place] # (Auto) 1.2 x10^3/uL (0.3-0.8) H 02/06/23 04:43 Eos # (Auto) 0.1 x10^3/uL (0.0-0.2) 02/06/23 04:43 Baso # (Auto) 0.0 X10^3/uL (0.0-0.1) 02/06/23 04:43 Absolute Nucleated RBC 0.0 /100WBC 02/06/23 04:43 ESR 109 MM/HOUR (0-15) H 02/06/23 04:43 Sodium 135 mmol/L (136-145) L 02/06/23 04:43 Corrected Sodium 136 mmol/L (136-145) 02/06/23 04:43 Potassium 3.8 mmol/L (3.5-5.1) 02/06/23 04:43 Chloride 100 mmol/L (98-107) 02/06/23 04:43 Carbon Dioxide 26.7 mmol/L (21-32) 02/06/23 04:43 BUN 11 mg/dL (7-18) 02/06/23 04:43 Creatinine 0.46 mg/dL (0.70-1.30) L 02/06/23 04:43 Est GFR (MDRD) Af Amer > 60 (>60) 02/06/23 04:43 Est GFR (MDRD) Non-Af > 60 (>60) 02/06/23 04:43 Glucose 141 mg/dL (65-99) H 02/06/23 04:43 POC Glucose (mg/dL) 304 mg/dL (65-99) H 02/06/23 11:22 Lactic Acid 1.2 mmol/L (0.4-2.0) 02/02/23 17:37 Calcium 8.6 mg/dL (8.5-10.1) 02/06/23 04:43 Corrected Calcium 10.0 mg/dL (8.5-10.1) 02/06/23 04:43 Magnesium 2.0 mg/dL (2.0-2.9) 02/06/23 04:43 Total Bilirubin 0.20 mg/dL (0.2-1.0) 02/06/23 04:43 AST 14 Units/L (15-37) L 02/06/23 04:43 ALT 21 Units/L (12-78) 02/06/23 04:43 Alkaline Phosphatase 85 Units/L (46-116) 02/06/23 04:43 C-Reactive Protein 127.10 mg/L (0-3.0) H 02/04/23 05:23 Total Protein 7.1 g/dL (6.4-8.2) 02/06/23 04:43 Albumin 2.2 g/dL (3.4-5.0) L 02/06/23 04:43 Globulin 4.9 g/dL (2.5-4.5) H 02/06/23 04:43 Albumin/Globulin Ratio 0.4 Ratio (1.1-2.1) L 02/06/23 04:43 Specimen Type Clean catch urine 02/02/23 18:20 Urine Color Straw (YELLOW) 02/02/23 18:20 Urine Appearance Clear (CLEAR) 02/02/23 18:20 Urine pH 6.0 (5.0 - 8.0) 02/02/23 18:20 Ur Specific [place] 1.010 (1.000-1.030) 02/02/23 18:20 Urine Protein Negative (NEGATIVE) 02/02/23 18:20 Urine Glucose (UA) 4+ (NEGATIVE) 02/02/23 18:20 Urine Ketones Negative (NEGATIVE) 02/02/23 18:20 Urine Blood Negative (NEGATIVE) 02/02/23 18:20 Urine Nitrite Negative (NEGATIVE) 02/02/23 18:20 Urine Bilirubin Negative (NEGATIVE) 02/02/23 18:20 Urine Urobilinogen Normal (NORMAL) 02/02/23 18:20 Ur Leukocyte Esterase Negative (NEGATIVE) 02/02/23 18:20 Urine Opiates Screen Negative (NEG=<300) 02/02/23 18:20 Urine Methadone Screen Negative (NEG=<300) 02/02/23 18:20 Ur Barbiturates Screen Negative (NEG=<200) 02/02/23 18:20 Ur Phencyclidine Scrn Negative (NEG=<25) 02/02/23 18:20 Ur Amphetamines Screen Positive (NEG=<1000) 02/02/23 18:20 U Benzodiazepines Scrn Negative (NEG=<200) 02/02/23 18:20 Urine Cocaine Screen Negative (NEG=<300) 02/02/23 18:20 U Marijuana (THC) Screen Negative (NEG=<50) 02/02/23 18:20 - Plan (1) Cellulitis of hand, left Status: Acute Plan: VANCOMYCIN 1G IV Q12H, OTBS ACHS, HUMULIN R SLIDING SCALE, DILAUDID 2MG IV Q2H PRN, LOMOTIL QID PRN, NORCO 10/325MG Q4H PRN, LEVEMIR 15 UNITS SC BID, ZOFRAN 4MG IV Q6H PRN. (2) Cellulitis of forearm, left Status: Acute (3) Hypomagnesemia Status: Acute Plan: Potassium/magnesium replacement protocol. (4) Hypokalemia Status: Acute Plan: Potassium/magnesium replacement protocol. (5) Left arm pain Status: Acute (6) Diabetic peripheral neuropathy associated with type 2 diabetes mellitus Status: Chronic Plan: Resume patient's gabapentin 800 mg at bedtime. 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 CONTINUE LEVEMIR (8) COPD (chronic obstructive pulmonary disease) Status: Chronic Qualifiers: COPD type: unspecified COPD Qualified Code(s): J44.9 - Chronic obstructive pulmonary disease, unspecified Plan: I will discuss with patient with started him on treatment for this since he is not currently taking anything.
[2023-02-06] MEDS: NEURONTIN CAP 400 MG PO SCH (20:32)
[2023-02-06] MEDS: SNACK - Diabetic Appropriate PO SCH (20:35)
--- NOTE | 2023-02-06 22:48 | NOTE.SOAP ---
Soap Note Note for Day of Date of Exam: 02/06/23 Subjective Data Subjective Data: Abscess left dorsal hand with + blood cultures for MRSA, S/P I and D left hand and now on Vancomycin. Objective Data Temperature: 98.8 F Pulse Rate: 101 Respiratory Rate: 20 Blood Pressure: 125/80 O2 Sat by Pulse Oximetry: 98 Objective Data: Hgb= 11.8, WBC=10.1 Dressing intact left hand Assessment Assessment: Abscess left hand , s/p I& D , + blood cultures for MRSA Plan Plan: Continue IV Vancomycin , change wound packing left hand tomorrow.
[2023-02-07] MEDS: NORCO 10/325 TAB PO PRN ×5 (01:25→20:24)
[2023-02-07 06:30] LABS: BASOPHILS # (AUTO) 0.1 X10^3/uL (0.0-0.1); BASOPHILS % (AUTO) 1.1 % (0.2-1.0); EOSINOPHILS # (AUTO) 0.1 x10^3/uL (0.0-0.2); HEMOGLOBIN 12.3 g/dL (13.5-18.0); LYMPHOCYTES # (AUTO) 2.7 X10^3/uL (1.3-2.9); LYMPHOCYTES % (AUTO) 20.7 % (21.0-51.0); MEAN CORPUSCULAR HEMOGLOBIN 27.7 pg (27.0-34.0); MEAN CORPUSCULAR HGB CONC 34.2 g/dL (33.0-35.0); MEAN CORPUSCULAR VOLUME 81.1 fL (80.0-100.0); NEUTROPHILS # (AUTO) 8.9 x10^3/uL (2.2-4.8); NEUTROPHILS % (AUTO) 69.2 % (42.0-75.0); PLATELET COUNT 581 X10^3/uL (150.0-450.0); RED BLOOD COUNT 4.43 X10^6/uL (4.7-6.0); RED CELL DISTRIBUTION WIDTH 15.1 % (11.6-16.5); WHITE BLOOD COUNT 12.8 X10^3/uL (3.6-10.0)
[2023-02-07 06:39] LABS: ALANINE AMINOTRANSFERASE 27 Units/L (12-78); ALBUMIN 2.3 g/dL (3.4-5.0); ALKALINE PHOSPHATASE 93 Units/L (46-116); ASPARTATE AMINO TRANSFERASE 25 Units/L (15-37); BLOOD UREA NITROGEN 9 mg/dL (7-18); CALCIUM 8.9 mg/dL (8.5-10.1); CARBON DIOXIDE 27.1 mmol/L (21-32); CHLORIDE 95 mmol/L (98-107); COR CA(FOR HYPOALB) 10.3 mg/dL (8.5-10.1); COR NA(FOR HYPERGLY) 132 mmol/L (136-145); GLUCOSE 112 mg/dL (65-99); SODIUM 132 mmol/L (136-145); TOTAL PROTEIN 7.6 g/dL (6.4-8.2); eGFR NON BLACK RACES > 60 (>60)
[2023-02-07] MEDS ORDERED: PHARMACY COMMENT IV ONE (08:30)
[2023-02-07] MEDS: ZESTRIL TAB 5 MG PO SCH (09:11)
[2023-02-07] MEDS: INDERAL TAB 10 MG PO SCH ×2 (09:12→20:23)
[2023-02-07] MEDS: LEVEMIR SC SCH ×2 (09:13→20:34)
[2023-02-07] MEDS: VANCOMYCIN IV *PREMIX 1 G/200 ML BAG 1 G/200 ML PIGGYBACK IV SCH ×3 (09:19→21:10)
--- NOTE | 2023-02-07 10:40 | PCM.PROG ---
Progress Note - Progress Note for Day of Date of Exam: 02/07/23 - Subjective Subjective: IS A 52 YEAR OLD PATIENT OF . HE IS CURRENTLY INPATIENT STATUS FOR [facility] OF LEFT HAND AND FOREARM CELLULITIS, BACTEREMIA, HYPOKALEMIA, HYPOMAGNESEMIA. HE IS STATUS POST I&D BY . HE HAS A PMH OF HTN, COPD, DM II, AND DIABETID PERIPHERAL NEUROPATHY. HIS BLOOD CULTURES ARE POSITIVE FOR GROWTH OF STAPHYLOCOCCUS AUREUS. HE COMPLAINS OF LEFT HAND PAIN THIS MORNING. UPON EXAMINATION, PATIENT IS ALERT AND ORIENTED, LYING IN BED. HE IS SLIGHTLY TACHYCARDIC WITH HR 100-110 BPM. BILATERAL LUNGS ARE CLEAR TO AUSCULTATION. ABDOMEN IS ROUND, SOFT, AND NON-TENDER WITH NORMAL BOWEL SOUNDS NOTED IN ALL QUADRANTS. LEFT HAND IS NOTED WITH SIGNIFICANT SWELLING AND REDNESS TO THE DORSUM OF THE LEFT HAND. GOOD MOVEMENT TO LOWER EXTREMITIES WITH NO SWELLING NOTED. HIS VITALS THIS MORNING ARE: 99.2-107-18-99%-114/63. LABS WERE OBTAINED. WBC 12.8, RBC 4.43, HGB 12.3, HCT 36.0, PLT COUNT 581, SODIUM 132, POTASSIUM 4.0, CHLORIDE 95, BUN 9, CREATININE 0.50, GLUCOSE 112, CALCIUM 8.9, AST 25, ALT 27, ALK PHOS 93, TOTAL PROTEIN 7.6, ALBUMIN 2.3. HE IS CURRENTLY RECEIVING VANCOMYCIN 1G IV Q12H, OTBS ACHS, HUMULIN R SLIDING SCALE, DILAUDID 2MG IV Q2H PRN, LOMOTIL QID PRN, NORCO 10/325MG Q4H PRN, LEVEMIR 15 UNITS SC BID, ZOFRAN 4MG IV Q6H PRN. HIS HOME MEDICATIONS OF NEURONTIN, ZESTRIL, AND INDERAL WERE RESUMED. WE WILL CONTINUE WITH CURRENT PLAN OF CARE TODAY. WILL CONTINUE TO MONITOR HIM WELL. OTHERWISE, WE PLAN TO FOLLOW-UP WITH AM LABS AND CONTINUE TO MONITOR. TIME SPENT ON CLINICAL ASSESSMENT, REVIEWING LABS AND IMAGING, DECISION MAKING, AND DOCUMENTATION GREATER THAN 45 MINUTES. - Past Medical Family Social History Past Med/Fam/Surg Hx: No changes since H&P Allergies: Allergies Penicillins Allergy (Verified 12/22/21 17:12) - Review of Systems ROS: No change since H&P - Vital Signs and I&O's Vital Signs: Temperature 99.2 F Temperature 98.2 F Pulse Rate [Brachial] 107 Pulse Rate 101 Pulse Rate 102 Respiratory Rate 22 Respiratory Rate 20 Blood Pressure [Left Arm] 135/66 Blood Pressure [Right Arm] 114/63 Blood Pressure 125/80 Blood Pressure 110/66 O2 Sat by Pulse Oximetry 99 O2 Sat by Pulse Oximetry 98 Intake and Output: Intake & Output 02/04/23 02/05/23 02/06/23 02/07/23 11:59 11:59 11:59 11:59 Intake Total 3229 / 3229 2170 / 2170 2750 / 2750 2170 / 2170 Output Total 1400 / 1400 3200 / 3200 2200 / 2200 Balance 1829 / 1829 -1030 / -1030 550 / 550 2170 / 2170 - Physical Exam Oriented: Normal, Time, Person, Place Eyes: Normal Ear: Normal Nose: Normal Throat: Normal Respiratory: Normal Cardiovascular: Normal : Normal Auscultation: Bowel Sounds: Normal Palpation: Normal Tenderness: Normal Skin: Other (Significant swelling and redness to the dorsum of the left hand .Area of old injury to the left hypothenar eminence is not red or swollen) Musculoskeletal: Normal Psychiatric: Normal Mood Description: Calm Affect: Normal Speech Pattern: Clear, Appropriate - Laboratory and Diagnostics Result Diagrams: 02/07/23 05:40 02/07/23 05:40 Labs: 02/04/23 18:58 Hand - Left Wound Gram Stain - Final 02/04/23 18:58 Hand - Left Wound Culture - Preliminary Staphylococcus Aureus 02/02/23 17:37 Blood Blood Culture - Final Staphylococcus Aureus 02/02/23 17:30 Blood Blood Culture - Final Staphylococcus Aureus Laboratory WBC 12.8 X10^3/uL (3.6-10.0) H 02/07/23 05:40 RBC 4.43 X10^6/uL (4.7-6.0) L 02/07/23 05:40 Hgb 12.3 g/dL (13.5-18.0) L 02/07/23 05:40 Hct 36.0 % (42.0-54.0) L 02/07/23 05:40 MCV 81.1 fL (80.0-100.0) 02/07/23 05:40 MCH 27.7 pg (27.0-34.0) 02/07/23 05:40 MCHC 34.2 g/dL (33.0-35.0) 02/07/23 05:40 RDW 15.1 % (11.6-16.5) 02/07/23 05:40 Plt Count 581 X10^3/uL (150.0-450.0) H 02/07/23 05:40 MPV 7.0 fL (7.4-11.0) L 02/07/23 05:40 Neut % (Auto) 69.2 % (42.0-75.0) 02/07/23 05:40 Lymph % (Auto) 20.7 % (21.0-51.0) L 02/07/23 05:40 [place] % (Auto) 8.0 % (0.0-13.0) 02/07/23 05:40 Eos % (Auto) 1.0 % (0.9-2.9) 02/07/23 05:40 Baso % (Auto) 1.1 % (0.2-1.0) H 02/07/23 05:40 Neut # (Auto) 8.9 x10^3/uL (2.2-4.8) H 02/07/23 05:40 Lymph # (Auto) 2.7 X10^3/uL (1.3-2.9) 02/07/23 05:40 [place] # (Auto) 1.0 x10^3/uL (0.3-0.8) H 02/07/23 05:40 Eos # (Auto) 0.1 x10^3/uL (0.0-0.2) 02/07/23 05:40 Baso # (Auto) 0.1 X10^3/uL (0.0-0.1) 02/07/23 05:40 Absolute Nucleated RBC 0.1 /100WBC 02/07/23 05:40 ESR 109 MM/HOUR (0-15) H 02/06/23 04:43 Sodium 132 mmol/L (136-145) L 02/07/23 05:40 Corrected Sodium 132 mmol/L (136-145) L 02/07/23 05:40 Potassium 4.0 mmol/L (3.5-5.1) 02/07/23 05:40 Chloride 95 mmol/L (98-107) L 02/07/23 05:40 Carbon Dioxide 27.1 mmol/L (21-32) 02/07/23 05:40 BUN 9 mg/dL (7-18) 02/07/23 05:40 Creatinine 0.50 mg/dL (0.70-1.30) L 02/07/23 05:40 Est GFR (MDRD) Af Amer > 60 (>60) 02/07/23 05:40 Est GFR (MDRD) Non-Af > 60 (>60) 02/07/23 05:40 Glucose 112 mg/dL (65-99) H 02/07/23 05:40 POC Glucose (mg/dL) 122 mg/dL (65-99) H 02/07/23 05:21 Lactic Acid 1.2 mmol/L (0.4-2.0) 02/02/23 17:37 Calcium 8.9 mg/dL (8.5-10.1) 02/07/23 05:40 Corrected Calcium 10.3 mg/dL (8.5-10.1) H 02/07/23 05:40 Magnesium 2.0 mg/dL (2.0-2.9) 02/06/23 04:43 Total Bilirubin 0.20 mg/dL (0.2-1.0) 02/07/23 05:40 AST 25 Units/L (15-37) 02/07/23 05:40 ALT 27 Units/L (12-78) 02/07/23 05:40 Alkaline Phosphatase 93 Units/L (46-116) 02/07/23 05:40 C-Reactive Protein 127.10 mg/L (0-3.0) H 02/04/23 05:23 Total Protein 7.6 g/dL (6.4-8.2) 02/07/23 05:40 Albumin 2.3 g/dL (3.4-5.0) L 02/07/23 05:40 Globulin 5.3 g/dL (2.5-4.5) H 02/07/23 05:40 Albumin/Globulin Ratio 0.4 Ratio (1.1-2.1) L 02/07/23 05:40 Specimen Type Clean catch urine 02/02/23 18:20 Urine Color Straw (YELLOW) 02/02/23 18:20 Urine Appearance Clear (CLEAR) 02/02/23 18:20 Urine pH 6.0 (5.0 - 8.0) 02/02/23 18:20 Ur Specific Pollock 1.010 (1.000-1.030) 02/02/23 18:20 Urine Protein Negative (NEGATIVE) 02/02/23 18:20 Urine Glucose (UA) 4+ (NEGATIVE) 02/02/23 18:20 Urine Ketones Negative (NEGATIVE) 02/02/23 18:20 Urine Blood Negative (NEGATIVE) 02/02/23 18:20 Urine Nitrite Negative (NEGATIVE) 02/02/23 18:20 Urine Bilirubin Negative (NEGATIVE) 02/02/23 18:20 Urine Urobilinogen Normal (NORMAL) 02/02/23 18:20 Ur Leukocyte Esterase Negative (NEGATIVE) 02/02/23 18:20 Random Vancomycin 3.8 ug/mL 02/07/23 08:15 Urine Opiates Screen Negative (NEG=<300) 02/02/23 18:20 Urine Methadone Screen Negative (NEG=<300) 02/02/23 18:20 Ur Barbiturates Screen Negative (NEG=<200) 02/02/23 18:20 Ur Phencyclidine Scrn Negative (NEG=<25) 02/02/23 18:20 Ur Amphetamines Screen Positive (NEG=<1000) 02/02/23 18:20 U Benzodiazepines Scrn Negative (NEG=<200) 02/02/23 18:20 Urine Cocaine Screen Negative (NEG=<300) 02/02/23 18:20 U Marijuana (THC) Screen Negative (NEG=<50) 02/02/23 18:20 - Plan (1) Cellulitis of hand, left Status: Acute Plan: VANCOMYCIN 1G IV Q12H, OTBS ACHS, HUMULIN R SLIDING SCALE, DILAUDID 2MG IV Q2H PRN, LOMOTIL QID PRN, NORCO 10/325MG Q4H PRN, LEVEMIR 15 UNITS SC BID, ZOFRAN 4MG IV Q6H PRN. (2) Cellulitis of forearm, left Status: Acute Plan: Continue IV clindamycin and Cipro. (3) Hypomagnesemia Status: Acute Plan: Potassium/magnesium replacement protocol. (4) Hypokalemia Status: Acute Plan: Potassium/magnesium replacement protocol. (5) Left arm pain Status: Acute Plan: I will add hydrocodone/acetaminophen 10/325 1 to 2 tablets every 4 hours for pain. He has IV Dilaudid to take for as needed pain as well. (6) Diabetic peripheral neuropathy associated with type 2 diabetes mellitus Status: Chronic Plan: Resume patient's gabapentin 800 mg at bedtime. 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 CONTINUE LEVEMIR (8) COPD (chronic obstructive pulmonary disease) Status: Chronic Qualifiers: COPD type: unspecified COPD Qualified Code(s): J44.9 - Chronic obstructive pulmonary disease, unspecified Plan: I will discuss with patient with started him on treatment for this since he is not currently taking anything.
[2023-02-07] MEDS: DILAUDID INJ IVP PRN ×2 (11:20→23:02)
[2023-02-07] MEDS: NovoLIN R (or HumuLIN R) SUBCUT PRN ×2 (11:52→17:33)
--- NOTE | 2023-02-07 12:15 | DR.OPNOTE ---
OP NOTE Pre-Op Diagnosis: Abscess left dorsal hand , + blood cultures Post-Op Diagnosis: same Procedure Date Date Of Procedure: 02/04/23 Procedure: PROCEDURE : INCISION AND DRAINAGE OF ABSCESS OF DORSAL LEFT HAND NARRATIVE : The patient was taken to the operating suite and placed in the supine position and the entire left hand prepped and draped in sterile fashion. Time out for the procedure obtained . Vertical incision planned over the dors um of the left hand between the long finger metatarsal and the 4th metatarsal by injecting 0.5% Marcaine and 5 cm incision made . "[facility] Water" looking pus noted and culture obtained . Incision made into the deep muscle layer . 1 inch Nu gauze packing packed in the wound. Covered with 4x4's, Kerlix and 6 inch Gurpreet wrap. Taken to floor in good condition. Type of Anesthesia: Local (0.5% Marcaine) Anesthesia Comment: plus MAC Findings: Abscess dorsal right hand Specimen/Pathology: cultures of abscess Type of Fluids Used:: Lactated Ringers EBL: minimal Cultures: of abscess left dorsal hand abscess Complications:: none Needle/Sponge Count:: correct Disposition/Condition: Pt. tolerated procedure without difficulty. Taken back to his room in stable condition.
[2023-02-07] MEDS: NEURONTIN CAP 400 MG PO SCH (20:23)
[2023-02-07] MEDS: SNACK - Diabetic Appropriate PO SCH (20:34)
--- NOTE | 2023-02-07 23:30 | NOTE.SOAP ---
Soap Note Note for Day of Date of Exam: 02/07/23 Subjective Data Subjective Data: Left hand feels better . On IV Vancomycin for MRSA positive blood cultures. Objective Data Temperature: 98.6 F Pulse Rate: 101 Respiratory Rate: 20 Blood Pressure: 113/59 O2 Sat by Pulse Oximetry: 99 Objective Data: No significant drainage left hand. Assessment Assessment: Abscess dorsal left hand with + blood culture for MRSA. Plan Plan: Continue IV Vancomycin and dressing changes right hand.
[2023-02-08] MEDS: DILAUDID INJ IVP PRN ×7 (03:00→18:01)
[2023-02-08] MEDS ORDERED: PHARMACY COMMENT IV ONE (05:30)
[2023-02-08] MEDS: NovoLIN R (or HumuLIN R) SUBCUT PRN ×3 (05:34→16:55)
[2023-02-08] MEDS: NORCO 10/325 TAB PO PRN ×3 (05:42→16:56)
[2023-02-08 06:21] LABS: HEMOGLOBIN 12.1 g/dL (13.5-18.0)
[2023-02-08 06:28] LABS: ALANINE AMINOTRANSFERASE 27 Units/L (12-78); ALBUMIN 2.2 g/dL (3.4-5.0); ALKALINE PHOSPHATASE 87 Units/L (46-116); ASPARTATE AMINO TRANSFERASE 17 Units/L (15-37); BLOOD UREA NITROGEN 11 mg/dL (7-18); CALCIUM 8.5 mg/dL (8.5-10.1); CHLORIDE 95 mmol/L (98-107); COR CA(FOR HYPOALB) 9.9 mg/dL (8.5-10.1); COR NA(FOR HYPERGLY) 134 mmol/L (136-145); CREATININE 0.59 mg/dL (0.70-1.30); GLUCOSE 212 mg/dL (65-99); POTASSIUM 4.4 mmol/L (3.5-5.1); SODIUM 131 mmol/L (136-145); TOTAL PROTEIN 7.3 g/dL (6.4-8.2); eGFR NON BLACK RACES > 60 (>60)
[2023-02-08 06:29] LABS: BASOPHILS # (AUTO) 0.1 X10^3/uL (0.0-0.1); BASOPHILS % (AUTO) 0.8 % (0.2-1.0); EOSINOPHILS # (AUTO) 0.1 x10^3/uL (0.0-0.2); EOSINOPHILS % (AUTO) 1.1 % (0.9-2.9); HEMATOCRIT 34.8 % (42.0-54.0); LYMPHOCYTES # (AUTO) 2.1 X10^3/uL (1.3-2.9); LYMPHOCYTES % (AUTO) 19.5 % (21.0-51.0); MEAN CORPUSCULAR HEMOGLOBIN 28.4 pg (27.0-34.0); MEAN CORPUSCULAR HGB CONC 34.8 g/dL (33.0-35.0); MEAN CORPUSCULAR VOLUME 81.4 fL (80.0-100.0); MEAN PLATELET VOLUME 6.7 fL (7.4-11.0); MONOCYTES # (AUTO) 1.1 x10^3/uL (0.3-0.8); MONOCYTES % (AUTO) 9.6 % (0.0-13.0); NEUTROPHILS # (AUTO) 7.5 x10^3/uL (2.2-4.8); PLATELET COUNT 549 X10^3/uL (150.0-450.0); RED BLOOD COUNT 4.28 X10^6/uL (4.7-6.0); RED CELL DISTRIBUTION WIDTH 15.3 % (11.6-16.5)
[2023-02-08] MEDS: VANCOMYCIN IV *PREMIX 1 G/200 ML BAG 1 G/200 ML PIGGYBACK IV SCH ×2 (07:13→13:16)
[2023-02-08] MEDS: LEVEMIR SC SCH ×3 (08:09→21:13)
[2023-02-08] MEDS: ZESTRIL TAB 5 MG PO SCH (08:10)
[2023-02-08] MEDS: INDERAL TAB 10 MG PO SCH ×2 (08:10→21:12)
--- NOTE | 2023-02-08 08:45 | PCM.PROG ---
Progress Note Progress Note for Day of Date of Exam: 02/08/23 Subjective Subjective: Patient is resting comfortably in bed this morning. He reports his pain is improved overall. Blood cultures and I&D have grown out coagulase positive Staphylococcus aureus. It is sensitive to IV vancomycin. MRI shows possible reactive bone versus early osteomyelitis. I will discuss with surgeon, Dr. Velarde to see if he wants to proceed with a PICC line and get the patient 6 weeks of IV antibiotic therapy with vancomycin. Regarding the patient's diabetes his blood sugars have been elevated so I will increase his Levemir from 15 units twice daily to 25 units twice daily. Past Medical Family Social History Past Med/Fam/Surg Hx: No changes since H&P Allergies: Allergies Penicillins Allergy (Verified 12/22/21 17:12) Review of Systems ROS: No change since H&P Vital Signs and I&O's Vital Signs: Temperature 98.8 F Temperature 98.6 F Pulse Rate [Brachial] 107 Pulse Rate 101 Respiratory Rate 18 Respiratory Rate 20 Blood Pressure [Left Arm] 135/66 Blood Pressure [Right Arm] 131/66 Blood Pressure 113/59 O2 Sat by Pulse Oximetry 99 O2 Sat by Pulse Oximetry 99 Intake and Output: Intake & Output 02/05/23 02/06/23 02/07/23 02/08/23 11:59 11:59 11:59 11:59 Intake Total 2170 / 2170 2750 / 2750 2170 / 2170 1702 / 1702 Output Total 3200 / 3200 2200 / 2200 Balance -1030 / -1030 550 / 550 2170 / 2170 1702 / 1702 Physical Exam Oriented: Normal, Time, Person and Place Eyes: Normal Ear: Normal Nose: Normal Throat: Normal Respiratory: Normal Cardiovascular: Normal : Normal Auscultation: Bowel Sounds: Normal Tenderness: Normal Skin: Other (Significant swelling and redness to the dorsum of the left hand .Area of old injury to the left hypothenar eminence is not red or swollen ) Musculoskeletal: Normal Psychiatric: Normal Mood Description: Calm Affect: Normal Speech Pattern: Clear and Appropriate Laboratory and Diagnostics Result Diagrams: 02/08/23 05:58 02/08/23 05:58 Labs: 02/04/23 18:58 Hand - Left Wound Gram Stain - Final 02/04/23 18:58 Hand - Left Wound Culture - Preliminary Staphylococcus Aureus 02/02/23 17:37 Blood Blood Culture - Final Staphylococcus Aureus 02/02/23 17:30 Blood Blood Culture - Final Staphylococcus Aureus Laboratory WBC 11.0 X10^3/uL (3.6-10.0) H 02/08/23 05:58 RBC 4.28 X10^6/uL (4.7-6.0) L 02/08/23 05:58 Hgb 12.1 g/dL (13.5-18.0) L 02/08/23 05:58 Hct 34.8 % (42.0-54.0) L 02/08/23 05:58 MCV 81.4 fL (80.0-100.0) 02/08/23 05:58 MCH 28.4 pg (27.0-34.0) 02/08/23 05:58 MCHC 34.8 g/dL (33.0-35.0) 02/08/23 05:58 RDW 15.3 % (11.6-16.5) 02/08/23 05:58 Plt Count 549 X10^3/uL (150.0-450.0) H 02/08/23 05:58 MPV 6.7 fL (7.4-11.0) L 02/08/23 05:58 Neut % (Auto) 69.0 % (42.0-75.0) 02/08/23 05:58 Lymph % (Auto) 19.5 % (21.0-51.0) L 02/08/23 05:58 [place] % (Auto) 9.6 % (0.0-13.0) 02/08/23 05:58 Eos % (Auto) 1.1 % (0.9-2.9) 02/08/23 05:58 Baso % (Auto) 0.8 % (0.2-1.0) 02/08/23 05:58 Neut # (Auto) 7.5 x10^3/uL (2.2-4.8) H 02/08/23 05:58 Lymph # (Auto) 2.1 X10^3/uL (1.3-2.9) 02/08/23 05:58 [place] # (Auto) 1.1 x10^3/uL (0.3-0.8) H 02/08/23 05:58 Eos # (Auto) 0.1 x10^3/uL (0.0-0.2) 02/08/23 05:58 Baso # (Auto) 0.1 X10^3/uL (0.0-0.1) 02/08/23 05:58 Absolute Nucleated RBC 0.1 /100WBC 02/08/23 05:58 ESR 109 MM/HOUR (0-15) H 02/06/23 04:43 Sodium 131 mmol/L (136-145) L 02/08/23 05:58 Corrected Sodium 134 mmol/L (136-145) L 02/08/23 05:58 Potassium 4.4 mmol/L (3.5-5.1) 02/08/23 05:58 Chloride 95 mmol/L (98-107) L 02/08/23 05:58 Carbon Dioxide 30.0 mmol/L (21-32) 02/08/23 05:58 BUN 11 mg/dL (7-18) 02/08/23 05:58 Creatinine 0.59 mg/dL (0.70-1.30) L 02/08/23 05:58 Est GFR (MDRD) Af Amer > 60 (>60) 02/08/23 05:58 Est GFR (MDRD) Non-Af > 60 (>60) 02/08/23 05:58 Glucose 212 mg/dL (65-99) H 02/08/23 05:58 POC Glucose (mg/dL) 202 mg/dL (65-99) H 02/08/23 05:22 Lactic Acid 1.2 mmol/L (0.4-2.0) 02/02/23 17:37 Calcium 8.5 mg/dL (8.5-10.1) 02/08/23 05:58 Corrected Calcium 9.9 mg/dL (8.5-10.1) 02/08/23 05:58 Magnesium 2.0 mg/dL (2.0-2.9) 02/06/23 04:43 Total Bilirubin 0.20 mg/dL (0.2-1.0) 02/08/23 05:58 AST 17 Units/L (15-37) 02/08/23 05:58 ALT 27 Units/L (12-78) 02/08/23 05:58 Alkaline Phosphatase 87 Units/L (46-116) 02/08/23 05:58 C-Reactive Protein 127.10 mg/L (0-3.0) H 02/04/23 05:23 Total Protein 7.3 g/dL (6.4-8.2) 02/08/23 05:58 Albumin 2.2 g/dL (3.4-5.0) L 02/08/23 05:58 Globulin 5.1 g/dL (2.5-4.5) H 02/08/23 05:58 Albumin/Globulin Ratio 0.4 Ratio (1.1-2.1) L 02/08/23 05:58 Specimen Type Clean catch urine 02/02/23 18:20 Urine Color Straw (YELLOW) 02/02/23 18:20 Urine Appearance Clear (CLEAR) 02/02/23 18:20 Urine pH 6.0 (5.0 - 8.0) 02/02/23 18:20 Ur Specific [place] 1.010 (1.000-1.030) 02/02/23 18:20 Urine Protein Negative (NEGATIVE) 02/02/23 18:20 Urine Glucose (UA) 4+ (NEGATIVE) 02/02/23 18:20 Urine Ketones Negative (NEGATIVE) 02/02/23 18:20 Urine Blood Negative (NEGATIVE) 02/02/23 18:20 Urine Nitrite Negative (NEGATIVE) 02/02/23 18:20 Urine Bilirubin Negative (NEGATIVE) 02/02/23 18:20 Urine Urobilinogen Normal (NORMAL) 02/02/23 18:20 Ur Leukocyte Esterase Negative (NEGATIVE) 02/02/23 18:20 Random Vancomycin 8.7 ug/mL 02/08/23 05:58 Urine Opiates Screen Negative (NEG=<300) 02/02/23 18:20 Urine Methadone Screen Negative (NEG=<300) 02/02/23 18:20 Ur Barbiturates Screen Negative (NEG=<200) 02/02/23 18:20 Ur Phencyclidine Scrn Negative (NEG=<25) 02/02/23 18:20 Ur Amphetamines Screen Positive (NEG=<1000) 02/02/23 18:20 U Benzodiazepines Scrn Negative (NEG=<200) 02/02/23 18:20 Urine Cocaine Screen Negative (NEG=<300) 02/02/23 18:20 U Marijuana (THC) Screen Negative (NEG=<50) 02/02/23 18:20 Acetone, Semi-Quant Negative (NEGATIVE) 02/07/23 08:15 Plan (1) Cellulitis of hand, left: Status: Acute Plan: VANCOMYCIN 1G IV Q12H, OTBS ACHS, HUMULIN R SLIDING SCALE, DILAUDID 2MG IV Q2H PRN, LOMOTIL QID PRN, NORCO 10/325MG Q4H PRN, LEVEMIR 15 UNITS SC BID, ZOFRAN 4MG IV Q6H PRN. (2) Cellulitis of forearm, left: Status: Acute Plan: Vancomycin and clindamycin were discontinued and vancomycin was started over the past week and after cultures came back. (3) Hypomagnesemia: Status: Acute Plan: Potassium/magnesium replacement protocol. (4) Hypokalemia: Status: Acute Plan: Potassium/magnesium replacement protocol. (5) Left arm pain: Status: Acute Plan: I will add hydrocodone/acetaminophen 10/325 1 to 2 tablets every 4 hours for pain. He has IV Dilaudid to take for as needed pain as well. 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 CONTINUE LEVEMIR (8) COPD (chronic obstructive pulmonary disease): Status: Chronic Qualifiers: COPD type: unspecified COPD Qualified Code(s): J44.9 - Chronic obstructive pulmonary disease, unspecified Plan: I will discuss with patient with started him on treatment for this since he is not currently taking anything.
[2023-02-08] MEDS ORDERED: DILAUDID INJ IVP ONE (09:40)
[2023-02-08] MEDS ORDERED: LEVAQUIN PREMIX IV 500 MG 500 MG/100 ML BAG IV ONE ×2 (15:21→15:28)
[2023-02-08] MEDS ORDERED: LEVAQUIN PREMIX IV 750 MG 750 MG/150 ML BAG IV SCH (16:00)
[2023-02-08] MEDS ORDERED: LEVAQUIN PREMIX IV 250 MG 250 MG/50 ML BAG IV NR (17:00)
[2023-02-08] MEDS: SNACK - Diabetic Appropriate PO SCH (21:12)
[2023-02-08] MEDS: NEURONTIN CAP 400 MG PO SCH (21:12)
--- NOTE | 2023-02-08 23:33 | NOTE.SOAP ---
Soap Note Note for Day of Date of Exam: 02/08/23 Subjective Data Subjective Data: + blood cultures MSSA and left hand dorsal abscess Objective Data Temperature: 98.5 F Pulse Rate: 113 Respiratory Rate: 18 Blood Pressure: 115/63 O2 Sat by Pulse Oximetry: 96 Objective Data: Wound repacked left hand.Redness now much improved since Vancomycin started. Question of osteomyelitis left hand . Assessment Assessment: Abscess left dorsal hand with + blood cultures for MSSA Plan Plan: Continue IV antibiotics, change to IV Zosyn. Obtain Echo to r/o vegetations to aortic valve .
[2023-02-09] MEDS ORDERED: HIBICLENS WASH EXT PRN (05:25)
[2023-02-09] MEDS: NORCO 10/325 TAB PO PRN ×3 (05:49→22:25)
[2023-02-09 06:48] LABS: BASOPHILS # (AUTO) 0.1 X10^3/uL (0.0-0.1); BASOPHILS % (AUTO) 1.3 % (0.2-1.0); EOSINOPHILS # (AUTO) 0.2 x10^3/uL (0.0-0.2); EOSINOPHILS % (AUTO) 2.1 % (0.9-2.9); HEMOGLOBIN 11.5 g/dL (13.5-18.0); LYMPHOCYTES # (AUTO) 2.7 X10^3/uL (1.3-2.9); LYMPHOCYTES % (AUTO) 24.2 % (21.0-51.0); MEAN CORPUSCULAR HEMOGLOBIN 28.5 pg (27.0-34.0); MEAN CORPUSCULAR HGB CONC 34.7 g/dL (33.0-35.0); MONOCYTES # (AUTO) 1.4 x10^3/uL (0.3-0.8); MONOCYTES % (AUTO) 12.1 % (0.0-13.0); NEUTROPHILS # (AUTO) 6.8 x10^3/uL (2.2-4.8); NEUTROPHILS % (AUTO) 60.3 % (42.0-75.0); PLATELET COUNT 671 X10^3/uL (150.0-450.0); RED BLOOD COUNT 4.02 X10^6/uL (4.7-6.0); RED CELL DISTRIBUTION WIDTH 14.8 % (11.6-16.5); WHITE BLOOD COUNT 11.2 X10^3/uL (3.6-10.0)
[2023-02-09 06:57] LABS: ALANINE AMINOTRANSFERASE 24 Units/L (12-78); ALBUMIN 2.3 g/dL (3.4-5.0); ALKALINE PHOSPHATASE 85 Units/L (46-116); ASPARTATE AMINO TRANSFERASE 13 Units/L (15-37); BLOOD UREA NITROGEN 11 mg/dL (7-18); CARBON DIOXIDE 27.3 mmol/L (21-32); CHLORIDE 97 mmol/L (98-107); COR CA(FOR HYPOALB) 10.4 mg/dL (8.5-10.1); COR NA(FOR HYPERGLY) 134 mmol/L (136-145); CREATININE 0.45 mg/dL (0.70-1.30); GLUCOSE 132 mg/dL (65-99); POTASSIUM 4.3 mmol/L (3.5-5.1); SODIUM 133 mmol/L (136-145); TOTAL PROTEIN 7.5 g/dL (6.4-8.2); eGFR NON BLACK RACES > 60 (>60)
[2023-02-09 07:31] LABS: ERYTHROCYTE SEDIMENTATION RATE 104 MM/HOUR (0-15)
[2023-02-09 07:49] LABS: PLATELET MORPHOLOGY COMMENT NORMAL (NORMAL)
--- NOTE | 2023-02-09 08:27 | PCM.PROG ---
Progress Note Progress Note for Day of Date of Exam: 02/09/23 Subjective Subjective: Patient is resting comfortably in bed this morning. He reports his pain is improved overall. Blood cultures and I&D have grown out coagulase positive Staphylococcus aureus. He currently is receiving IV Levaquin 750 mg IV daily since he had a FERNANDO of less than 1. Patient is getting echocardiogram today to rule out bacterial endocarditis and if the echo does not show anything we will proceed to a BHARATI but assistant statistician, Dr. Jurado. We will plan on repeating an MRI later in the week to see if there is any change and possible reactive bone versus early osteomyelitis. Placing a PICC line in this patient would be high risk for intravenous drug abuse since he has a long history of this in the past. Past Medical Family Social History Past Med/Fam/Surg Hx: No changes since H&P Allergies: Allergies Penicillins Allergy (Verified 12/22/21 17:12) Review of Systems ROS: No change since H&P Vital Signs and I&O's Vital Signs: Temperature 98.8 F Temperature 98.6 F Pulse Rate [Brachial] 90 Pulse Rate 113 Pulse Rate 101 Respiratory Rate 18 Respiratory Rate 20 Blood Pressure [Left Arm] 135/66 Blood Pressure [Right Arm] 105/56 Blood Pressure 115/63 Blood Pressure 113/59 O2 Sat by Pulse Oximetry 97 O2 Sat by Pulse Oximetry 99 Intake and Output: Intake & Output 02/06/23 02/07/23 02/08/23 02/09/23 11:59 11:59 11:59 11:59 Intake Total 2750 / 2750 2170 / 2170 1702 / 1702 1942 Output Total 2200 / 2200 Balance 550 / 550 2170 / 2170 2 / 1702 1942 Physical Exam Oriented: Normal, Time, Person and Place Eyes: Normal Ear: Normal Nose: Normal Throat: Normal Respiratory: Normal Cardiovascular: Normal : Normal Auscultation: Bowel Sounds: Normal Tenderness: Normal Skin: Other (Significant swelling and redness to the dorsum of the left hand .Area of old injury to the left hypothenar eminence is not red or swollen ) Musculoskeletal: Normal Psychiatric: Normal Mood Description: Calm Affect: Normal Speech Pattern: Clear and Appropriate Laboratory and Diagnostics Result Diagrams: 02/09/23 05:56 02/09/23 05:56 Labs: 02/04/23 18:58 Hand - Left Wound Gram Stain - Final 02/04/23 18:58 Hand - Left Wound Culture - Final Staphylococcus Aureus 02/02/23 17:37 Blood Blood Culture - Final Staphylococcus Aureus 02/02/23 17:30 Blood Blood Culture - Final Staphylococcus Aureus Laboratory WBC 11.2 X10^3/uL (3.6-10.0) H 02/09/23 05:56 RBC 4.02 X10^6/uL (4.7-6.0) L 02/09/23 05:56 Hgb 11.5 g/dL (13.5-18.0) L 02/09/23 05:56 Hct 33.0 % (42.0-54.0) L 02/09/23 05:56 MCV 82.0 fL (80.0-100.0) 02/09/23 05:56 MCH 28.5 pg (27.0-34.0) 02/09/23 05:56 MCHC 34.7 g/dL (33.0-35.0) 02/09/23 05:56 RDW 14.8 % (11.6-16.5) 02/09/23 05:56 Plt Count 671 X10^3/uL (150.0-450.0) H 02/09/23 05:56 Plt Count Comment Increased (ADEQUATE) 02/09/23 05:56 MPV 7.0 fL (7.4-11.0) L 02/09/23 05:56 Neut % (Auto) 60.3 % (42.0-75.0) 02/09/23 05:56 Lymph % (Auto) 24.2 % (21.0-51.0) 02/09/23 05:56 [place] % (Auto) 12.1 % (0.0-13.0) 02/09/23 05:56 Eos % (Auto) 2.1 % (0.9-2.9) 02/09/23 05:56 Baso % (Auto) 1.3 % (0.2-1.0) H 02/09/23 05:56 Neut # (Auto) 6.8 x10^3/uL (2.2-4.8) H 02/09/23 05:56 Lymph # (Auto) 2.7 X10^3/uL (1.3-2.9) 02/09/23 05:56 [place] # (Auto) 1.4 x10^3/uL (0.3-0.8) H 02/09/23 05:56 Eos # (Auto) 0.2 x10^3/uL (0.0-0.2) 02/09/23 05:56 Baso # (Auto) 0.1 X10^3/uL (0.0-0.1) 02/09/23 05:56 Absolute Nucleated RBC 0.3 /100WBC 02/09/23 05:56 Plt Morphology Comment Normal (NORMAL) 02/09/23 05:56 RBC Morphology Normal (NORMAL) 02/09/23 05:56 ESR 104 MM/HOUR (0-15) H 02/09/23 05:56 Sodium 133 mmol/L (136-145) L 02/09/23 05:56 Corrected Sodium 134 mmol/L (136-145) L 02/09/23 05:56 Potassium 4.3 mmol/L (3.5-5.1) 02/09/23 05:56 Chloride 97 mmol/L (98-107) L 02/09/23 05:56 Carbon Dioxide 27.3 mmol/L (21-32) 02/09/23 05:56 BUN 11 mg/dL (7-18) 02/09/23 05:56 Creatinine 0.45 mg/dL (0.70-1.30) L 02/09/23 05:56 Est GFR (MDRD) Af Amer > 60 (>60) 02/09/23 05:56 Est GFR (MDRD) Non-Af > 60 (>60) 02/09/23 05:56 Glucose 132 mg/dL (65-99) H 02/09/23 05:56 POC Glucose (mg/dL) 113 mg/dL (65-99) H 02/09/23 05:31 Lactic Acid 1.2 mmol/L (0.4-2.0) 02/02/23 17:37 Calcium 9.0 mg/dL (8.5-10.1) 02/09/23 05:56 Corrected Calcium 10.4 mg/dL (8.5-10.1) H 02/09/23 05:56 Magnesium 2.0 mg/dL (2.0-2.9) 02/06/23 04:43 Total Bilirubin 0.20 mg/dL (0.2-1.0) 02/09/23 05:56 AST 13 Units/L (15-37) L 02/09/23 05:56 ALT 24 Units/L (12-78) 02/09/23 05:56 Alkaline Phosphatase 85 Units/L (46-116) 02/09/23 05:56 C-Reactive Protein 46.70 mg/L (0-3.0) H 02/09/23 05:56 Total Protein 7.5 g/dL (6.4-8.2) 02/09/23 05:56 Albumin 2.3 g/dL (3.4-5.0) L 02/09/23 05:56 Globulin 5.2 g/dL (2.5-4.5) H 02/09/23 05:56 Albumin/Globulin Ratio 0.4 Ratio (1.1-2.1) L 02/09/23 05:56 Specimen Type Clean catch urine 02/02/23 18:20 Urine Color Straw (YELLOW) 02/02/23 18:20 Urine Appearance Clear (CLEAR) 02/02/23 18:20 Urine pH 6.0 (5.0 - 8.0) 02/02/23 18:20 Ur Specific [place] 1.010 (1.000-1.030) 02/02/23 18:20 Urine Protein Negative (NEGATIVE) 02/02/23 18:20 Urine Glucose (UA) 4+ (NEGATIVE) 02/02/23 18:20 Urine Ketones Negative (NEGATIVE) 02/02/23 18:20 Urine Blood Negative (NEGATIVE) 02/02/23 18:20 Urine Nitrite Negative (NEGATIVE) 02/02/23 18:20 Urine Bilirubin Negative (NEGATIVE) 02/02/23 18:20 Urine Urobilinogen Normal (NORMAL) 02/02/23 18:20 Ur Leukocyte Esterase Negative (NEGATIVE) 02/02/23 18:20 Random Vancomycin 8.7 ug/mL 02/08/23 05:58 Urine Opiates Screen Negative (NEG=<300) 02/02/23 18:20 Urine Methadone Screen Negative (NEG=<300) 02/02/23 18:20 Ur Barbiturates Screen Negative (NEG=<200) 02/02/23 18:20 Ur Phencyclidine Scrn Negative (NEG=<25) 02/02/23 18:20 Ur Amphetamines Screen Positive (NEG=<1000) 02/02/23 18:20 U Benzodiazepines Scrn Negative (NEG=<200) 02/02/23 18:20 Urine Cocaine Screen Negative (NEG=<300) 02/02/23 18:20 U Marijuana (THC) Screen Negative (NEG=<50) 02/02/23 18:20 Acetone, Semi-Quant Negative (NEGATIVE) 02/07/23 08:15 Plan (1) Cellulitis of hand, left: Status: Acute Plan: Vancomycin was stopped as the coagulase positive Staphylococcus aureus is sensitive to Levaquin and we started him on 750 mg IV daily yesterday because he has a FERNANDO of less than 1. We were initially going to try him on Zosyn but he is allergic to penicillins. His CRP is trending down and we will repeat that tomorrow morning. (2) Cellulitis of forearm, left: Status: Acute Plan: Continue IV Levaquin at this time. (3) Hypomagnesemia: Status: Acute Plan: Potassium/magnesium replacement protocol. (4) Hypokalemia: Status: Resolved Plan: Potassium/magnesium replacement protocol. (5) Left arm pain: Status: Acute Plan: I will add hydrocodone/acetaminophen 10/325 1 to 2 tablets every 4 hours for pain. He has IV Dilaudid to take for as needed pain as well. 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 Continue Levemir at 25 units twice daily. (8) COPD (chronic obstructive pulmonary disease): Status: Chronic Qualifiers: COPD type: unspecified COPD Qualified Code(s): J44.9 - Chronic obstructive pulmonary disease, unspecified Plan: I will discuss with patient with started him on treatment for this since he is not currently taking anything.
[2023-02-09] MEDS: ZESTRIL TAB 5 MG PO SCH (09:46)
[2023-02-09] MEDS: LEVEMIR SC SCH ×2 (09:46→20:09)
[2023-02-09] MEDS: INDERAL TAB 10 MG PO SCH ×2 (09:46→20:08)
[2023-02-09] MEDS: LEVAQUIN PREMIX IV 750 MG 750 MG/150 ML BAG IV SCH (09:48)
[2023-02-09] MEDS: DILAUDID INJ IVP PRN ×3 (11:25→20:09)
[2023-02-09] MEDS: NovoLIN R (or HumuLIN R) SUBCUT PRN ×2 (11:50→17:30)
--- NOTE | 2023-02-09 13:32 | NOTE.SOAP ---
Soap Note Note for Day of Date of Exam: 02/09/23 Subjective Data Subjective Data: Se[sis and left hand abscess. Improving. Objective Data Temperature: 98.8 F Pulse Rate: 90 Respiratory Rate: 18 Blood Pressure: 105/56 O2 Sat by Pulse Oximetry: 97 Objective Data: [place] to be packed by nurses. Assessment Assessment: Sepsis, + blood cultures and abscess left dorsal hand , + MSSA , Question of osteomyelits left hand Plan Plan: IV antibiotics, Cardiac ECHO due to Staphylococcus growing in blood.
[2023-02-09 15:17] VITALS: BMI 21.7
[2023-02-09] MEDS: NEURONTIN CAP 400 MG PO SCH (20:08)
[2023-02-09] MEDS: SNACK - Diabetic Appropriate PO SCH (20:08)
[2023-02-10] MEDS ORDERED: D50W ABBOJECT SYR IV ONE (05:27)
[2023-02-10] MEDS ORDERED: D50W ABBOJECT SYR ONE (05:28)
[2023-02-10 06:46] LABS: BASOPHILS # (AUTO) 0.1 X10^3/uL (0.0-0.1); BASOPHILS % (AUTO) 0.9 % (0.2-1.0); EOSINOPHILS # (AUTO) 0.1 x10^3/uL (0.0-0.2); EOSINOPHILS % (AUTO) 1.2 % (0.9-2.9); HEMATOCRIT 30.8 % (42.0-54.0); HEMOGLOBIN 10.6 g/dL (13.5-18.0); LYMPHOCYTES # (AUTO) 2.1 X10^3/uL (1.3-2.9); LYMPHOCYTES % (AUTO) 22.1 % (21.0-51.0); MEAN CORPUSCULAR HEMOGLOBIN 28.2 pg (27.0-34.0); MEAN CORPUSCULAR HGB CONC 34.5 g/dL (33.0-35.0); MEAN CORPUSCULAR VOLUME 81.8 fL (80.0-100.0); MEAN PLATELET VOLUME 6.4 fL (7.4-11.0); MONOCYTES # (AUTO) 1.1 x10^3/uL (0.3-0.8); NEUTROPHILS % (AUTO) 63.8 % (42.0-75.0); PLATELET COUNT 559 X10^3/uL (150.0-450.0); RED BLOOD COUNT 3.76 X10^6/uL (4.7-6.0); WHITE BLOOD COUNT 9.4 X10^3/uL (3.6-10.0)
[2023-02-10 06:53] LABS: ERYTHROCYTE SEDIMENTATION RATE 95 MM/HOUR (0-15)
[2023-02-10 06:56] LABS: ALANINE AMINOTRANSFERASE 25 Units/L (12-78); ALBUMIN 2.2 g/dL (3.4-5.0); ALKALINE PHOSPHATASE 75 Units/L (46-116); ASPARTATE AMINO TRANSFERASE 24 Units/L (15-37); BLOOD UREA NITROGEN 10 mg/dL (7-18); CALCIUM 8.6 mg/dL (8.5-10.1); CARBON DIOXIDE 31.7 mmol/L (21-32); CHLORIDE 99 mmol/L (98-107); COR NA(FOR HYPERGLY) 136 mmol/L (136-145); CREATININE 0.46 mg/dL (0.70-1.30); GLUCOSE 139 mg/dL (65-99); POTASSIUM 3.7 mmol/L (3.5-5.1); SODIUM 135 mmol/L (136-145); TOTAL PROTEIN 6.9 g/dL (6.4-8.2); eGFR NON BLACK RACES > 60 (>60)
--- NOTE | 2023-02-10 08:28 | PCM.PROG ---
Progress Note Progress Note for Day of Date of Exam: 02/10/23 Subjective Subjective: Patient is resting comfortably in bed this morning. He reports his pain is improved overall. Blood cultures and I&D have grown out coagulase positive Staphylococcus aureus. He currently is receiving IV Levaquin 750 mg IV daily since he had a FERNANDO of less than 1. Patient is getting a BHARATI this morning per cardiology. I am planning on repeating the MRI of his left hand and forearm tomorrow or early Wednesday morning. Overall patient is improved he is ESR and CRP are continuing to decrease in number. Follow-up with BHARATI later today. Preliminary echocardiogram report did not show any vegetation on any heart valve. Past Medical Family Social History Past Med/Fam/Surg Hx: No changes since H&P Allergies: Allergies Penicillins Allergy (Verified 12/22/21 17:12) Review of Systems ROS: No change since H&P Vital Signs and I&O's Vital Signs: Temperature 99.0 F Temperature 98.6 F Pulse Rate [Brachial] 98 Pulse Rate 90 Pulse Rate 101 Respiratory Rate 20 Respiratory Rate 20 Blood Pressure [Left Arm] 139/69 Blood Pressure [Right Arm] 118/62 Blood Pressure 105/56 Blood Pressure 113/59 O2 Sat by Pulse Oximetry 98 O2 Sat by Pulse Oximetry 99 Intake and Output: Intake & Output 02/07/23 02/08/23 02/09/23 02/10/23 11:59 11:59 11:59 11:59 Intake Total 2170 / 2170 1702 / 1702 194 / 1942 2310 / 2310 Balance 2170 / 2170 1702 / 1702 1942 2310 / 2310 Physical Exam Oriented: Normal, Time, Person and Place Eyes: Normal Ear: Normal Nose: Normal Throat: Normal Respiratory: Normal Cardiovascular: Normal : Normal Auscultation: Bowel Sounds: Normal Tenderness: Normal Skin: Other (Significant swelling and redness to the dorsum of the left hand .Area of old injury to the left hypothenar eminence is not red or swollen ) Musculoskeletal: Normal Psychiatric: Normal Mood Description: Calm Affect: Normal Speech Pattern: Clear and Appropriate Laboratory and Diagnostics Result Diagrams: 02/10/23 06:04 02/10/23 06:04 Labs: 02/04/23 18:58 Hand - Left Wound Gram Stain - Final 02/04/23 18:58 Hand - Left Wound Culture - Final Staphylococcus Aureus 02/02/23 17:37 Blood Blood Culture - Final Staphylococcus Aureus 02/02/23 17:30 Blood Blood Culture - Final Staphylococcus Aureus Laboratory WBC 9.4 X10^3/uL (3.6-10.0) 02/10/23 06:04 RBC 3.76 X10^6/uL (4.7-6.0) L 02/10/23 06:04 Hgb 10.6 g/dL (13.5-18.0) L 02/10/23 06:04 Hct 30.8 % (42.0-54.0) L 02/10/23 06:04 MCV 81.8 fL (80.0-100.0) 02/10/23 06:04 MCH 28.2 pg (27.0-34.0) 02/10/23 06:04 MCHC 34.5 g/dL (33.0-35.0) 02/10/23 06:04 RDW 15.0 % (11.6-16.5) 02/10/23 06:04 Plt Count 559 X10^3/uL (150.0-450.0) H 02/10/23 06:04 Plt Count Comment Increased (ADEQUATE) 02/09/23 05:56 MPV 6.4 fL (7.4-11.0) L 02/10/23 06:04 Neut % (Auto) 63.8 % (42.0-75.0) 02/10/23 06:04 Lymph % (Auto) 22.1 % (21.0-51.0) 02/10/23 06:04 [place] % (Auto) 12.0 % (0.0-13.0) 02/10/23 06:04 Eos % (Auto) 1.2 % (0.9-2.9) 02/10/23 06:04 Baso % (Auto) 0.9 % (0.2-1.0) 02/10/23 06:04 Neut # (Auto) 6.0 x10^3/uL (2.2-4.8) H 02/10/23 06:04 Lymph # (Auto) 2.1 X10^3/uL (1.3-2.9) 02/10/23 06:04 [place] # (Auto) 1.1 x10^3/uL (0.3-0.8) H 02/10/23 06:04 Eos # (Auto) 0.1 x10^3/uL (0.0-0.2) 02/10/23 06:04 Baso # (Auto) 0.1 X10^3/uL (0.0-0.1) 02/10/23 06:04 Absolute Nucleated RBC 0.0 /100WBC 02/10/23 06:04 Plt Morphology Comment Normal (NORMAL) 02/09/23 05:56 RBC Morphology Normal (NORMAL) 02/09/23 05:56 ESR 95 MM/HOUR (0-15) H 02/10/23 06:04 Sodium 135 mmol/L (136-145) L 02/10/23 06:04 Corrected Sodium 136 mmol/L (136-145) 02/10/23 06:04 Potassium 3.7 mmol/L (3.5-5.1) 02/10/23 06:04 Chloride 99 mmol/L (98-107) 02/10/23 06:04 Carbon Dioxide 31.7 mmol/L (21-32) 02/10/23 06:04 BUN 10 mg/dL (7-18) 02/10/23 06:04 Creatinine 0.46 mg/dL (0.70-1.30) L 02/10/23 06:04 Est GFR (MDRD) Af Amer > 60 (>60) 02/10/23 06:04 Est GFR (MDRD) Non-Af > 60 (>60) 02/10/23 06:04 Glucose 139 mg/dL (65-99) H 02/10/23 06:04 POC Glucose (mg/dL) 100 mg/dL (65-99) H 02/10/23 06:17 Lactic Acid 1.2 mmol/L (0.4-2.0) 02/02/23 17:37 Calcium 8.6 mg/dL (8.5-10.1) 02/10/23 06:04 Corrected Calcium 10.0 mg/dL (8.5-10.1) 02/10/23 06:04 Magnesium 2.0 mg/dL (2.0-2.9) 02/06/23 04:43 Total Bilirubin 0.20 mg/dL (0.2-1.0) 02/10/23 06:04 AST 24 Units/L (15-37) 02/10/23 06:04 ALT 25 Units/L (12-78) 02/10/23 06:04 Alkaline Phosphatase 75 Units/L (46-116) 02/10/23 06:04 C-Reactive Protein 42.20 mg/L (0-3.0) H 02/10/23 06:04 Total Protein 6.9 g/dL (6.4-8.2) 02/10/23 06:04 Albumin 2.2 g/dL (3.4-5.0) L 02/10/23 06:04 Globulin 4.7 g/dL (2.5-4.5) H 02/10/23 06:04 Albumin/Globulin Ratio 0.5 Ratio (1.1-2.1) L 02/10/23 06:04 Specimen Type Clean catch urine 02/02/23 18:20 Urine Color Straw (YELLOW) 02/02/23 18:20 Urine Appearance Clear (CLEAR) 02/02/23 18:20 Urine pH 6.0 (5.0 - 8.0) 02/02/23 18:20 Ur Specific [place] 1.010 (1.000-1.030) 02/02/23 18:20 Urine Protein Negative (NEGATIVE) 02/02/23 18:20 Urine Glucose (UA) 4+ (NEGATIVE) 02/02/23 18:20 Urine Ketones Negative (NEGATIVE) 02/02/23 18:20 Urine Blood Negative (NEGATIVE) 02/02/23 18:20 Urine Nitrite Negative (NEGATIVE) 02/02/23 18:20 Urine Bilirubin Negative (NEGATIVE) 02/02/23 18:20 Urine Urobilinogen Normal (NORMAL) 02/02/23 18:20 Ur Leukocyte Esterase Negative (NEGATIVE) 02/02/23 18:20 Random Vancomycin 8.7 ug/mL 02/08/23 05:58 Urine Opiates Screen Negative (NEG=<300) 02/02/23 18:20 Urine Methadone Screen Negative (NEG=<300) 02/02/23 18:20 Ur Barbiturates Screen Negative (NEG=<200) 02/02/23 18:20 Ur Phencyclidine Scrn Negative (NEG=<25) 02/02/23 18:20 Ur Amphetamines Screen Positive (NEG=<1000) 02/02/23 18:20 U Benzodiazepines Scrn Negative (NEG=<200) 02/02/23 18:20 Urine Cocaine Screen Negative (NEG=<300) 02/02/23 18:20 U Marijuana (THC) Screen Negative (NEG=<50) 02/02/23 18:20 Acetone, Semi-Quant Negative (NEGATIVE) 02/07/23 08:15 Plan (1) Cellulitis of hand, left: Status: Acute Plan: Continue IV levofloxacin at 750 mg IV daily. (2) Cellulitis of forearm, left: Status: Acute Plan: Continue IV Levaquin at this time. (3) Hypomagnesemia: Status: Resolved Plan: Potassium/magnesium replacement protocol. (4) Hypokalemia: Status: Resolved Plan: Potassium/magnesium replacement protocol. (5) Left arm pain: Status: Acute Plan: I will add hydrocodone/acetaminophen 10/325 1 to 2 tablets every 4 hours for pain. He has IV Dilaudid to take for as needed pain as well. 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 Hold Levemir this morn ing since he is n.p.o. for his BHARATI later today. (8) COPD (chronic obstructive pulmonary disease): Status: Chronic Qualifiers: COPD type: unspecified COPD Qualified Code(s): J44.9 - Chronic obstructive pulmonary disease, unspecified Plan: I will discuss with patient with started him on treatment for this since he is not currently taking anything.
[2023-02-10] MEDS: DILAUDID INJ IVP PRN ×3 (08:35→16:33)
[2023-02-10] MEDS: LEVAQUIN PREMIX IV 750 MG 750 MG/150 ML BAG IV SCH (09:17)
[2023-02-10] MEDS ORDERED: D5 1/2 NS 1,000 ML 1,000 ML IV ONE (09:29)
[2023-02-10] MEDS ORDERED: DIPRIVAN VIAL 20 ML ONE (09:51)
[2023-02-10] MEDS ORDERED: XYLOCAINE 2 % (PLAIN) ONE (09:52)
[2023-02-10] MEDS: INDERAL TAB 10 MG PO SCH ×2 (13:56→20:13)
[2023-02-10] MEDS: ZESTRIL TAB 5 MG PO SCH (14:40)
[2023-02-10] MEDS: NovoLIN R (or HumuLIN R) SUBCUT PRN (16:55)
[2023-02-10] MEDS: NEURONTIN CAP 400 MG PO SCH (20:13)
[2023-02-10] MEDS: SNACK - Diabetic Appropriate PO SCH (20:13)
[2023-02-10] MEDS: NORCO 10/325 TAB PO PRN (20:14)
[2023-02-10] MEDS: LEVEMIR SC SCH (20:14)
--- NOTE | 2023-02-10 23:00 | NOTE.SOAP ---
Soap Note Note for Day of Date of Exam: 02/10/23 Subjective Data Subjective Data: Abscess left dorsal hand with + blood cultures. MSSA growing , Had responding. Had BHARATI today and there are no valve vegetations of the heart. Objective Data Temperature: 99.3 F Pulse Rate: 121 Respiratory Rate: 20 Blood Pressure: 111/56 O2 Sat by Pulse Oximetry: 96 Objective Data: Dressing changed left hand by nurses. Assessment Assessment: right hand infection and + blood cultures Plan Plan: Repeat MRI of hand ordered for tomorrow.
[2023-02-11] MEDS: NORCO 10/325 TAB PO PRN ×2 (01:44→20:43)
[2023-02-11 06:35] LABS: BASOPHILS # (AUTO) 0.1 X10^3/uL (0.0-0.1); BASOPHILS % (AUTO) 1.2 % (0.2-1.0); EOSINOPHILS # (AUTO) 0.1 x10^3/uL (0.0-0.2); EOSINOPHILS % (AUTO) 1.8 % (0.9-2.9); HEMATOCRIT 30.8 % (42.0-54.0); HEMOGLOBIN 10.5 g/dL (13.5-18.0); LYMPHOCYTES # (AUTO) 2.2 X10^3/uL (1.3-2.9); LYMPHOCYTES % (AUTO) 33.7 % (21.0-51.0); MEAN CORPUSCULAR HEMOGLOBIN 28.1 pg (27.0-34.0); MEAN CORPUSCULAR HGB CONC 34.1 g/dL (33.0-35.0); MEAN CORPUSCULAR VOLUME 82.3 fL (80.0-100.0); MEAN PLATELET VOLUME 6.6 fL (7.4-11.0); MONOCYTES % (AUTO) 15.4 % (0.0-13.0); NEUTROPHILS # (AUTO) 3.1 x10^3/uL (2.2-4.8); NEUTROPHILS % (AUTO) 47.9 % (42.0-75.0); PLATELET COUNT 573 X10^3/uL (150.0-450.0); RED BLOOD COUNT 3.74 X10^6/uL (4.7-6.0); RED CELL DISTRIBUTION WIDTH 14.9 % (11.6-16.5); WHITE BLOOD COUNT 6.5 X10^3/uL (3.6-10.0)
[2023-02-11 07:05] LABS: ALANINE AMINOTRANSFERASE 22 Units/L (12-78); ALKALINE PHOSPHATASE 80 Units/L (46-116); ASPARTATE AMINO TRANSFERASE 15 Units/L (15-37); BLOOD UREA NITROGEN 7 mg/dL (7-18); CALCIUM 8.4 mg/dL (8.5-10.1); CHLORIDE 98 mmol/L (98-107); COR NA(FOR HYPERGLY) 139 mmol/L (136-145); CREATININE 0.48 mg/dL (0.70-1.30); GLUCOSE 232 mg/dL (65-99); POTASSIUM 3.8 mmol/L (3.5-5.1); SODIUM 136 mmol/L (136-145); TOTAL PROTEIN 6.6 g/dL (6.4-8.2); eGFR NON BLACK RACES > 60 (>60)
[2023-02-11] MEDS: DILAUDID INJ IVP PRN ×4 (07:53→17:44)
[2023-02-11] MEDS: LEVAQUIN PREMIX IV 750 MG 750 MG/150 ML BAG IV SCH (10:26)
[2023-02-11] MEDS: INDERAL TAB 10 MG PO SCH ×2 (10:27→20:34)
[2023-02-11] MEDS: LEVEMIR SC SCH ×2 (10:27→20:33)
[2023-02-11] MEDS: ZESTRIL TAB 5 MG PO SCH (10:27)
--- NOTE | 2023-02-11 10:59 | PCM.PROG ---
Progress Note Progress Note for Day of Date of Exam: 02/11/23 Subjective Subjective: Patient is alert and awake this morning. He is still having some pain in the left hand and arm but not as much as he had previously. He had a BHARATI and it has shown no vegetations at this time. We are repeating an MRI of the left hand and arm today to rule out any osteomyelitis that could be ongoing. Patient's CRP continues to decrease daily. Past Medical Family Social History Past Med/Fam/Surg Hx: No changes since H&P Allergies: Allergies Penicillins Allergy (Verified 12/22/21 17:12) Review of Systems ROS: No change since H&P Vital Signs and I&O's Vital Signs: Temperature 98.7 F Temperature 98.6 F Pulse Rate [Brachial] 102 Pulse Rate 121 Pulse Rate 101 Respiratory Rate 18 Respiratory Rate 20 Blood Pressure [Left Arm] 140/71 Blood Pressure [Right Arm] 118/62 Blood Pressure 111/56 Blood Pressure 113/59 O2 Sat by Pulse Oximetry 99 O2 Sat by Pulse Oximetry 99 Intake and Output: Intake & Output 02/08/23 02/09/23 02/10/23 02/11/23 11:59 11:59 11:59 11:59 Intake Total 2 / 1702 1942 / 1942 2510 / 2510 2390 / 2390 Balance 1702 / 1702 1942 / 1942 2510 / 2510 2390 / 2390 Physical Exam Oriented: Normal, Time, Person and Place Eyes: Normal Ear: Normal Nose: Normal Throat: Normal Respiratory: Normal Cardiovascular: Normal : Normal Auscultation: Bowel Sounds: Normal Tenderness: Normal Skin: Other (Significant swelling and redness to the dorsum of the left hand .Area of old injury to the left hypothenar eminence is not red or swollen ) Musculoskeletal: Normal Psychiatric: Normal Mood Description: Calm Affect: Normal Speech Pattern: Clear and Appropriate Laboratory and Diagnostics Result Diagrams: 02/11/23 05:07 02/11/23 05:07 Labs: 02/04/23 18:58 Hand - Left Wound Gram Stain - Final 02/04/23 18:58 Hand - Left Wound Culture - Final Staphylococcus Aureus 02/02/23 17:37 Blood Blood Culture - Final Staphylococcus Aureus 02/02/23 17:30 Blood Blood Culture - Final Staphylococcus Aureus Laboratory WBC 6.5 X10^3/uL (3.6-10.0) 02/11/23 05:07 RBC 3.74 X10^6/uL (4.7-6.0) L 02/11/23 05:07 Hgb 10.5 g/dL (13.5-18.0) L 02/11/23 05:07 Hct 30.8 % (42.0-54.0) L 02/11/23 05:07 MCV 82.3 fL (80.0-100.0) 02/11/23 05:07 MCH 28.1 pg (27.0-34.0) 02/11/23 05:07 MCHC 34.1 g/dL (33.0-35.0) 02/11/23 05:07 RDW 14.9 % (11.6-16.5) 02/11/23 05:07 Plt Count 573 X10^3/uL (150.0-450.0) H 02/11/23 05:07 Plt Count Comment Increased (ADEQUATE) 02/09/23 05:56 MPV 6.6 fL (7.4-11.0) L 02/11/23 05:07 Neut % (Auto) 47.9 % (42.0-75.0) 02/11/23 05:07 Lymph % (Auto) 33.7 % (21.0-51.0) 02/11/23 05:07 [place] % (Auto) 15.4 % (0.0-13.0) H 02/11/23 05:07 Eos % (Auto) 1.8 % (0.9-2.9) 02/11/23 05:07 Baso % (Auto) 1.2 % (0.2-1.0) H 02/11/23 05:07 Neut # (Auto) 3.1 x10^3/uL (2.2-4.8) 02/11/23 05:07 Lymph # (Auto) 2.2 X10^3/uL (1.3-2.9) 02/11/23 05:07 [place] # (Auto) 1.0 x10^3/uL (0.3-0.8) H 02/11/23 05:07 Eos # (Auto) 0.1 x10^3/uL (0.0-0.2) 02/11/23 05:07 Baso # (Auto) 0.1 X10^3/uL (0.0-0.1) 02/11/23 05:07 Absolute Nucleated RBC 0.1 /100WBC 02/11/23 05:07 Plt Morphology Comment Normal (NORMAL) 02/09/23 05:56 RBC Morphology Normal (NORMAL) 02/09/23 05:56 ESR 95 MM/HOUR (0-15) H 02/10/23 06:04 Sodium 136 mmol/L (136-145) 02/11/23 05:07 Corrected Sodium 139 mmol/L (136-145) 02/11/23 05:07 Potassium 3.8 mmol/L (3.5-5.1) 02/11/23 05:07 Chloride 98 mmol/L (98-107) 02/11/23 05:07 Carbon Dioxide 29.0 mmol/L (21-32) 02/11/23 05:07 BUN 7 mg/dL (7-18) 02/11/23 05:07 Creatinine 0.48 mg/dL (0.70-1.30) L 02/11/23 05:07 Est GFR (MDRD) Af Amer > 60 (>60) 02/11/23 05:07 Est GFR (MDRD) Non-Af > 60 (>60) 02/11/23 05:07 Glucose 232 mg/dL (65-99) H 02/11/23 05:07 POC Glucose (mg/dL) 198 mg/dL (65-99) H 02/11/23 05:51 Lactic Acid 1.2 mmol/L (0.4-2.0) 02/02/23 17:37 Calcium 8.4 mg/dL (8.5-10.1) L 02/11/23 05:07 Corrected Calcium 10.0 mg/dL (8.5-10.1) 02/11/23 05:07 Magnesium 2.0 mg/dL (2.0-2.9) 02/06/23 04:43 Total Bilirubin 0.10 mg/dL (0.2-1.0) L 02/11/23 05:07 AST 15 Units/L (15-37) 02/11/23 05:07 ALT 22 Units/L (12-78) 02/11/23 05:07 Alkaline Phosphatase 80 Units/L (46-116) 02/11/23 05:07 C-Reactive Protein 36.60 mg/L (0-3.0) H 02/11/23 05:07 Total Protein 6.6 g/dL (6.4-8.2) 02/11/23 05:07 Albumin 2.0 g/dL (3.4-5.0) L 02/11/23 05:07 Globulin 4.6 g/dL (2.5-4.5) H 02/11/23 05:07 Albumin/Globulin Ratio 0.4 Ratio (1.1-2.1) L 02/11/23 05:07 Specimen Type Clean catch urine 02/02/23 18:20 Urine Color Straw (YELLOW) 02/02/23 18:20 Urine Appearance Clear (CLEAR) 02/02/23 18:20 Urine pH 6.0 (5.0 - 8.0) 02/02/23 18:20 Ur Specific [place] 1.010 (1.000-1.030) 02/02/23 18:20 Urine Protein Negative (NEGATIVE) 02/02/23 18:20 Urine Glucose (UA) 4+ (NEGATIVE) 02/02/23 18:20 Urine Ketones Negative (NEGATIVE) 02/02/23 18:20 Urine Blood Negative (NEGATIVE) 02/02/23 18:20 Urine Nitrite Negative (NEGATIVE) 02/02/23 18:20 Urine Bilirubin Negative (NEGATIVE) 02/02/23 18:20 Urine Urobilinogen Normal (NORMAL) 02/02/23 18:20 Ur Leukocyte Esterase Negative (NEGATIVE) 02/02/23 18:20 Random Vancomycin 8.7 ug/mL 02/08/23 05:58 Urine Opiates Screen Negative (NEG=<300) 02/02/23 18:20 Urine Methadone Screen Negative (NEG=<300) 02/02/23 18:20 Ur Barbiturates Screen Negative (NEG=<200) 02/02/23 18:20 Ur Phencyclidine Scrn Negative (NEG=<25) 02/02/23 18:20 Ur Amphetamines Screen Positive (NEG=<1000) 02/02/23 18:20 U Benzodiazepines Scrn Negative (NEG=<200) 02/02/23 18:20 Urine Cocaine Screen Negative (NEG=<300) 02/02/23 18:20 U Marijuana (THC) Screen Negative (NEG=<50) 02/02/23 18:20 Acetone, Semi-Quant Negative (NEGATIVE) 02/07/23 08:15 Plan (1) Cellulitis of hand, left: Status: Acute Plan: Continue IV levofloxacin at 750 mg IV daily. We are repeating MRI of his left hand and arm today to see if there is any changes with reactive bone versus early osteomyelitis. (2) Cellulitis of forearm, left: Status: Acute Plan: Continue IV Levaquin at this time. (3) Hypomagnesemia: Status: Resolved Plan: Potassium/magnesium replacement protocol. (4) Hypokalemia: Status: Resolved Plan: Potassium/magnesium replacement protocol. (5) Left arm pain: Status: Acute Plan: I will add hydrocodone/acetaminophen 10/325 1 to 2 tablets every 4 hours for pain. He has IV Dilaudid to take for as needed pain as well. 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 Continue Levemir with 25 units in the morning and 20 units at night. (8) COPD (chronic obstructive pulmonary disease): Status: Chronic Qualifiers: COPD type: unspecified COPD Qualified Code(s): J44.9 - Chronic obstructive pulmonary disease, unspecified Plan: I will discuss with patient with started him on treatment for this since he is not currently taking anything.
[2023-02-11] MEDS: NovoLIN R (or HumuLIN R) SUBCUT PRN ×2 (12:20→17:43)
[2023-02-11] MEDS: SNACK - Diabetic Appropriate PO SCH (20:33)
[2023-02-11] MEDS: NEURONTIN CAP 400 MG PO SCH (20:34)
[2023-02-12] MEDS: DILAUDID INJ IVP PRN ×4 (06:01→22:13)
[2023-02-12 06:04] LABS: BASOPHILS % (AUTO) 0.3 % (0.2-1.0); EOSINOPHILS # (AUTO) 0.2 x10^3/uL (0.0-0.2); EOSINOPHILS % (AUTO) 1.9 % (0.9-2.9); HEMATOCRIT 34.5 % (42.0-54.0); HEMOGLOBIN 11.6 g/dL (13.5-18.0); LYMPHOCYTES # (AUTO) 3.1 X10^3/uL (1.3-2.9); LYMPHOCYTES % (AUTO) 32.6 % (21.0-51.0); MEAN CORPUSCULAR HEMOGLOBIN 27.6 pg (27.0-34.0); MEAN CORPUSCULAR HGB CONC 33.5 g/dL (33.0-35.0); MEAN CORPUSCULAR VOLUME 82.2 fL (80.0-100.0); MEAN PLATELET VOLUME 6.1 fL (7.4-11.0); MONOCYTES # (AUTO) 1.2 x10^3/uL (0.3-0.8); MONOCYTES % (AUTO) 12.7 % (0.0-13.0); NEUTROPHILS # (AUTO) 4.9 x10^3/uL (2.2-4.8); NEUTROPHILS % (AUTO) 52.5 % (42.0-75.0); RED CELL DISTRIBUTION WIDTH 14.8 % (11.6-16.5); WHITE BLOOD COUNT 9.4 X10^3/uL (3.6-10.0)
[2023-02-12 06:06] LABS: PLATELET COUNT 713 X10^3/uL (150.0-450.0)
[2023-02-12 06:10] LABS: ERYTHROCYTE SEDIMENTATION RATE 112 MM/HOUR (0-15)
[2023-02-12 06:20] LABS: ALANINE AMINOTRANSFERASE 26 Units/L (12-78); ALBUMIN 2.4 g/dL (3.4-5.0); ALKALINE PHOSPHATASE 85 Units/L (46-116); ASPARTATE AMINO TRANSFERASE 16 Units/L (15-37); BLOOD UREA NITROGEN 13 mg/dL (7-18); CALCIUM 9.1 mg/dL (8.5-10.1); CARBON DIOXIDE 31.6 mmol/L (21-32); CHLORIDE 99 mmol/L (98-107); COR CA(FOR HYPOALB) 10.4 mg/dL (8.5-10.1); CREATININE 0.51 mg/dL (0.70-1.30); GLUCOSE 67 mg/dL (65-99); POTASSIUM 4.3 mmol/L (3.5-5.1); SODIUM 137 mmol/L (136-145); TOTAL PROTEIN 7.8 g/dL (6.4-8.2); eGFR NON BLACK RACES > 60 (>60)
[2023-02-12] MEDS: LEVEMIR SC SCH ×2 (09:02→22:00)
[2023-02-12] MEDS: LEVAQUIN PREMIX IV 750 MG 750 MG/150 ML BAG IV SCH (09:03)
[2023-02-12] MEDS: ZESTRIL TAB 5 MG PO SCH (09:03)
[2023-02-12] MEDS: INDERAL TAB 10 MG PO SCH ×2 (09:03→22:11)
--- NOTE | 2023-02-12 09:55 | NOTE.SOAP ---
Soap Note Note for Day of Date of Exam: 02/11/23 Subjective Data Subjective Data: Doing well. Dressing change of left hand wound performed by nurses. Plan discharge tomorrow Objective Data Temperature: 98.7 F Pulse Rate: 102 Respiratory Rate: 20 Blood Pressure: 106/65 O2 Sat by Pulse Oximetry: 95 Objective Data: Left hAnd dressing intact . Assessment Assessment: D/C tomorrow . Will discuss with Dr Lozada. Plan Plan: as above
--- NOTE | 2023-02-12 10:43 | MRI ---
HISTORYf/u cellulitisSTUDYEXT UPPER JOINT W W/O [id number]/2023TECHNIQUEMultipla malou multi sequences images through the hand was performed with and without contrastFINDINGSSince prior study, there has been interval increase in the size of the dorsal wound there appears extending in the deep palmar region with a length of approximately 3.4 centimeters, there is a focal collection with peripheral enhancement along the wound and a focal phlegmon/abscess between the 3rd and 4th metacarpal bones measuring approximately 1.3 x 0.9 centimeters that appears draining into the skin region. There is a small collection projecting in the dorsal at the level of extensor tendons anterior to the 2nd metacarpal bone measuring in length 1.2 centimeters and thickness 0.6 centimeters, image 14 series 1201, that could be in connection with the 1There is extensive heterogeneous enhancement of the 3rd metacarpal bone extending from the head to the level of the base consistent with osteomyelitis with suspected focal high-signal on T2 area that could correspond with small intra osseous abscess toward the distal aspectThere is strong enhancement also at the base of the 4th and 2nd metacarpal bones suspicious for osteomyelitis. There is also enhancement at distal aspect of the capitate and hamate bones and the entire trapezoid bone, all these areas of enhancement are new since prior study.There is also enhancement patchy in the distal aspect of the scaphoid bone and in the trapezium bone there appears that be degenerative and present on prior study. There is some fluid in the 3rd metacarpal phalangeal joint with minimal edema in the base of the 3rd proximal phalanx.IMPRESSIONInterval increase in size of the dorsal ulcer/wound extending deep at the level of the intercarpal 3rd and 4th bones with a suspected draining abscess at the levelAlso a small collection seen at the level of the extensor tendons more lateral and towards the radial region that it could correspond with extension of the wound seen on image 14 series 1201New severe enhancement of the base of the 3rd of and 2nd metatarsal bones and the distal aspect of the hamate, capitate and the entire trapezoid bone consistent with osteomyelitisHeterogeneous enhancement of the 3rd metacarpal bone with a focal higher signal area distally consistent with acute osteomyelitis with a possible small intra osseous abscess formation.Electronically signed by: Regina Roach (Feb 12, 2023 10:42:03)
[2023-02-12] MEDS: NovoLIN R (or HumuLIN R) SUBCUT PRN (12:33)
[2023-02-12] MEDS: NORCO 10/325 TAB PO PRN ×2 (12:34→23:35)
[2023-02-12] MEDS: TEFLARO 600 MG in NS 100 ML IV 100 ML IV SCH ×2 (12:35→21:59)
--- NOTE | 2023-02-12 16:48 | PCM.PROG ---
Progress Note Progress Note for Day of Date of Exam: 02/12/23 Subjective Subjective: Patient is alert and awake this morning. He is still having some pain in the left hand and arm but not as much as he had previously. He had a BHARATI and it has shown no vegetations at this time. The MRI done yesterday is now showing that the patient does indeed have osteomyelitis. This is involving the base of the second and third metatarsals as well as the capitate, scaphoid and hamate bones. There is also a possible Intraosseous abscess of the third metatarsal per MRI so we will have to plan on keeping the patient through the weekend and getting him arranged for PICC line early next week. We will continue him on Levaquin 750 mg IV at this time and I will add a 5th generation cephalosporin ceftaroline for improved coverage of the infection. This particular antibiotic has a FERNANDO of less than 0.5. Past Medical Family Social History Past Med/Fam/Surg Hx: No changes since H&P Allergies: Allergies Penicillins Allergy (Verified 12/22/21 17:12) Review of Systems ROS: No change since H&P Vital Signs and I&O's Vital Signs: Temperature 98.7 F Temperature 98.6 F Pulse Rate [Brachial] 114 Pulse Rate 102 Pulse Rate 101 Respiratory Rate 18 Respiratory Rate 20 Blood Pressure [Left Arm] 140/71 Blood Pressure [Right Arm] 121/66 Blood Pressure 106/65 Blood Pressure 113/59 O2 Sat by Pulse Oximetry 95 O2 Sat by Pulse Oximetry 99 Intake and Output: Intake & Output 02/10/23 02/11/23 02/12/23 02/13/23 11:59 11:59 11:59 11:59 Intake Total 2510 / 2510 2390 / 2390 1760 / 1760 960 / 960 Balance 2510 / 2510 2390 / 2390 1760 / 1760 960 / 960 Physical Exam Oriented: Normal, Time, Person and Place Eyes: Normal Ear: Normal Nose: Normal Throat: Normal Respiratory: Normal Cardiovascular: Normal : Normal Auscultation: Bowel Sounds: Normal Tenderness: Normal Skin: Other (Significant swelling and redness to the dorsum of the left hand .Area of old injury to the left hypothenar eminence is not red or swollen ) Musculoskeletal: Normal Psychiatric: Normal Mood Description: Calm Affect: Normal Speech Pattern: Clear and Appropriate Laboratory and Diagnostics Result Diagrams: 02/12/23 05:41 02/12/23 05:41 Labs: 02/04/23 18:58 Hand - Left Wound Gram Stain - Final 02/04/23 18:58 Hand - Left Wound Culture - Final Staphylococcus Aureus 02/02/23 17:37 Blood Blood Culture - Final Staphylococcus Aureus 02/02/23 17:30 Blood Blood Culture - Final Staphylococcus Aureus Laboratory WBC 9.4 X10^3/uL (3.6-10.0) 02/12/23 05:41 RBC 4.20 X10^6/uL (4.7-6.0) L 02/12/23 05:41 Hgb 11.6 g/dL (13.5-18.0) L 02/12/23 05:41 Hct 34.5 % (42.0-54.0) L 02/12/23 05:41 MCV 82.2 fL (80.0-100.0) 02/12/23 05:41 MCH 27.6 pg (27.0-34.0) 02/12/23 05:41 MCHC 33.5 g/dL (33.0-35.0) 02/12/23 05:41 RDW 14.8 % (11.6-16.5) 02/12/23 05:41 Plt Count 713 X10^3/uL (150.0-450.0) H 02/12/23 05:41 Plt Count Comment Increased (ADEQUATE) 02/09/23 05:56 MPV 6.1 fL (7.4-11.0) L 02/12/23 05:41 Neut % (Auto) 52.5 % (42.0-75.0) 02/12/23 05:41 Lymph % (Auto) 32.6 % (21.0-51.0) 02/12/23 05:41 [place] % (Auto) 12.7 % (0.0-13.0) 02/12/23 05:41 Eos % (Auto) 1.9 % (0.9-2.9) 02/12/23 05:41 Baso % (Auto) 0.3 % (0.2-1.0) 02/12/23 05:41 Neut # (Auto) 4.9 x10^3/uL (2.2-4.8) H 02/12/23 05:41 Lymph # (Auto) 3.1 X10^3/uL (1.3-2.9) H 02/12/23 05:41 [place] # (Auto) 1.2 x10^3/uL (0.3-0.8) H 02/12/23 05:41 Eos # (Auto) 0.2 x10^3/uL (0.0-0.2) 02/12/23 05:41 Baso # (Auto) 0.0 X10^3/uL (0.0-0.1) 02/12/23 05:41 Absolute Nucleated RBC 0.1 /100WBC 02/12/23 05:41 Plt Morphology Comment Normal (NORMAL) 02/09/23 05:56 RBC Morphology Normal (NORMAL) 02/09/23 05:56 ESR 112 MM/HOUR (0-15) H 02/12/23 05:41 Sodium 137 mmol/L (136-145) 02/12/23 05:41 Corrected Sodium TNP 02/12/23 05:41 Potassium 4.3 mmol/L (3.5-5.1) 02/12/23 05:41 Chloride 99 mmol/L (98-107) 02/12/23 05:41 Carbon Dioxide 31.6 mmol/L (21-32) 02/12/23 05:41 BUN 13 mg/dL (7-18) 02/12/23 05:41 Creatinine 0.51 mg/dL (0.70-1.30) L 02/12/23 05:41 Est GFR (MDRD) Af Amer > 60 (>60) 02/12/23 05:41 Est GFR (MDRD) Non-Af > 60 (>60) 02/12/23 05:41 Glucose 67 mg/dL (65-99) 02/12/23 05:41 POC Glucose (mg/dL) 309 mg/dL (65-99) H 02/12/23 12:20 Lactic Acid 1.2 mmol/L (0.4-2.0) 02/02/23 17:37 Calcium 9.1 mg/dL (8.5-10.1) 02/12/23 05:41 Corrected Calcium 10.4 mg/dL (8.5-10.1) H 02/12/23 05:41 Magnesium 2.0 mg/dL (2.0-2.9) 02/06/23 04:43 Total Bilirubin 0.20 mg/dL (0.2-1.0) 02/12/23 05:41 AST 16 Units/L (15-37) 02/12/23 05:41 ALT 26 Units/L (12-78) 02/12/23 05:41 Alkaline Phosphatase 85 Units/L (46-116) 02/12/23 05:41 C-Reactive Protein 26.00 mg/L (0-3.0) H 02/12/23 05:41 Total Protein 7.8 g/dL (6.4-8.2) 02/12/23 05:41 Albumin 2.4 g/dL (3.4-5.0) L 02/12/23 05:41 Globulin 5.4 g/dL (2.5-4.5) H 02/12/23 05:41 Albumin/Globulin Ratio 0.4 Ratio (1.1-2.1) L 02/12/23 05:41 Specimen Type Clean catch urine 02/02/23 18:20 Urine Color Straw (YELLOW) 02/02/23 18:20 Urine Appearance Clear (CLEAR) 02/02/23 18:20 Urine pH 6.0 (5.0 - 8.0) 02/02/23 18:20 Ur Specific [place] 1.010 (1.000-1.030) 02/02/23 18:20 Urine Protein Negative (NEGATIVE) 02/02/23 18:20 Urine Glucose (UA) 4+ (NEGATIVE) 02/02/23 18:20 Urine Ketones Negative (NEGATIVE) 02/02/23 18:20 Urine Blood Negative (NEGATIVE) 02/02/23 18:20 Urine Nitrite Negative (NEGATIVE) 02/02/23 18:20 Urine Bilirubin Negative (NEGATIVE) 02/02/23 18:20 Urine Urobilinogen Normal (NORMAL) 02/02/23 18:20 Ur Leukocyte Esterase Negative (NEGATIVE) 02/02/23 18:20 Random Vancomycin 8.7 ug/mL 02/08/23 05:58 Urine Opiates Screen Negative (NEG=<300) 02/02/23 18:20 Urine Methadone Screen Negative (NEG=<300) 02/02/23 18:20 Ur Barbiturates Screen Negative (NEG=<200) 02/02/23 18:20 Ur Phencyclidine Scrn Negative (NEG=<25) 02/02/23 18:20 Ur Amphetamines Screen Positive (NEG=<1000) 02/02/23 18:20 U Benzodiazepines Scrn Negative (NEG=<200) 02/02/23 18:20 Urine Cocaine Screen Negative (NEG=<300) 02/02/23 18:20 U Marijuana (THC) Screen Negative (NEG=<50) 02/02/23 18:20 Acetone, Semi-Quant Negative (NEGATIVE) 02/07/23 08:15 Plan (1) Osteomyelitis: Status: Acute Plan: Continue Levaquin 750 mg IV daily. I am adding ceftaroline a 5th generation cephalosporin at 600 mg IV every 12 hours since it has a FERNANDO of less than 0.5 for the coagulase positive Staphylococcus aureus. We will arrange for him to get a PICC line as soon as possible and plan on discharging him home with home health care so they can help administer his IV antibiotics and do his dressing changes in the early part of next week. (2) Cellulitis of hand, left: Status: Acute Plan: Continue IV levofloxacin at 750 mg IV daily. MRI yesterday shows that he does indeed have osteomyelitis as well as cellulitis. We are adding ceftaroline 600 mg IV every 12 hours. (3) Cellulitis of forearm, left: Status: Acute Plan: Continue IV Levaquin at this time. Adding ceftaroline 600 mg IV every 12 hours for improved coverage. (4) Hypomagnesemia: Status: Resolved Plan: Potassium/magnesium replacement protocol. (5) Hypokalemia: Status: Resolved Plan: Potassium/magnesium replacement protocol. (6) Left arm pain: Status: Acute Plan: I will add hydrocodone/acetaminophen 10/325 1 to 2 tablets every 4 hours for pain. He has IV Dilaudid to take for as needed pain as well. (7) Diabetic peripheral neuropathy associated with type 2 diabetes mellitus: Status: Chronic Plan: I will change patient's gabapentin from 800 mg at bedtime to 3 times daily. (8) Type 2 diabetes mellitus: Status: Chronic Qualifiers: Diabetes mellitus retirement insulin use: unspecified retirement insulin use status Diabetes mellitus complication status: with skin complications Plan: Sliding scale regular insulin per protocol. Continue Levemir with 25 units in the morning and 20 units at night. (9) COPD (chronic obstructive pulmonary disease): Status: Chronic Qualifiers: COPD type: unspecified COPD Qualified Code(s): J44.9 - Chronic obstructive pulmonary disease, unspecified Plan: I will discuss with patient with started him on treatment for this since he is not currently taking anything.
--- NOTE | 2023-02-12 17:12 | NOTE.SOAP ---
Soap Note Note for Day of Date of Exam: 02/12/23 Subjective Data Subjective Data: Dressing changes proceeding left hand without difficulty and the patien had MRI of the left hand today confirming osteomyelitis of multiple areas of the left hand . Objective Data Temperature: 98.7 F Pulse Rate: 102 Respiratory Rate: 20 Blood Pressure: 106/65 O2 Sat by Pulse Oximetry: 95 Objective Data: As above , + MRI right hand Assessment Assessment: Abscess/ osteomyelitis left hand with positive blood cultures . 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
[2023-02-12] MEDS: NEURONTIN CAP 400 MG PO SCH (22:10)
[2023-02-12] MEDS: SNACK - Diabetic Appropriate PO SCH (22:12)
[2023-02-13] MEDS: NEURONTIN CAP 400 MG PO SCH ×3 (05:55→20:59)
[2023-02-13 06:16] LABS: BASOPHILS # (AUTO) 0.1 X10^3/uL (0.0-0.1); BASOPHILS % (AUTO) 1.1 % (0.2-1.0); EOSINOPHILS # (AUTO) 0.1 x10^3/uL (0.0-0.2); EOSINOPHILS % (AUTO) 1.3 % (0.9-2.9); HEMATOCRIT 35.2 % (42.0-54.0); LYMPHOCYTES # (AUTO) 2.4 X10^3/uL (1.3-2.9); MEAN CORPUSCULAR HEMOGLOBIN 28.3 pg (27.0-34.0); MEAN CORPUSCULAR HGB CONC 34.2 g/dL (33.0-35.0); MEAN CORPUSCULAR VOLUME 82.9 fL (80.0-100.0); MEAN PLATELET VOLUME 6.3 fL (7.4-11.0); MONOCYTES # (AUTO) 1.2 x10^3/uL (0.3-0.8); MONOCYTES % (AUTO) 11.9 % (0.0-13.0); NEUTROPHILS # (AUTO) 5.9 x10^3/uL (2.2-4.8); NEUTROPHILS % (AUTO) 60.7 % (42.0-75.0); PLATELET COUNT 618 X10^3/uL (150.0-450.0); RED BLOOD COUNT 4.25 X10^6/uL (4.7-6.0); RED CELL DISTRIBUTION WIDTH 14.7 % (11.6-16.5); WHITE BLOOD COUNT 9.8 X10^3/uL (3.6-10.0)
[2023-02-13 06:20] LABS: ERYTHROCYTE SEDIMENTATION RATE 130 MM/HOUR (0-15)
[2023-02-13 06:22] LABS: ALANINE AMINOTRANSFERASE 26 Units/L (12-78); ALBUMIN 2.5 g/dL (3.4-5.0); ALKALINE PHOSPHATASE 96 Units/L (46-116); ASPARTATE AMINO TRANSFERASE 17 Units/L (15-37); BLOOD UREA NITROGEN 12 mg/dL (7-18); CALCIUM 8.9 mg/dL (8.5-10.1); CHLORIDE 100 mmol/L (98-107); COR CA(FOR HYPOALB) 10.1 mg/dL (8.5-10.1); COR NA(FOR HYPERGLY) 139 mmol/L (136-145); CREATININE 0.55 mg/dL (0.70-1.30); GLUCOSE 165 mg/dL (65-99); MAGNESIUM 1.8 mg/dL (2.0-2.9); POTASSIUM 4.5 mmol/L (3.5-5.1); SODIUM 137 mmol/L (136-145); TOTAL PROTEIN 7.6 g/dL (6.4-8.2); eGFR NON BLACK RACES > 60 (>60)
[2023-02-13] MEDS: MAGNESIUM SULFATE 1 GRAM/100 mL PREMIX 1 G/100 ML BAG IV PRN ×2 (06:36→08:38)
[2023-02-13] MEDS: INDERAL TAB 10 MG PO SCH ×2 (08:25→20:47)
[2023-02-13] MEDS: ZESTRIL TAB 5 MG PO SCH (08:25)
[2023-02-13] MEDS: NORCO 10/325 TAB PO PRN ×3 (08:27→20:48)
[2023-02-13] MEDS: LEVAQUIN PREMIX IV 750 MG 750 MG/150 ML BAG IV SCH (08:27)
[2023-02-13] MEDS: TEFLARO 600 MG in NS 100 ML IV 100 ML IV SCH ×2 (08:27→20:49)
[2023-02-13] MEDS: LEVEMIR SC SCH ×2 (08:28→20:49)
[2023-02-13] MEDS: DILAUDID INJ IVP PRN ×4 (10:30→23:44)
[2023-02-13] MEDS: NovoLIN R (or HumuLIN R) SUBCUT PRN ×2 (10:48→17:03)
[2023-02-13] MEDS: SNACK - Diabetic Appropriate PO SCH (20:50)
--- NOTE | 2023-02-13 23:53 | NOTE.SOAP ---
Soap Note Note for Day of Date of Exam: 02/13/23 Subjective Data Subjective Data: Continuing IV antibiotics and dressing changes for osteomyelitis of the left hand Objective Data Temperature: 98.9 F Pulse Rate: 114 Respiratory Rate: 18 Blood Pressure: 118/61 O2 Sat by Pulse Oximetry: 96 Objective Data: Left hand wound being changed daily. Redness is less. Assessment Assessment: Osteomyelitis / abscess of left hand Plan Plan: Continue IV antibiotics.
[2023-02-14] MEDS: DILAUDID INJ IVP PRN ×9 (03:26→22:53)
[2023-02-14] MEDS: NEURONTIN CAP 400 MG PO SCH ×3 (05:40→20:59)
[2023-02-14] MEDS: NovoLIN R (or HumuLIN R) SUBCUT PRN ×3 (05:50→20:48)
[2023-02-14 06:25] LABS: BASOPHILS # (AUTO) 0.1 X10^3/uL (0.0-0.1); EOSINOPHILS # (AUTO) 0.2 x10^3/uL (0.0-0.2); EOSINOPHILS % (AUTO) 2.1 % (0.9-2.9); HEMATOCRIT 31.8 % (42.0-54.0); HEMOGLOBIN 10.9 g/dL (13.5-18.0); LYMPHOCYTES # (AUTO) 2.5 X10^3/uL (1.3-2.9); LYMPHOCYTES % (AUTO) 28.6 % (21.0-51.0); MEAN CORPUSCULAR HEMOGLOBIN 28.2 pg (27.0-34.0); MEAN CORPUSCULAR HGB CONC 34.1 g/dL (33.0-35.0); MEAN CORPUSCULAR VOLUME 82.5 fL (80.0-100.0); MEAN PLATELET VOLUME 6.4 fL (7.4-11.0); MONOCYTES # (AUTO) 0.7 x10^3/uL (0.3-0.8); MONOCYTES % (AUTO) 8.4 % (0.0-13.0); NEUTROPHILS # (AUTO) 5.2 x10^3/uL (2.2-4.8); NEUTROPHILS % (AUTO) 59.9 % (42.0-75.0); PLATELET COUNT 619 X10^3/uL (150.0-450.0); RED BLOOD COUNT 3.85 X10^6/uL (4.7-6.0); RED CELL DISTRIBUTION WIDTH 14.4 % (11.6-16.5); WHITE BLOOD COUNT 8.7 X10^3/uL (3.6-10.0)
[2023-02-14 06:37] LABS: ALANINE AMINOTRANSFERASE 27 Units/L (12-78); ALBUMIN 2.3 g/dL (3.4-5.0); ALKALINE PHOSPHATASE 118 Units/L (46-116); ASPARTATE AMINO TRANSFERASE 17 Units/L (15-37); BLOOD UREA NITROGEN 14 mg/dL (7-18); CALCIUM 8.5 mg/dL (8.5-10.1); CARBON DIOXIDE 33.1 mmol/L (21-32); CHLORIDE 100 mmol/L (98-107); COR CA(FOR HYPOALB) 9.9 mg/dL (8.5-10.1); COR NA(FOR HYPERGLY) 140 mmol/L (136-145); GLUCOSE 232 mg/dL (65-99); MAGNESIUM 1.6 mg/dL (2.0-2.9); POTASSIUM 4.2 mmol/L (3.5-5.1); SODIUM 137 mmol/L (136-145); TOTAL PROTEIN 6.9 g/dL (6.4-8.2); eGFR NON BLACK RACES > 60 (>60)
[2023-02-14 06:47] LABS: ERYTHROCYTE SEDIMENTATION RATE 84 MM/HOUR (0-15)
[2023-02-14] MEDS: INDERAL TAB 10 MG PO SCH ×2 (08:43→20:46)
[2023-02-14] MEDS: LEVAQUIN PREMIX IV 750 MG 750 MG/150 ML BAG IV SCH (08:43)
[2023-02-14] MEDS: LEVEMIR SC SCH ×2 (08:43→20:48)
[2023-02-14] MEDS: ZESTRIL TAB 5 MG PO SCH (08:44)
[2023-02-14] MEDS: TEFLARO 600 MG in NS 100 ML IV 100 ML IV SCH ×2 (08:44→20:47)
[2023-02-14] MEDS: NORCO 10/325 TAB PO PRN ×3 (10:25→20:49)
[2023-02-14] MEDS: MAGNESIUM SULFATE 1 GRAM/100 mL PREMIX 1 G/100 ML BAG IV PRN ×2 (11:41→13:37)
[2023-02-14] MEDS: SNACK - Diabetic Appropriate PO SCH (20:57)
--- NOTE | 2023-02-14 23:56 | NOTE.SOAP ---
Soap Note Note for Day of Date of Exam: 02/14/23 Subjective Data Subjective Data: Stable today.Receiving IV antibiotics Objective Data Temperature: 98.2 F Pulse Rate: 106 Respiratory Rate: 18 Blood Pressure: 128/74 O2 Sat by Pulse Oximetry: 99 Objective Data: Hand wound continues to improved. Assessment Assessment: Abscess left hand, + blood cultures, osteomyelitis left hand Plan Plan: D/C home on IV antibiotics . Needs infectious disease consult.
[2023-02-15] MEDS: DILAUDID INJ IVP PRN ×8 (01:00→22:06)
[2023-02-15] MEDS: NEURONTIN CAP 400 MG PO SCH ×3 (05:29→22:06)
[2023-02-15 05:47] LABS: BASOPHILS % (AUTO) 0.3 % (0.2-1.0); EOSINOPHILS # (AUTO) 0.1 x10^3/uL (0.0-0.2); EOSINOPHILS % (AUTO) 1.4 % (0.9-2.9); HEMATOCRIT 35.5 % (42.0-54.0); LYMPHOCYTES % (AUTO) 27.8 % (21.0-51.0); MEAN CORPUSCULAR HEMOGLOBIN 27.9 pg (27.0-34.0); MEAN CORPUSCULAR HGB CONC 33.8 g/dL (33.0-35.0); MEAN CORPUSCULAR VOLUME 82.5 fL (80.0-100.0); MEAN PLATELET VOLUME 6.5 fL (7.4-11.0); MONOCYTES # (AUTO) 0.9 x10^3/uL (0.3-0.8); MONOCYTES % (AUTO) 8.1 % (0.0-13.0); NEUTROPHILS # (AUTO) 6.7 x10^3/uL (2.2-4.8); NEUTROPHILS % (AUTO) 62.4 % (42.0-75.0); PLATELET COUNT 668 X10^3/uL (150.0-450.0); RED BLOOD COUNT 4.31 X10^6/uL (4.7-6.0); RED CELL DISTRIBUTION WIDTH 14.7 % (11.6-16.5); WHITE BLOOD COUNT 10.8 X10^3/uL (3.6-10.0)
[2023-02-15 05:49] LABS: ERYTHROCYTE SEDIMENTATION RATE 113 MM/HOUR (0-15)
[2023-02-15 06:03] LABS: ALANINE AMINOTRANSFERASE 35 Units/L (12-78); ALBUMIN 2.6 g/dL (3.4-5.0); ALKALINE PHOSPHATASE 109 Units/L (46-116); ASPARTATE AMINO TRANSFERASE 27 Units/L (15-37); BLOOD UREA NITROGEN 13 mg/dL (7-18); CALCIUM 9.1 mg/dL (8.5-10.1); CARBON DIOXIDE 30.5 mmol/L (21-32); CHLORIDE 99 mmol/L (98-107); COR CA(FOR HYPOALB) 10.2 mg/dL (8.5-10.1); COR NA(FOR HYPERGLY) 138 mmol/L (136-145); CREATININE 0.59 mg/dL (0.70-1.30); GLUCOSE 150 mg/dL (65-99); MAGNESIUM 1.8 mg/dL (2.0-2.9); POTASSIUM 4.5 mmol/L (3.5-5.1); SODIUM 137 mmol/L (136-145); TOTAL PROTEIN 7.7 g/dL (6.4-8.2); eGFR NON BLACK RACES > 60 (>60)
[2023-02-15] MEDS: MAGNESIUM SULFATE 1 GRAM/100 mL PREMIX 1 G/100 ML BAG IV PRN (06:09)
[2023-02-15] MEDS: NORCO 10/325 TAB PO PRN ×3 (06:16→18:00)
[2023-02-15] MEDS: LEVAQUIN PREMIX IV 750 MG 750 MG/150 ML BAG IV SCH (09:24)
[2023-02-15] MEDS: INDERAL TAB 10 MG PO SCH ×2 (09:24→20:07)
[2023-02-15] MEDS: ZESTRIL TAB 5 MG PO SCH (09:26)
[2023-02-15] MEDS: TEFLARO 600 MG in NS 100 ML IV 100 ML IV SCH ×2 (09:26→20:05)
[2023-02-15] MEDS: LEVEMIR SC SCH ×2 (09:30→20:13)
[2023-02-15] MEDS ORDERED: NS 1,000 ML IV 1,000 ML ONE (09:45)
[2023-02-15] MEDS: NovoLIN R (or HumuLIN R) SUBCUT PRN ×2 (12:11→18:04)
--- NOTE | 2023-02-15 16:27 | PCM.PROG ---
Progress Note Progress Note for Day of Date of Exam: 02/15/23 Subjective Subjective: Patient is alert and awake this morning. MRI revealed that he has osteomyelitis and multiple small moles on his hand and base of his a couple of his metacarpal bones. Blood cultures and wound culture grew out coagulase positive Staphylococcus aureus. It is sensitive to Levaquin and ceftaroline. He is going to be getting a PICC line done later today and we will plan on discharging patient tomorrow. Home health care would not manage the PICC line they report because is not covered with his insurance so he will have to come to the emergency department twice a day over the next approximately 5 weeks to get IV antibiotics for the treatment of his osteomyelitis. I discussed with him getting him set up with a infectious disease specialist and he reports he has seen Dr. Weaver in [place], [place] in the past so we will refer him back there. Past Medical Family Social History Past Med/Fam/Surg Hx: No changes since H&P Allergies: Allergies Penicillins Allergy (Verified 12/22/21 17:12) Review of Systems ROS: No change since H&P Vital Signs and I&O's Vital Signs: Temperature 98.6 F Temperature 98.6 F Pulse Rate [Brachial] 98 Pulse Rate 106 Pulse Rate 101 Respiratory Rate 20 Respiratory Rate 20 Blood Pressure [Left Arm] 140/71 Blood Pressure [Right Arm] 133/74 Blood Pressure 128/74 Blood Pressure 113/59 O2 Sat by Pulse Oximetry 99 O2 Sat by Pulse Oximetry 99 Intake and Output: Intake & Output 02/13/23 02/14/23 02/15/23 02/16/23 11:59 11:59 11:59 11:59 Intake Total 1767 / 1767 1780 / 1780 2210 / 2210 840 / 840 Balance 1767 / 1767 1780 / 1780 2210 / 2210 840 / 840 Physical Exam Oriented: Normal, Time, Person and Place Eyes: Normal Ear: Normal Nose: Normal Throat: Normal Respiratory: Normal Cardiovascular: Normal : Normal Auscultation: Bowel Sounds: Normal Tenderness: Normal Skin: Other (Significant swelling and redness to the dorsum of the left hand .Area of old injury to the left hypothenar eminence is not red or swollen ) Musculoskeletal: Normal Psychiatric: Normal Mood Description: Calm Affect: Normal Speech Pattern: Clear and Appropriate Laboratory and Diagnostics Result Diagrams: 02/15/23 05:16 02/15/23 05:16 Labs: 02/04/23 18:58 Hand - Left Wound Gram Stain - Final 02/04/23 18:58 Hand - Left Wound Culture - Final Staphylococcus Aureus 02/02/23 17:37 Blood Blood Culture - Final Staphylococcus Aureus 02/02/23 17:30 Blood Blood Culture - Final Staphylococcus Aureus Laboratory WBC 10.8 X10^3/uL (3.6-10.0) H 02/15/23 05:16 RBC 4.31 X10^6/uL (4.7-6.0) L 02/15/23 05:16 Hgb 12.0 g/dL (13.5-18.0) L 02/15/23 05:16 Hct 35.5 % (42.0-54.0) L 02/15/23 05:16 MCV 82.5 fL (80.0-100.0) 02/15/23 05:16 MCH 27.9 pg (27.0-34.0) 02/15/23 05:16 MCHC 33.8 g/dL (33.0-35.0) 02/15/23 05:16 RDW 14.7 % (11.6-16.5) 02/15/23 05:16 Plt Count 668 X10^3/uL (150.0-450.0) H 02/15/23 05:16 Plt Count Comment Increased (ADEQUATE) 02/09/23 05:56 MPV 6.5 fL (7.4-11.0) L 02/15/23 05:16 Neut % (Auto) 62.4 % (42.0-75.0) 02/15/23 05:16 Lymph % (Auto) 27.8 % (21.0-51.0) 02/15/23 05:16 [place] % (Auto) 8.1 % (0.0-13.0) 02/15/23 05:16 Eos % (Auto) 1.4 % (0.9-2.9) 02/15/23 05:16 Baso % (Auto) 0.3 % (0.2-1.0) 02/15/23 05:16 Neut # (Auto) 6.7 x10^3/uL (2.2-4.8) H 02/15/23 05:16 Lymph # (Auto) 3.0 X10^3/uL (1.3-2.9) H 02/15/23 05:16 [place] # (Auto) 0.9 x10^3/uL (0.3-0.8) H 02/15/23 05:16 Eos # (Auto) 0.1 x10^3/uL (0.0-0.2) 02/15/23 05:16 Baso # (Auto) 0.0 X10^3/uL (0.0-0.1) 02/15/23 05:16 Absolute Nucleated RBC 0.0 /100WBC 02/15/23 05:16 Plt Morphology Comment Normal (NORMAL) 02/09/23 05:56 RBC Morphology Normal (NORMAL) 02/09/23 05:56 ESR 113 MM/HOUR (0-15) H 02/15/23 05:16 Sodium 137 mmol/L (136-145) 02/15/23 05:16 Corrected Sodium 138 mmol/L (136-145) 02/15/23 05:16 Potassium 4.5 mmol/L (3.5-5.1) 02/15/23 05:16 Chloride 99 mmol/L (98-107) 02/15/23 05:16 Carbon Dioxide 30.5 mmol/L (21-32) 02/15/23 05:16 BUN 13 mg/dL (7-18) 02/15/23 05:16 Creatinine 0.59 mg/dL (0.70-1.30) L 02/15/23 05:16 Est GFR (MDRD) Af Amer > 60 (>60) 02/15/23 05:16 Est GFR (MDRD) Non-Af > 60 (>60) 02/15/23 05:16 Glucose 150 mg/dL (65-99) H 02/15/23 05:16 POC Glucose (mg/dL) 193 mg/dL (65-99) H 02/15/23 12:02 Lactic Acid 1.2 mmol/L (0.4-2.0) 02/02/23 17:37 Calcium 9.1 mg/dL (8.5-10.1) 02/15/23 05:16 Corrected Calcium 10.2 mg/dL (8.5-10.1) H 02/15/23 05:16 Magnesium 1.8 mg/dL (2.0-2.9) L 02/15/23 05:16 Total Bilirubin 0.10 mg/dL (0.2-1.0) L 02/15/23 05:16 AST 27 Units/L (15-37) 02/15/23 05:16 ALT 35 Units/L (12-78) 02/15/23 05:16 Alkaline Phosphatase 109 Units/L (46-116) 02/15/23 05:16 C-Reactive Protein 13.60 mg/L (0-3.0) H 02/15/23 05:16 Total Protein 7.7 g/dL (6.4-8.2) 02/15/23 05:16 Albumin 2.6 g/dL (3.4-5.0) L 02/15/23 05:16 Globulin 5.1 g/dL (2.5-4.5) H 02/15/23 05:16 Albumin/Globulin Ratio 0.5 Ratio (1.1-2.1) L 02/15/23 05:16 Specimen Type Clean catch urine 02/02/23 18:20 Urine Color Straw (YELLOW) 02/02/23 18:20 Urine Appearance Clear (CLEAR) 02/02/23 18:20 Urine pH 6.0 (5.0 - 8.0) 02/02/23 18:20 Ur Specific [place] 1.010 (1.000-1.030) 02/02/23 18:20 Urine Protein Negative (NEGATIVE) 02/02/23 18:20 Urine Glucose (UA) 4+ (NEGATIVE) 02/02/23 18:20 Urine Ketones Negative (NEGATIVE) 02/02/23 18:20 Urine Blood Negative (NEGATIVE) 02/02/23 18:20 Urine Nitrite Negative (NEGATIVE) 02/02/23 18:20 Urine Bilirubin Negative (NEGATIVE) 02/02/23 18:20 Urine Urobilinogen Normal (NORMAL) 02/02/23 18:20 Ur Leukocyte Esterase Negative (NEGATIVE) 02/02/23 18:20 Random Vancomycin 8.7 ug/mL 02/08/23 05:58 Urine Opiates Screen Negative (NEG=<300) 02/02/23 18:20 Urine Methadone Screen Negative (NEG=<300) 02/02/23 18:20 Ur Barbiturates Screen Negative (NEG=<200) 02/02/23 18:20 Ur Phencyclidine Scrn Negative (NEG=<25) 02/02/23 18:20 Ur Amphetamines Screen Positive (NEG=<1000) 02/02/23 18:20 U Benzodiazepines Scrn Negative (NEG=<200) 02/02/23 18:20 Urine Cocaine Screen Negative (NEG=<300) 02/02/23 18:20 U Marijuana (THC) Screen Negative (NEG=<50) 02/02/23 18:20 Acetone, Semi-Quant Negative (NEGATIVE) 02/07/23 08:15 Plan (1) Osteomyelitis: Status: Acute Plan: Continue Levaquin 750 mg IV daily. I am adding ceftaroline a 5th generation cephalosporin at 600 mg IV every 12 hours since it has a FERNANDO of less than 0.5 for the coagulase positive Staphylococcus aureus. We will arrange for him to get a PICC today and plan on discharging tomorrow. We will be giving him set up to come to the emergency department for IV antibiotics over the next 5 weeks. (2) Cellulitis of hand, left: Status: Acute Plan: Continue IV levofloxacin at 750 mg IV daily. MRI yesterday shows t hat he does indeed have osteomyelitis as well as cellulitis. We are adding ceftaroline 600 mg IV every 12 hours. (3) Cellulitis of forearm, left: Status: Acute Plan: Continue IV Levaquin at this time. Adding ceftaroline 600 mg IV every 12 hours for improved coverage. (4) Hypomagnesemia: Status: Resolved Plan: Potassium/magnesium replacement protocol. (5) Hypokalemia: Status: Resolved Plan: Potassium/magnesium replacement protocol. (6) Left arm pain: Status: Acute Plan: I will add hydrocodone/acetaminophen 10/325 1 to 2 tablets every 4 hours for pain. He has IV Dilaudid to take for as needed pain as well. (7) Diabetic peripheral neuropathy associated with type 2 diabetes mellitus: Status: Chronic Plan: I will change patient's gabapentin from 800 mg at bedtime to 3 times daily. 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 Continue Levemir with 25 units in the morning and 20 units at night. (9) COPD (chronic obstructive pulmonary disease): Status: Chronic Qualifiers: COPD type: unspecified COPD Qualified Code(s): J44.9 - Chronic obstructive pulmonary disease, unspecified Plan: I will discuss with patient with started him on treatment for this since he is not currently taking anything.
[2023-02-15] MEDS: SNACK - Diabetic Appropriate PO SCH (20:16)
[2023-02-16] MEDS: DILAUDID INJ IVP PRN ×7 (00:06→16:13)
[2023-02-16] MEDS: NEURONTIN CAP 400 MG PO SCH ×2 (05:39→14:21)
[2023-02-16 06:02] LABS: BASOPHILS # (AUTO) 0.1 X10^3/uL (0.0-0.1); BASOPHILS % (AUTO) 1.3 % (0.2-1.0); EOSINOPHILS # (AUTO) 0.1 x10^3/uL (0.0-0.2); EOSINOPHILS % (AUTO) 1.1 % (0.9-2.9); HEMATOCRIT 37.3 % (42.0-54.0); HEMOGLOBIN 12.7 g/dL (13.5-18.0); LYMPHOCYTES % (AUTO) 27.1 % (21.0-51.0); MEAN CORPUSCULAR VOLUME 82.3 fL (80.0-100.0); MEAN PLATELET VOLUME 6.7 fL (7.4-11.0); MONOCYTES % (AUTO) 8.7 % (0.0-13.0); NEUTROPHILS # (AUTO) 6.9 x10^3/uL (2.2-4.8); NEUTROPHILS % (AUTO) 61.8 % (42.0-75.0); PLATELET COUNT 624 X10^3/uL (150.0-450.0); RED BLOOD COUNT 4.54 X10^6/uL (4.7-6.0); RED CELL DISTRIBUTION WIDTH 15.3 % (11.6-16.5); WHITE BLOOD COUNT 11.2 X10^3/uL (3.6-10.0)
[2023-02-16 06:14] LABS: ERYTHROCYTE SEDIMENTATION RATE 116 MM/HOUR (0-15)
[2023-02-16 06:38] LABS: ALANINE AMINOTRANSFERASE 41 Units/L (12-78); ALBUMIN 2.9 g/dL (3.4-5.0); ALKALINE PHOSPHATASE 102 Units/L (46-116); ASPARTATE AMINO TRANSFERASE 31 Units/L (15-37); BLOOD UREA NITROGEN 15 mg/dL (7-18); CALCIUM 9.6 mg/dL (8.5-10.1); CARBON DIOXIDE 28.4 mmol/L (21-32); CHLORIDE 100 mmol/L (98-107); COR CA(FOR HYPOALB) 10.5 mg/dL (8.5-10.1); CREATININE 0.56 mg/dL (0.70-1.30); GLUCOSE 89 mg/dL (65-99); MAGNESIUM 1.9 mg/dL (2.0-2.9); POTASSIUM 4.3 mmol/L (3.5-5.1); SODIUM 138 mmol/L (136-145); eGFR NON BLACK RACES > 60 (>60)
[2023-02-16] MEDS ORDERED: NS 100 ML IV 100 ML ONE (09:04)
[2023-02-16] MEDS: ZESTRIL TAB 5 MG PO SCH (09:10)
[2023-02-16] MEDS: INDERAL TAB 10 MG PO SCH (09:10)
[2023-02-16] MEDS: TEFLARO 600 MG in NS 100 ML IV 100 ML IV SCH ×2 (09:12→17:11)
[2023-02-16] MEDS: LEVEMIR SC SCH (09:13)
[2023-02-16] MEDS: LEVAQUIN PREMIX IV 750 MG 750 MG/150 ML BAG IV SCH (09:55)
--- NOTE | 2023-02-16 09:57 | NOTE.SOAP ---
Soap Note Note for Day of Date of Exam: 02/15/23 Subjective Data Subjective Data: See previous notes . To be d/cd home with home health to dressing changes left hand. PICC david to be placed to give long teerm IV antibiotics to treat osteomyelitis left hand Objective Data Respiratory Rate: 18 Objective Data: dressing intact left hand Assessment Assessment: abscess left hand with positive blood cultures , osteomyelitis left hand Plan Plan: F/U with me in a week after discharge.
--- NOTE | 2023-02-16 10:40 | RAD ---
HISTORYLEFT HAND/FOREARM CELLULITISSTUDYHAND, LEFTCOMPARISONNoneTECHNIQUEThree-view left hand.FINDINGSFingers are in a flexed position limiting evaluation. No discernible acute fracture. No aggressive osseous lesion. Mild thumb MCP joint osteoarthrosis. There is soft tissue swelling over the dorsum of the hands worst at the metacarpals. Mildly radiopaque material may represent gauze. No cortical destruction or periosteal reaction.IMPRESSIONSoft tissue swelling worst about the dorsum of the metacarpals consistent with cellulitis. Abscess not excluded radiographically. Consider MRI if there is concern for osteomyelitis.Electronically signed by: Acosta Shirley (Feb 16, 2023 10:37:37)
--- NOTE | 2023-02-16 11:17 | DR.UPDATE ---
H&P Update Prescription drug monitoring program results: PDMP was not reviewed H&P Reviewed: Yes Any changes to H&P?: No Patient was examined?: Yes Procedures (ALL) - Central Line Placement PCM.CLCO: written consent Time out performed: Yes Patient placed pm monitor/pulse ox: Yes prep: mask, gown, gloves, other Centrial line prep: chlorhexidine scrub, sterile drapes applied Local anesthsia used: lidocane 1% Ultrasound used for placement: Yes (right basilic id'd via u/s and cannulation visualized) Central line lumen ininserted: double (3cm exposed of untrimmed 50cm catheter.) Post procedure: good blood return, all ports aspirated, flushed,capped, sterile dressing applied Post procedure xray: tip oc catheter in good position (appears svc), no pneumothorax seen Patient tolerated procedure: Yes Complications: none
[2023-02-16] MEDS: NORCO 10/325 TAB PO PRN (11:25)
--- NOTE | 2023-02-16 12:05 | RAD ---
HISTORYpicc lineSTUDYCHEST, 1 VIEWCOMPARISONNo recent comparison studiesTECHNIQUEPortable chest radiographFINDINGSPICC line is placed in the right upper extremity and catheter tip terminates within the distal SVC. No pneumothorax is identified. The lungs are clear. The heart size is normal.IMPRESSIONThe right-sided PICC line terminates in the distal SVC.The lungs are clear.Electronically signed by: ARNOLDO PENA (Feb 16, 2023 12:03:26)
[2023-02-16] MEDS ORDERED: NS IRRIGATION* 500 ML IR ONE (15:52)
[2023-02-16 16:36] VITALS: BP 119/69; PULSE 101; TEMP 99.8; O2SAT 98
[2023-02-16] MEDS: NovoLIN R (or HumuLIN R) SUBCUT PRN (17:29)
== END 2023-02-16 18:00 | disposition home or self-care (01) | DRG 580 ==
LOC: ER 16:41 → MED/SURG 16:41 → INTOOBSV 19:35 → OBSVTOIN 19:35 → MED/SURG 20:28
PROVIDERS: ADMIT Family Medicine; ATTEND Family Medicine
DX: L02.512 Cutaneous abscess of left hand; I10 Essential (primary) hypertension; R79.82 Elevated C-reactive protein (CRP); F15.90 Other stimulant use, unspecified, uncomplicated; M86.9 Osteomyelitis, unspecified; B95.61 Methicillin susceptible Staphylococcus aureus infection as the cause of diseases classified elsewhere; J44.9 Chronic obstructive pulmonary disease, unspecified; M86.142 Other acute osteomyelitis, left hand; E87.6 Hypokalemia; R70.0 Elevated erythrocyte sedimentation rate; E83.42 Hypomagnesemia; M79.642 Pain in left hand; E11.65 Type 2 diabetes mellitus with hyperglycemia; L03.114 Cellulitis of left upper limb; E11.42 Type 2 diabetes mellitus with diabetic polyneuropathy